=== PATIENT | male | born 1945 | race Caucasian/White ===

== ENCOUNTER → 2023-04-28 07:29 | Outpatient (REF) | payer OTHER, SELFPAY | LOC: RAD 07:29 | PROVIDERS: ATTENDING PHYSICIAN Surgery Vascular Surgery; FAMILY PHYSICIAN Family Medicine | DX: I65.23 Occlusion and stenosis of bilateral carotid arteries (principal) | CPT/HCPCS: 93880 ==

== ENCOUNTER → 2023-10-14 07:09 | Outpatient (REF) | payer OTHER, SELFPAY | LOC: RCS 07:09 | PROVIDERS: ATTENDING PHYSICIAN Internal Medicine Cardiovascular Disease; FAMILY PHYSICIAN Family Medicine | DX: I42.0 Dilated cardiomyopathy (principal) | CPT/HCPCS: 93306; Q9950 ==

== ENCOUNTER 2023-10-22 09:04 | Day surgery (SDC) | payer OTHER, SELFPAY ==
[2023-10-20 07:14] VITALS: BMI 31.3
[2023-10-20 07:42] LABS: % Basophils 0.7 % (0-2); % Immature Granulocytes 0.3 % (0-0.5); % Lymphocytes 24.5 % (20.5-51.1); % Monocytes 8.6 % (1.7-9.3); % Neutrophils 64.9 % (42.2-75.2); Absolute Basophils 0.1 10^3/uL (0-0.2); Absolute Eosinophils 0.1 10^3/uL (0-0.7); Absolute Lymphocytes 1.8 10^3/uL (1.2-3.4); Absolute Monocytes 0.6 10^3/uL (0.1-0.6); Absolute Neutrophils 4.8 10^3/uL (1.4-6.5); Hematocrit 44.5 % (39.0-52.0); Hemoglobin 14.9 g/dL (13.0-18.0); Mean Corp Hgb Conc. 33.5 g/dL (33.0-37.0); Mean Corpuscular Hgb 31.1 pg (27.0-31.0); Mean Corpuscular Volume 92.9 fL (80.0-94.0); Mean Platelet Volume 9.9 fL (7.4-10.4); Nucleated Red Blood Cells % 0 % (-); Platelet Count 198 10^3/uL (130-400); Red Blood Cell Count 4.79 10^6/uL (4.70-6.10); White Blood Cell Count 7.3 10^3/uL (4.8-10.8)
[2023-10-20 07:52] LABS: ALT (SGPT) 21 U/L (0-50); AST (SGOT) 34 U/L (17-59); Albumin 4.1 g/dl (3.5-5.0); Alkaline Phosphatase 94 U/L (38-126); Blood Urea Nitrogen 20 mg/dl (9-20); Calcium 9.4 mg/dl (8.4-10.2); Carbon Dioxide 29 mmol/L (22-30); Estimated Creatinine Clearance 79 ml/min; Glucose 118 mg/dl (70-99); Total Bilirubin 1.2 mg/dl (0.2-1.3); Total Protein 7.9 g/dl (6.3-8.2); eGFR > 60.00
[2023-10-20 07:59] LABS: Chloride 102 mmol/L (98-107); Sodium 141 mmol/L (135-145)
[2023-10-20 08:13] LABS: INR 1.44; PT 17.3 Sec (11.4-14.6)
[2023-10-22] VITALS (14 sets, daily range): BP systolic 120–144; BP diastolic 62–78; BMI 31.1
[2023-10-22] MEDS: NSS 312 ML IV (09:40)
[2023-10-22 09:55] LABS: Glucose - Point of Care 140 mg/dl (70-99)
[2023-10-22] MEDS: LOW STRENGTH ASPIRIN 243 MG PO (10:07)
--- NOTE | 2023-10-22 10:44 | ITS.CL.CATH ---
Customer Account Specialist - Catheterization
Cardiac Catheterization
Procedure Report:
LEFT AND RIGHT HEART CATHETERIZATION
Date of Procedure: October 22, 2023
Referring: Roberto Yoo
PROCEDURES:
1. Left heart catheterization, coronary angiogram.
2. Right heart catheterization.
3. Ultrasound-guided access.
INDICATION: Mr. Cleveland is a 78-year-old gentleman with past medical history of coronary artery disease status post PCI in 2005, CABG x 1 with aortic valve replacement in 2016, right lower extremity femoral bypass with stenting 2020, left carotid
endarterectomy with complete chronic occlusion of right, medically managed, paroxysmal atrial fibrillation on chronic Coumadin, held 5 days ago, PVCs, hypertension, hyperlipidemia, known dilated cardiomyopathy with heart failure with reduced
ejection fraction and underlying left bundle branch block with recent reduction further in LVEF down to 10 to 15% on October 14, 2023 being referred for a left and right heart catheterization.
ACCESS:
1. Left radial artery, 6 Peruvian sheath, under ultrasound guidance.
2. Left common femoral vein, 6 [place]uvian sheath, under ultrasound guidance using a micropuncture kit
HEMODYNAMICS : (mmHg)
RA (m) : 13
RV (s/d,m) : 36/11, 19
PA (s/d, m) : 33/21
PCWP (m) : 24
PA saturation: 66.9% on room air
AO saturation: 99.6% on room air
RA saturation: 66.2 per on room air
Cardiac Output : 4.2 L/min by William
Cardiac Index : 1.8 L/min/m-2 by William
Systemic vascular resistance: 2535 dsc^(-5)
Pulmonary vascular resistance: 2.14 torres unit
Heart rate: 64 bpm.
AO (s/d) : 164/116
CORONARY FINDINGS
DOMINANCE: Right
LEFT MAIN: The left main is a large-caliber vessel which gives rise to the left into descending artery and the circumflex artery. There is mild diffuse atherosclerotic plaque.
LEFT ANTERIOR DESCENDING: The left into descending artery is a large-caliber vessel which gives rise to one major diagonal branch and multiple small caliber diagonal branches as it courses through the anterior interventricular groove towards the
apex. There is minimal luminal irregularities.
CIRCUMFLEX: The left circumflex artery is a medium caliber vessel which gives rise to 3 major obtuse marginal branches. There is ostial left circumflex 40% stenosis and otherwise mild diffuse atherosclerotic plaque.
RIGHT CORONARY ARTERY: The right coronary artery is a large-caliber, dominant vessel which gives rise to the right posterior descending artery and the right posterolateral branch. There is a hazy high-grade 70 to 80% mid RCA in-stent restenosis
with SUKHI II flow down the distal vessel however the RPDA is filled from the patent saphenous vein graft with competitive flow antegradely through the RCA. There is diffuse 50 to 60% atherosclerotic plaque starting in the proximal RCA.
SAPHENOUS VEIN GRAFT (SVG): Widely patent saphenous vein graft to the RPDA.
SEDATION: 54 minutes of procedural sedation was utilized. An independent medical legal investigator was present to assist with and help manage the patient's level of consciousness and physiologic status.
RADIATION SUMMARY: Fluoro Time (min): 5.9, Dose (mGy): 491.53, DAP (Gy.cm2) : 42.2
Closure Device:
1. Vascular band over left radial artery, 10 cc of air.
2. Manual pressure was held over the left common femoral venous access site with successful hemostasis.
CONCLUSIONS
1. Significant mid RCA disease with RPDA filling through a widely patent saphenous vein graft.
2. Nonobstructive coronary artery disease in the left coronary system.
3. Elevated right and left-sided filling pressures with mildly decreased cardiac output in the setting of severely elevated systemic vascular resistance.
RECOMMENDATIONS
1. 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
2. Diuresis to optimize filling pressures.
3. Consideration for possible WASTEWATER PROJECT ENGINEER-D in the setting of chronic left bundle branch block.
4. Given allergy to DANN inhibitor/ARB, consider adding hydralazine nitrate as an outpatient.
5. Referral for outpatient cardiac rehab.
Copy to: Roberto Yoo
Meghana Herrera MD, FACC, [facility]
[2023-10-22] MEDS: NSS 1000 IV (11:55)
[2023-10-22 12:27] LABS: Glucose - Point of Care 117 mg/dl (70-99)
[2023-10-22] MEDS: LASIX 40 MG IV (12:30)
--- NOTE | 2023-10-22 14:07 | PTCARENOTE ---
Dr Herrera at pt beside speaking to pt and pt's .
== END 2023-10-22 15:05 | disposition home or self-care (01) ==
LOC: CATH 09:04
PROVIDERS: ATTENDING PHYSICIAN Internal Medicine Interventional Cardiology; FAMILY PHYSICIAN Family Medicine; OTHER PHYSICIAN Internal Medicine Cardiovascular Disease
DX: I25.10 Atherosclerotic heart disease of native coronary artery without angina pectoris (principal); I42.0 Dilated cardiomyopathy; I44.7 Left bundle-branch block, unspecified; I11.0 Hypertensive heart disease with heart failure; I50.22 Chronic systolic (congestive) heart failure; I48.0 Paroxysmal atrial fibrillation; E78.5 Hyperlipidemia, unspecified; Z95.2 Presence of prosthetic heart valve; Z95.5 Presence of coronary angioplasty implant and graft; E11.69 Type 2 diabetes mellitus with other specified complication; J44.9 Chronic obstructive pulmonary disease, unspecified; Z87.891 Personal history of nicotine dependence; Z79.82 Long term (current) use of aspirin; Z79.84 Long term (current) use of oral hypoglycemic drugs; Z79.4 Long term (current) use of insulin; Z79.01 Long term (current) use of anticoagulants
CPT/HCPCS: 99152; 99153; 36415; 80053; 82962; 85025; 85610; 93005; 93459; C1894; Q9967

== ENCOUNTER → 2023-11-06 07:45 | Outpatient (REF) | payer OTHER, SELFPAY | LOC: RAD 07:45 | PROVIDERS: ATTENDING PHYSICIAN Surgery Vascular Surgery; FAMILY PHYSICIAN Family Medicine | DX: I73.9 Peripheral vascular disease, unspecified (principal); I77.9 Disorder of arteries and arterioles, unspecified | CPT/HCPCS: 93880; 93922; 93925 ==

== ENCOUNTER 2023-11-23 12:51 | Inpatient (IN) | payer OTHER, SELFPAY ==
[2023-11-23] VITALS (36 sets, daily range): BP systolic 88–138; BP diastolic 57–116; BMI 31.4
[2023-11-23 09:42] LABS: % Basophils 0.5 % (0-2); % Eosinophils 1.5 % (0-6); % Immature Granulocytes 0.4 % (0-0.5); % Lymphocytes 18.4 % (20.5-51.1); % Monocytes 6.8 % (1.7-9.3); % Neutrophils 72.4 % (42.2-75.2); Absolute Basophils 0.1 10^3/uL (0-0.2); Absolute Eosinophils 0.2 10^3/uL (0-0.7); Absolute Lymphocytes 1.8 10^3/uL (1.2-3.4); Absolute Monocytes 0.7 10^3/uL (0.1-0.6); Absolute Neutrophils 7.2 10^3/uL (1.4-6.5); Hematocrit 41.8 % (39.0-52.0); Hemoglobin 14.3 g/dL (13.0-18.0); Mean Corp Hgb Conc. 34.2 g/dL (33.0-37.0); Mean Corpuscular Hgb 30.9 pg (27.0-31.0); Mean Corpuscular Volume 90.3 fL (80.0-94.0); Nucleated Red Blood Cells % 0 % (-); Platelet Count 232 10^3/uL (130-400); Red Blood Cell Count 4.63 10^6/uL (4.70-6.10); Red Cell Dist. Width 13.7 % (11.5-14.5); White Blood Cell Count 9.9 10^3/uL (4.8-10.8)
--- NOTE | 2023-11-23 09:43 | ED.GENMED ---
History of Present Illness
General
Chief Complaint: Chest Pain
Source: patient, records, spouse and family
Exam Limitations: none
Time Seen by Provider: 11/23/23 09:37
Nursing documentation reviewed up to this point in time: agreed with
Travel History
Have you had any contact with someone who has COVID-19?: No
Do you have any symptoms of coronavirus? Fever > 100 degrees, chills, cough, shortness of breath, sore throat, loss of taste or smell, muscle aches, or headache?: No
History of Present Illness
History of Present Illness:
78-year-old male cardiomyopathy heart failure patient of Dr. Yoo status post cath recently told his valves and vessels were okay he is scheduled for an AICD in a few weeks presents with a few days of fatigue shortness of breath chest pain fast
heart rates, has been on his blood thinner, has been taking his diuretic
Past History
Past History
ED Past Medical History: Arrthythmia, CAD, CHF, HTN and NIDDM
ED Past Surgical History: Cardiac
Social History
Tobacco: Smoker
Alcohol: Former
Drug: None
Personal:
Living: with family
Employment: Retired
Review of Systems
Review of Systems
All Other Systems: Not applicable
Constitutional: Reports fatigue; Denies fever
EENT: Reports no symptoms
Respiratory: Reports trouble breathing
Cardiac: Reports chest pain and palpitations; Denies diaphoresis or syncope
ABD/GI: Reports no symptoms
: Reports no symptoms
Musculoskeletal: Reports no symptoms
Skin: Reports no symptoms
Neurological: Reports dizzy and weakness
Endocrine: Reports no symptoms
Phy Exam
Physical Exam
Physical Exam:
Physical Exam
General: 78 male chronically ill-appearing
Neck: Dry lips flat neck veins
Heart: Tachycardia
Lungs: No rales
Abdomen: Not
Neuro: alert and oriented. no focal neurological deficits
Skin: no rash
Psychiatric: well kept. interactive and cooperative
Extremities: no edema.
Scores
Heart Failure Risk
Heart Failure Risk Score: Yes
History of Stroke or TIA: No
History of intubation for respiratory distress: No
Heart rate on ED arrival >/= 110: Yes
SaO2 <90% on arrival on room air: No
HR >/=110 during 3min walk test (or too ill to perform test): Yes
ECG has acute ischemic changes: No
Urea >/=12mmol/L (BUN 33.6mg/dL): Yes
Serum CO2>/=35mmol/L: No
Troponin I or T elevated to VA Level (0.4mg/dL): No
NT-proBNP >/=5,000ng/L (5,000pg/ml): Yes
HF Risk Score: 4
Admission Status: HIGH RISK 26.1% Consider SNF treatment or admission to hospital
Heart Score for Chest Pain Patients
STEMI patient?: No
History: Slightly or Non-Suspicious
ECG: Nonspecific Repolarization
Age: >/= 65 years
Risk Factors: >/= 3 Risk Factors or History of CAD
Troponin: </= Normal Limit
Heart Score for Chest Pain Patients: 5
Heart Score Risk: 20.3% MACE over next 6 weeks
Course
Orders/Labs/Results
Orders:
Orders
11/23/23 09:00
Electrocardiogram (*1) Urgent
Reason for Study: Chest Pain
EKG- Treatment ONCE
11/23/23 09:30
Complete Blood Count/With Diff Urgent
Comprehensive Metabolic Panel Urgent
Magnesium Urgent
Comment: ADD ON
NT-proBNP Urgent
Comment: ADD ON
Troponin I Urgent
11/23/23 09:31
PTT Urgent
Prothrombin Time Urgent
11/23/23 09:37
CR Chest Portable - 1 View Urgent
Comment:
Reason For Exam: sob
Reason Study Needs to be Portable: Patient Unstable
11/23/23 09:38
Add On- LAB Urgent
Tests Added?: pbnp
11/23/23 09:50
Diltiazem 125 mg/125 ml Nss [Cardizem] 125 mg in 125 ml IV NOW
Initial dose in mg/hr, then titrate:: 5
Titrate to keep:: Heart rate 80-100 bpm
Titrate by mg/hr:: 5 mg/hr
Frequency of titrations (minutes):: 15
Maximum dose in mg/hr:: 15
11/23/23 10:11
Add On- LAB Urgent
Tests Added?: magnesium
11/23/23 10:14
CARDIOLOGY CONSULT Routine
Consulting Provider: Allie Veloz
Was physician already notified: Yes
Reason for consult: afib/CP/SOB
11/23/23 10:27
Furosemide [Lasix] 60 mg IV NOW STA
11/23/23 12:37
Admit/Transfer Patient As Directed
Co-Sign Provider:
Level of Care: Inpatient admission
Assign to:: IVU
Physician / Group: Subhash
Diagnosis: CHF, afib
Reason for Hospitalization: CHF, afib
Expected length of stay greater than two midnights?: Yes
ELOS- Estimated Length of Stay in days: 4
I certify the patient meets the requirements for IP care: Yes
11/23/23 12:39
Code Status As Directed
Resuscitation Status: Full Code
11/23/23 13:41
Dextrose 50%-Water [Dextrose 50% Syringe] 12.5 grams IV [id number] PRN
Glucagon [GlucaGen] 1 mg IM PRN PRN
11/23/23 13:41
HF DIETARY CONSULT Routine
HF EDUCATOR CONSULT Routine
Comment:
Activity As Directed
Activity Level: With Assistance
Bedside Glucose Monitoring As Directed
Frequency: AC&HS
Additional Instructions:: Change to q6h if pt on TPN, tube feeding or not eating
Intake/ Output As Directed
Frequency: Per unit guidelines
Patient Education As Directed
Type: CHF folder
Comment: give on admission. Document in Interdisciplinary Education record
Sleep Apnea Assessment by RN As Directed
Comment:
Physician Instructions:
Vital Signs As Directed
Frequency: Other
Additional Instructions:: Q12 or per unit guidelines if more frequent.
Weight As Directed
Frequency: Daily
Type of Scale: Standing Scale
Comment: Daily morning weight. If unable to stand, use balanced bed scale.
Weight As Directed
Frequency: Once
Type of Scale: Standing Scale
Comment: Upon Admission. If unable to stand, use balanced bed scale.
Pulse Ox/cont/shift [RESP] Routine
Quantity: 1
Special Instructions: Daily pulse oximetry at rest. If greater than 92% at rest also obtain pulse oximetry
while ambulating as tolerated.
11/23/23 14:30
Troponin I Q6H
Comment: at admission & every 6 hours x 2 (3 total), ECG to be done with each level
11/23/23 Dinner
1800 calorie (15 carb) Diabetic
At Your Request: Full Participation
Fluid Restriction: 1800 mL/day (60 oz)
Diabetic Diet: Sodium, 2 Gram
11/23/23 16:00
Furosemide [Lasix] 80 mg IV BID AT 0800,1600
11/23/23 16:30
Insulin Aspart High Resistance [Novolog Flexpen-High Resistance] See Protocol SC AC
Insulin Aspart Pen [Novolog Flexpen] 5 units SC BID@0730,1630
11/23/23 18:00
Aspirin Low Dose EC [Aspir Low (Enteric Coated)] 81 mg PO QPM
Atorvastatin [Lipitor] 80 mg PO QPM
Potassium Chloride [KCl] 10 meq PO QPM
11/23/23 19:41
Troponin I Q6H
Comment: at admission & every 6 hours x 2 (3 total), ECG to be done with each level
11/23/23 20:00
Apixaban [Eliquis] 5 mg PO BID
11/23/23 22:00
insulin glargine [Lantus U-100 Insulin] 32 unit SC HS
11/24/23 01:41
Troponin I Q6H
Comment: at admission & every 6 hours x 2 (3 total), ECG to be done with each level
11/24/23 06:00
Basic Metabolic Panel IN AM
Glycohemoglobin (HgbA1c) IN AM
11/24/23 08:00
Carvedilol [Coreg] 12.5 mg PO DAILY
Cyanocobalamin [Vitamin B-12] 1,000 mcg PO DAILY
Empagliflozin [Jardiance] 12.5 mg PO DAILY
Magnesium Oxide 500 mg PO DAILY
Multivitamin [Theragran] 1 tablet PO DAILY
Spironolactone [Aldactone] 25 mg PO DAILY
11/25/23 06:00
Basic Metabolic Panel IN AM
11/26/23 06:00
Basic Metabolic Panel IN AM
Abnormal Lab Results
11/23/23 11/23/23
09:30 09:31
RBC 4.63 L 10^6/uL
(4.70-6.10)
Absolute Neuts (auto) 7.2 H 10^3/uL
(1.4-6.5)
Absolute Monos (auto) 0.7 H 10^3/uL
(0.1-0.6)
Lymphocytes % 18.4 L %
(20.5-51.1)
PT 22.2 H Sec
(11.4-14.6)
APTT 45.0 H Sec
(23.4-35.0)
BUN 34 H mg/dl
(9-20)
Creatinine 1.4 H mg/dL
(0.7-1.3)
Glucose 195 H mg/dl
(70-99)
Total Bilirubin 1.5 H mg/dl
(0.2-1.3)
AST 69 H U/L
(17-59)
Troponin I 0.118 H* ng/ml
11/23/23 09:30
11/23/23 09:30
Vital Signs
Initial and Last Documented VS:
Initial Vital Signs
Temp Pulse Resp BP Pulse Ox
98.4 F 73 20 138/75 97
11/23/23 09:06 11/23/23 09:06 11/23/23 09:06 11/23/23 09:06 11/23/23 09:06
Last Documented Vital Signs
Temp Pulse Resp BP Pulse Ox
97.8 F 117 20 115/80 93
11/23/23 13:44 11/23/23 14:15 11/23/23 13:44 11/23/23 14:00 11/23/23 13:44
MDM/Problems Addressed
Differential Diagnosis Includes:
Electrolyte abnormality dehydration rapid A-fib chronic heart failure less likely primary aCS
MDM/Problems Addressed:
Fatigue shortness of breath rapid
Chronic conditions affecting care: DM, HTN, CAD, Cardiomyopathy and Arrhythmia
Acute Exacerbation and/or Progression of Chronic Illness: DM, HTN, Cardiomyopathy and Arrhythmia
*EKG
Interpreted by ED Provider?: Yes
Interpretation: abnormal
Comparison EKG: no comparison EKG present
Heart Rate: 130
Rate: tachycardiac
Rhythm: a-fib
Ischemia: non-specific ST changes
*Ict Account Manager Interpretation
Rate: tachycardiac
Interpretation: abnormal
Heart Rate: 130
Rhythm: a-fib
*Critical Care Note
Total Time (30-74mins, 75-104mins- exclusive of procedures): 32
Data Reviewed
Review of Other/Old Records Reveals: Labs, Records and Operative Reports
Source: patient, records and spouse
Update Note
Update Note:
10:12 AM chest x-ray noted labs noted will try to control his rate, does not have a lot of room for diuresis with his blood pressure message sent to hospitalist and cardiology
ED Attending Note
-
Portions of this chart may have been created with voice recognition software.� Occasional wrong word or��sound alike� substitutions may have occurred due to the inherent limitations of voice recognition software.
Discharge Plan
Departure
Patient Disposition: Admit
Date of Disposition: 11/23/23
Time of Disposition: 10:39
Admit to: IVU
Presentation/result/management discussed w/ accepting MD/DO: Hospitalist
Patient with high blood pressure during this ER visit?: No
Condition: Fair
Covid-19: Not Applicable
Discharge Problem:
Paroxysmal A-fib, Peripheral vascular disease, unspecified, CAD (coronary artery disease), Atrial fibrillation
Interventions
Interventions:
*Risk Screen - Suicide Last Done: 11/23/23 09:31
*General Assessment Last Done: 11/23/23 09:30
*Neglect/Abuse Screening Last Done: 11/23/23 09:31
ED- Fall Risk Assessment Last Done: 11/23/23 10:51
*ED COVID-19 Vaccine History Last Done: 11/23/23 09:11
*Nursing Disposition Last Done: 11/23/23 13:07
ED- Cardiac Assessment Last Done: 11/23/23 09:31
Discharge Date and Time
Discharge Date/Time: 11/23/23 13:30
[2023-11-23] MEDS: CARDIZEM 125 IV (09:53)
[2023-11-23 09:55] LABS: ALT (SGPT) 33 U/L (0-50); AST (SGOT) 69 U/L (17-59); Albumin 3.7 g/dl (3.5-5.0); Alkaline Phosphatase 116 U/L (38-126); Blood Urea Nitrogen 34 mg/dl (9-20); Calcium 9.4 mg/dl (8.4-10.2); Carbon Dioxide 25 mmol/L (22-30); Chloride 102 mmol/L (98-107); Estimated Creatinine Clearance 56 ml/min; Glucose 195 mg/dl (70-99); Potassium 3.9 mmol/L (3.5-5.1); Sodium 137 mmol/L (135-145); Total Bilirubin 1.5 mg/dl (0.2-1.3); Total Protein 7.1 g/dl (6.3-8.2); eGFR 52.09
[2023-11-23 09:56] LABS: INR 1.96; PT 22.2 Sec (11.4-14.6)
[2023-11-23 10:08] LABS: NT-proBNP 9740 pg/ml; Troponin I 0.118 ng/ml
[2023-11-23] MEDS: LASIX 60 MG IV (10:29)
[2023-11-23 10:30] LABS: Magnesium 2.1 mg/dl (1.6-2.3)
--- NOTE | 2023-11-23 12:03 | HPS.HSE ---
Family Physician
-
Family Physician: Dennis Hidalgo
Chief Complaint
-
chest pain, SOB
History of Present Illness
78 y/o M with PMHx:
Chronic HFrEF
Schizophrenia
CAD s/p PCI 2005, CABG x 1 with AVR 2016 (for )
PAD
RLE femoral bypass with stents in 2020
L CEA 2005
Near complete, chronic occlusion of R ICA
LBBB
DM2
COPD
Essential hypertension
Hyperlipidemia
Paroxysmal atrial fibrillation
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
who p/w chief complaints of shortness of breath and chest pain. 4 days ago the patient began having the symptoms. He noticed that he got severely short of breath and had chest pain with climbing 2 flights of stairs. He also felt lightheaded and
had some blurry vision. He denies any palpitations. He denies any weight gain, in fact he says he had weight loss. He does have orthopnea but not paroxysmal nocturnal dyspnea. Denies headache, neck stiffness, nausea, vomiting, diarrhea,
abdominal pain, rash, dysuria.
Medical History
Past Medical History
Past Medical History: Reports Other (as per HPI)
Past Surgical History: Reports Other (as per HPI)
Social History
Tobacco: Former Smoker
Alcohol: Former
Drug: None
Family History
Family History: Not pertinent
Allergies / Home Medications
Allergies reflects when Allergies were last updated in [employer].
Home Medications with original date entered in [employer]
Allergy/Medication List:
Allergies
Allergy/AdvReac Type Severity Reaction Status Date / Time
DANN Inhibitors Allergy Swelling Verified 10/22/23 15:37
enalaprilat [From Vasotec] Allergy angioedema Verified 10/22/23 09:49
lisinopril Allergy angioedema Verified 10/22/23 09:49
losartan Allergy angioedema Verified 10/22/23 09:49
Home Medications
aspirin 81 mg tablet,delayed release 81 mg PO QPM Blood clot prevention/tx 03/20/17
atorvastatin 80 mg tablet 80 mg PO QPM High cholesterol 12/27/20
cyanocobalamin (vitamin B-12) 1,000 mcg tablet 1,000 mcg PO DAILY Supplement 12/27/20
metformin 1,000 mg tablet 1,000 mg PO BID Diabetes 01/15/21
magnesium oxide 500 mg PO DAILY #30 tabs 01/19/21
potassium chloride 10 mEq tablet,extended release 10 meq PO QPM Electrolyte Repletion 08/24/23
furosemide 40 mg tablet 40 mg PO BID Fluid retention/Swelling #0 tabs 10/22/23
insulin glargine 100 unit/mL subcutaneous solution (Lantus U-100 Insulin) 32 unit SC HS Diabetes 10/22/23
spironolactone 25 mg tablet 25 mg PO DAILY #30 tabs 10/22/23
apixaban 5 mg tablet (Eliquis) 5 mg PO BID 11/23/23
carvedilol 25 mg tablet 12.5 mg PO DAILY 11/23/23
empagliflozin 25 mg tablet (Jardiance) 12.5 mg PO DAILY 11/23/23
insulin aspart U-100 100 unit/mL (3 mL) subcutaneous pen (Novolog FlexPen U-100 Insulin aspart) 0 sliding scale dose SC QPM 11/23/23
insulin aspart U-100 100 unit/mL (3 mL) subcutaneous pen (Novolog FlexPen U-100 Insulin aspart) 5 unit SC BID 11/23/23
therapeutic multivitamin 1 tab PO DAILY 11/23/23
Review of Systems
-
History Source: Patient
A 12 point ROS was completed and negative except as noted: Yes
Physical Exam
Vital Signs
Vital Signs
Temp Pulse Resp BP Pulse Ox
98.4 F 135 27 120/91 91
11/23/23 09:06 11/23/23 11:15 11/23/23 11:15 11/23/23 11:15 11/23/23 09:54
Physical Exam
General: Other (.)
Laboratory Results
-
11/23/23 09:30
11/23/23 09:30
Laboratory Results
PT 22.2 Sec (11.4-14.6) H 11/23/23 09:31
INR 1.96 11/23/23 09:31
APTT 45.0 Sec (23.4-35.0) H 11/23/23 09:31
Total Bilirubin 1.5 mg/dl (0.2-1.3) H 11/23/23 09:30
AST 69 U/L (17-59) H 11/23/23 09:30
ALT 33 U/L (0-50) 11/23/23 09:30
Alkaline Phosphatase 116 U/L (38-126) 11/23/23 09:30
Troponin I 0.118 ng/ml H* 11/23/23 09:30
Impression/Plan
-
Gen: NAD, AAOx3.
Eyes: EOMI, PERRLA, no scleral icterus.
Neck: supple.
CV: Tachycardic, irregular irregular, +S1/S2, no m/r/g.
Resp: Rales, greatest in the bases
Abd: +BS, soft, NT, ND
Skin: No rashes.
Neuro: CN 2-12 intact, non-focal.
Psych: Normal mood and affect.
CXR: Suspect mild congestive heart failure.
Acute on chronic HFrEF, paroxysmal atrial fibrillation with rapid ventricular response:
-KATJA, likely cardiorenal syndrome, trend Cr with diuresis
-proBNP 9740
-cont cardizem gtt
-IV Lasix
-daily wts, I/Os, FR
-was for AICD in a few weeks
-cardiology to see
-cont Eliquis/BB/Jardiance/aldactone
-trend trop
DM2:
-cont lantus/premeal novolog/SSI/accuchecks/diabetic diet
Other problems:
Essential hypertension: Cont BB/Aldactone
Hyperlipidemia: cont statin
Schizophrenia
CAD s/p PCI 2005, CABG x 1 with AVR 2017 (for )
PAD: cont ASA/statin
RLE femoral bypass with stents in 2020
L CEA 2005
Near complete, chronic occlusion of R ICA
LBBB
COPD
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
FULL/Eliquis/IVU
--- NOTE | 2023-11-23 12:21 | PHANOTE ---
11/23/2023, med rec tech, spoke to spouse to obtain pt.'s med. history; per spouse, pt. received Jardiance 25 mg from [facility] when he was supposed to receive 10 mg and PCP told pt. it is okay to take 12.5 mg daily; could not confirm with another
source.
--- NOTE | 2023-11-23 13:57 | CON.CAR ---
Consultation
Consultation Request
Date/Time Consultation Requested: 11/23/2023
Date/Time Consultation Performed: 11/23/2023
Requesting Provider: Dr. Cullen
Performing Provider: Dr. Veloz
Reason for Consultation: Rapid atrial fibrillation, heart failure
Medical History
-
Chief Complaint: Shortness of breath and chest pain
History of Present Illness:
I had the pleasure to meet Thuan Cleveland along with his in IVU, 2241 for evaluation of rapid atrial fibrillation and heart failure. Thuan typically follows with my colleague, Dr. Yoo. He is a 78-year-old medically complex gentleman
with significant cardiac and vascular history. He has a history of coronary artery disease status post PCI to the RCA with a Cypher stent 08/06/2005 followed by CABG x 1 [SVG to PDA] along with #27mm bovine pericardial tissue aortic valve replacement
April 14, [address] King for severe aortic stenosis and dilated cardiomyopathy. He also has a history of paroxysmal atrial fibrillation, type 2 diabetes mellitus, left bundle branch block, and hyperlipidemia. In 2004 he required
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 He also has moderate sleep apnea on CPAP. Additionally he follows with Dr. Cesar Gallagher for history of left CEA in 2005. He was recently seen by Dr. Gallagher in routine follow-up in
November 14, 2023 with repeat carotid duplex on 11/06/2023 noting heavy calcified plaque in the right common carotid and internal carotid arteries with very low flow in the internal carotid artery along with decreased velocities. There is minimal plaque
on the left carotid but less than 50%. There were discussions regarding carotid revascularization however he was felt to be too high risk with recommendations for close surveillance imaging and follow-up. Additionally he has a history of
peripheral vascular disease of the lower extremities with noninvasive studies 11/06/2023 with stable disease with known chronic SFA occlusion and patent femoral endarterectomy bypass with stenting on the right from 2020. Recent 2D echocardiogram
noted a reduction of his ejection fraction from 25-30% to 10 to 15% and he underwent repeat left heart catheterization with Dr. Herrera October 22, 2023. He was found to have significant mid RCA stenosis estimated 70-80% with RPDA filled through a
widely patent SVG. There was no obstructive coronary artery disease in the left coronary system. Right heart catheterization found elevated right and left filling pressures with mildly decreased cardiac output and severely elevated SVR [pulm
capillary wedge pressure 24, cardiac index 1.8 L/min/m�, SVR 2535]. He was seen in our office November 12, 2023 by LALI Mckinney. At this office visit his warfarin was transitioned to Eliquis 5 mg twice daily which he started on November 13. No
additional medication changes were made at this visit. He was also set up for placement of a BiV ICD with Dr. Abarca scheduled December 08, 2023. At the time of this visit his weight was recorded as 225 pounds and he was in sinus rhythm. He and his
state that since last Friday he has been more fatigued with worsening shortness of breath and overall ill feeling. He did note some chest pain with climbing 2 flights of stairs along with lightheadedness and blurred vision. This morning he
had difficulty just standing to brush his teeth prompting them to present to the ER for evaluation. He denies chest pain or pressure. He denies fast rates or palpitations. No syncope or near syncope. No bleeding on anticoagulation. He denies
weight gain but feels like he has lost weight
Past medical/surgical history: Dilated cardiomyopathy, single-vessel RCA disease status post bypass surgery in 2016, history of prior RCA stent, severe aortic stenosis status post aortic valve replacement in 2016, hypertension, dyslipidemia, type 2
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
Eliquis anticoagulation, left bundle branch block, cataract surgery status post surgery 2021, COPD with remote history of tobacco use
Past Medical History
Past Medical History: Other (See HPI)
Past Surgical History: Other (See HPI)
Social History
Tobacco: Former Smoker
Alcohol: None
Drug: None
Personal:
Living: With Family
Employment: Retired
Family History
Family History: CAD, Diabetes and Hypertension
Allergies / Home Medications
Allergy/AdvReac Type Severity Reaction Status Date / Time
DANN Inhibitors Allergy Swelling Verified 10/22/23 15:37
enalaprilat [From Vasotec] Allergy angioedema Verified 10/22/23 09:49
lisinopril Allergy angioedema Verified 10/22/23 09:49
losartan Allergy angioedema Verified 10/22/23 09:49
�Medication �Instructions �Recorded �Confirmed �Type
aspirin 81 mg tablet,delayed 81 mg PO QPM Blood clot 03/20/17 11/23/23 History
release prevention/tx
atorvastatin 80 mg tablet 80 mg PO QPM High cholesterol 12/27/20 11/23/23 History
cyanocobalamin (vitamin B-12) 1,000 mcg PO DAILY Supplement 12/27/20 11/23/23 History
1,000 mcg tablet
metformin 1,000 mg tablet 1,000 mg PO BID Diabetes 01/15/21 11/23/23 History
magnesium oxide 500 mg PO DAILY #30 tabs 01/19/21 11/23/23 Rx
potassium chloride 10 mEq 10 meq PO QPM Electrolyte Repletion 08/24/23 11/23/23 History
tablet,extended release
furosemide 40 mg tablet 40 mg PO BID Fluid 10/22/23 11/23/23 Rx
retention/Swelling #0 tabs
insulin glargine 100 unit/mL 32 unit SC HS Diabetes 10/22/23 11/23/23 History
subcutaneous solution (Lantus
U-100 Insulin)
spironolactone 25 mg tablet 25 mg PO DAILY #30 tabs 10/22/23 11/23/23 Rx
apixaban 5 mg tablet (Eliquis) 5 mg PO BID 11/23/23 11/23/23 History
carvedilol 25 mg tablet 12.5 mg PO DAILY 11/23/23 11/23/23 History
empagliflozin 25 mg tablet 12.5 mg PO DAILY 11/23/23 History
(Jardiance)
insulin aspart U-100 100 unit/mL 0 sliding scale dose SC QPM 11/23/23 11/23/23 History
(3 mL) subcutaneous pen (Novolog
FlexPen U-100 Insulin aspart)
insulin aspart U-100 100 unit/mL 5 unit SC BID 11/23/23 11/23/23 History
(3 mL) subcutaneous pen (Novolog
FlexPen U-100 Insulin aspart)
therapeutic multivitamin 1 tab PO DAILY 11/23/23 11/23/23 History
Review of Systems
-
History Source: Patient and Family
Constitutional: Fatigue
EENT: No Symptoms
Respiratory: Trouble Breathing
Cardiac: Chest Pain
Abdomen/GI: No Symptoms
: No Symptoms
Musculoskeletal: No Symptoms
Skin: No Symptoms
Neurological: Weakness
Endocrine: No Symptoms
Hematologic/Lymphatic: No Symptoms
Physical Exam
Vital Signs
Temp Pulse Resp BP Pulse Ox
97.8 F 116 20 103/67 93
11/23/23 13:44 11/23/23 12:45 11/23/23 13:44 11/23/23 12:45 11/23/23 13:44
Lab Results
11/23/23 09:30
11/23/23 09:30
Troponin I 0.118 ng/ml H* 11/23/23 09:30
Ksf-O-Qgqfgmuhtlp Pept 9740 pg/ml 11/23/23 09:30
Physical Exam
General: Well Developed, Well Nourished and Other (Mild respiratory distress)
HEENT: Normocephalic, Anicteric and Moist Mucous Membranes
Respiratory: Other (Bronchovesicular breath sounds with bibasilar crackles)
Cardiac: S1/S2 and Irregular Rhythm (Tachycardic); Negative Murmur or Peripheral Edema
GI: Soft, Non Tender, Non Distended and Normal Bowel Sounds
Skin: Warm; Negative Rash
Neuro: AO x 3 and Nonfocal/Grossly Intact
Psych: Calm
Impression / Plan
-
Collector Of Aquarium Specimens: Dr. Yoo
Nurse Transition: Dr. Abarca
Impression:
Rapid atrial fibrillation
History of paroxysmal atrial fibrillation, last episode postop in 2017
Left bundle branch block
Acute on chronic heart failure with reduced ejection fraction, decompensation likely driven by rapid atrial fibrillation, LV ejection fraction 10 to 15% on echocardiogram
Acute renal insufficiency likely secondary to cardiorenal syndrome
Chest pain with abnormal cardiac troponin
Coronary artery disease status post RCA PCI in 2005 and SVG to PDA in 2016 with recent cardiac catheterization noting significant mid RCA disease with RPDA filling through the widely patent SVG October 22, 2023
Bioprosthetic AVR 2017 for severe aortic stenosis
Hypertension
Hyperlipidemia
Left carotid CEA 2005
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 Gallagher
COPD
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
2D echocardiogram 10/14/2023: Normal LV size with severely reduced LV systolic function, EF estimated 10 to 15%. Apical akinesis. Mild LVH. Grade 3 diastolic dysfunction with increased filling pressures. Mild MR. #27 bovine aortic valve with
peak/mean gradient 9/5 mmHg with trace AI. No significant TR and unable to estimate right heart pressures.
Left heart catheterization 10/22/2023: Right dominant. Left main with mild diffuse atherosclerotic plaque. LAD with minimal luminal irregularities, circumflex with ostial 40% stenosis otherwise mild diffuse plaque. RCA with hazy high-grade 70 to
80% mid RCA in-stent restenosis. Right PDA failed with patent saphenous vein graft and competitive flow through the RCA. Diffuse 50 to 60% plaque in the proximal RCA
Right heart catheterization 10/22/2023:
RA (m) : 13
RV (s/d,m) : 36/11, 19
PA (s/d, m) : 33/21
PCWP (m) : 24
PA saturation: 66.9% on room air
AO saturation: 99.6% on room air
RA saturation: 66.2 per on room air
Cardiac Output : 4.2 L/min by William
Cardiac Index : 1.8 L/min/m-2 by William
Systemic vascular resistance: 2535 dsc^(-5)
Pulmonary vascular resistance: 2.14 torres unit
Heart rate: 64 bpm
Plan:
Patient presents with symptomatic rapid atrial fibrillation and decompensated chronic heart failure with reduced ejection fraction
-He is currently on IV Cardizem drip however given degree of cardiomyopathy we will switch him to amiodarone drip and wean IV Cardizem off. Discussed plan with nursing
-He does have a history of amiodarone use in the remote past which required discontinuation for abnormal LFTs
-He was recently switched from Coumadin to Eliquis on November 12, 2023 and started Eliquis November 14, 2023. Prior to this he did have interruption of his warfarin therapy for cardiac catheterization on October 22, 2023.
-Would prefer to restore sinus rhythm and if respiratory status allows we will proceed with transesophageal echocardiogram/cardioversion on 11/24/2023
-Will discuss with the EP long-term antiarrhythmic therapy
-TSH pending
- LFTs with elevated AST 69 but normal ALT and alkaline phosphatase. AST previously normal at 34 on 10/20/2023 and likely related to hepatic congestion
Acute on chronic HFrEF with borderline cardiac output and elevated SVR at time of cardiac catheterization 10/22/2023
-proBNP 9740
-IV Lasix
-Plan to restore sinus rhythm
-Continue goal-directed medical therapy including carvedilol 12.5 mg which will be increased to twice daily, Jardiance, and spironolactone. Patient has contraindications to use of DANN/ARB or ARNI given angioedema with DANN inhibitor requiring
tracheostomy in remote past
-Patient is currently scheduled for FASTENER SEWING MACHINE OPERATOR�D implant with Dr. Abarca next month, 12/08/2023, and will discuss with EP -would repeat right heart catheterization at the time of device implant
Chest pain with abnormal cardiac troponin and mid RCA stenosis based on recent cardiac catheterization October 22, 2023
-Will review cath films with interventional cardiology
-Initial troponin 0.118, second troponin 0.130. Trend to peak
-Patient is currently chest pain-free
-Continue aspirin and medical therapy including plan to restore sinus rhythm
-Check lipid profile
-Trend cardiac troponin
Acute renal insufficiency in the setting of heart failure and rapid atrial fibrillation, likely low-flow
-Creatinine 1.4, baseline 0.9-1.2
-Monitor renal function with diuresis
Significant peripheral vascular disease including lower extremity PAD and carotid disease followed by Dr. Gallagher
-No active issue
-Continue aspirin and statin
Type 2 diabetes mellitus on insulin
-Last hemoglobin A1c in August 2023 with hemoglobin A1c 8.3% with hemoglobin A1c's dating back to 2017 also in the mid eights
-Discussed importance of improved glycemic control given significant cardiac and vascular disease
-Would benefit from outpatient endocrine appointment as well as a CGM
Bioprosthetic AVR normally functioning based on echocardiogram 10/14/2023
Data Reviewed
-
EKG: Tracing Personally Visualized and interpreted
Radiology: Report Reviewed by me
Medical Tests (Nuc Med, Echo etc): Report Reviewed by me
Labs: Labs Reviewed by me
Old Records: Reviewed
--- NOTE | 2023-11-23 14:21 | PTCARENOTE ---
Rec'd pt from ED AAOx3 w/c/o of 'mild 2/10 chest discomfort' & mild SOB w/exertion. Pt w/IV Cardizem drip infusing at 15mg/mL/hr as ordered by . Pt's VS stable w/BP 108/73. Pt's HR in the 130's-140's w/activity & in the 120's at rest. Pt did have
a 13 beat run of VT just after arrival & Trades Helper consulted notified. Dr Veloz to come see pt. Pt w/call gonzalez within reach, spouse at bedside. Plan of care ongoing.
[2023-11-23 14:36] LABS: Glucose - Point of Care 107 mg/dl (70-99)
[2023-11-23] MEDS: NOVOLOG FLEXPEN 5 UNITS SC (16:11)
[2023-11-23] MEDS: LASIX 80 MG IV (16:11)
[2023-11-23] MEDS: NOVOLOG FLEXPEN-HIGH RESISTANCE 1 UNITS SC (16:39)
[2023-11-23] MEDS: ASPIR LOW (ENTERIC COATED) 81 MG PO (17:01)
[2023-11-23] MEDS: KCL 10 MEQ PO (17:01)
[2023-11-23] MEDS: CORDARONE 518 MG IV (17:01)
[2023-11-23] MEDS: LIPITOR 80 MG PO (17:01)
[2023-11-23 18:33] LABS: TSH Reflex To Free T4 3.19 uIU/ml (0.47-4.68)
[2023-11-23] MEDS: ELIQUIS 5 MG PO (19:52)
[2023-11-23] MEDS: COREG 12.5 MG PO (19:52)
[2023-11-23 20:37] LABS: Troponin I 0.122 ng/ml
[2023-11-23 22:39] LABS: Glucose - Point of Care 171 mg/dl (70-99)
[2023-11-23] MEDS: LANTUS 0.320000000000000007 UNITS SC (22:48)
--- NOTE | 2023-11-23 23:08 | PTCARENOTE ---
Received patient at change of shift. IV Cardizem gtt removed at approx 19:00 d/t completed bag and goal was to wean gtt off. Dr. Veloz aware. Amiodarone currently infusing at 0.5 mg/min per protocol. IV site intact. Patient aware of NPO status
at midnight. HS blood sugar obtained w/ a result of 171. Patient due for 32 units of Lantus at 22:00, which is patients usual HS dose at home. This RN spoke to Shakeel VARELA regarding patients NPO status at midnight, and if the dosage should be
cut in half. Shakeel instructed RN to ask patient 'what would you take at home if you were NPO for a procedure'. Patient responded and stated that he would not cut his dose, and would take the full 32 units of Lantus. Per pts response CLOTH LAMINATING SUPERVISOR made
aware and instructed RN to give full dose. This RN offered HS snack w/ his Lantus, and patient refused. Patient aware to report to nursing if he feels symptomatic of a low blood sugar. Call gonzalez in reach.
[2023-11-24] VITALS (10 sets, daily range): BP systolic 86–132; BP diastolic 59–87; BMI 30.5
[2023-11-24] MEDS: ATIVAN 0.5 MG IV (02:39)
[2023-11-24] MEDS: NSS (PRESERVATIVE FREE) 0.25 ML IV (02:40)
[2023-11-24 03:30] LABS: ALT (SGPT) 41 U/L (0-50); AST (SGOT) 71 U/L (17-59); Albumin 3.5 g/dl (3.5-5.0); Alkaline Phosphatase 122 U/L (38-126); Blood Urea Nitrogen 34 mg/dl (9-20); Calcium 8.8 mg/dl (8.4-10.2); Carbon Dioxide 22 mmol/L (22-30); Chloride 104 mmol/L (98-107); Direct Bilirubin 0.3 mg/dl (0.0-0.4); Estimated Creatinine Clearance 61 ml/min; Glucose 204 mg/dl (70-99); Potassium 4.2 mmol/L (3.5-5.1); Sodium 134 mmol/L (135-145); Total Bilirubin 1.3 mg/dl (0.2-1.3); eGFR 56.93
--- NOTE | 2023-11-24 03:35 | PTCARENOTE ---
Patient rang call gonzalez at approx 02:25 stating 'Im having a panic attack. I need something to calm me down. It feels like my heart is about to jump out of my chest'. Tele monitor shows Afib w/ BBBC and occasional PVCs. HR remains in the 100's-120s
at rest, BP 132/81. Emotional support provided and attempted to use diversional activities such as playing music. Patient adamant on receiving lorazepam. Rudi VARELA notified and orders obtained for 0.5mg of IV Ativan. Patient currently
resting in bed. Call gonzalez in reach.
[2023-11-24 03:45] LABS: Troponin I 0.118 ng/ml
[2023-11-24 06:59] LABS: Glucose - Point of Care 219 mg/dl (70-99)
[2023-11-24] MEDS: NOVOLOG FLEXPEN-HIGH RESISTANCE SC (07:36)
--- NOTE | 2023-11-24 08:21 | W.PN.CARDCBS ---
Addendum entered and electronically signed by Dwain Mitchell DO 11/24/23 10:47:
I saw and examined the patient.
The Picker Box Operator's note was reviewed and I agree with the note.
Comment:
Plan:
Despite IV Amio pt remained in symptomatic, rapid aFib prompting TARA/cv.
Transition to PO amiodarone.
Cont Eliquis
Cont IV diuresis
Need to postpone STRIPING MACHINE OPERATOR-D pacer implant to 4-5 weeks post cardioverson.
Cont GDMT
Med tx of nonMI troponin
Original Note:
Today's Communication / Plan
-
Despite amiodarone drip heart rates remain rapid in atrial fibrillation and patient is symptomatic. Will proceed with TARA/cardioversion
Continue IV diuresis
Will need to postpone STRIPING MACHINE OPERATOR�D implant for 4-5 weeks post CV
Impression / Plan
-
Drop Hammer Setter Up: Dr. Yoo
Adhesive Bonding Machine Operator: Dr. Abarca
Impression:
Presented 11/23/23 palpitations, SOB
Rapid atrial fibrillation
History of paroxysmal atrial fibrillation, last episode postop in 2016
Left bundle branch block
Acute on chronic heart failure with reduced ejection fraction, decompensation likely driven by rapid atrial fibrillation, LV ejection fraction 10 to 15% on echocardiogram
Acute renal insufficiency likely secondary to cardiorenal syndrome
Chest pain with abnormal cardiac troponin
Coronary artery disease status post RCA PCI in 2005 and SVG to PDA in 2016 with recent cardiac catheterization noting significant mid RCA disease with RPDA filling through the widely patent SVG October 22, 2023
Bioprosthetic AVR 2017 for severe aortic stenosis
Hypertension
Hyperlipidemia
Left carotid CEA 2005
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 Gallagher
COPD
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
2D echocardiogram 10/14/2023: Normal LV size with severely reduced LV systolic function, EF estimated 10 to 15%. Apical akinesis. Mild LVH. Grade 3 diastolic dysfunction with increased filling pressures. Mild MR. #27 bovine aortic valve with
peak/mean gradient 9/5 mmHg with trace AI. No significant TR and unable to estimate right heart pressures.
Left heart catheterization 10/22/2023: Right dominant. Left main with mild diffuse atherosclerotic plaque. LAD with minimal luminal irregularities, circumflex with ostial 40% stenosis otherwise mild diffuse plaque. RCA with hazy high-grade 70 to
80% mid RCA in-stent restenosis. Right PDA failed with patent saphenous vein graft and competitive flow through the RCA. Diffuse 50 to 60% plaque in the proximal RCA
Right heart catheterization 10/22/2023:
RA (m) : 13
RV (s/d,m) : 36/11, 19
PA (s/d, m) : 33/21
PCWP (m) : 24
PA saturation: 66.9% on room air
AO saturation: 99.6% on room air
RA saturation: 66.2 per on room air
Cardiac Output : 4.2 L/min by William
Cardiac Index : 1.8 L/min/m-2 by William
Systemic vascular resistance: 2535 dsc^(-5)
Pulmonary vascular resistance: 2.14 torres unit
Heart rate: 64 bpm
Plan:
Patient presents with symptomatic rapid atrial fibrillation and decompensated chronic heart failure with reduced ejection fraction, EF 10-15%
-Initially on IV Cardizem drip however given degree of cardiomyopathy switched to amiodarone drip and wean IV Cardizem off 11/23/23.
-Despite amiodarone drip heart rates remain rapid in atrial fibrillation and patient is symptomatic. Will proceed with TARA/cardioversion
-He does have a history of amiodarone use in the remote past which required discontinuation for abnormal LFTs. We will need to follow closely
-He was recently switched from Coumadin to Eliquis on November 12, 2023 and started Eliquis November 14, 2023. Prior to this he did have interruption of his warfarin therapy for cardiac catheterization on October 22, 2023.
-Will discuss with the EP long-term antiarrhythmic therapy
-TSH 3.19
- LFTs with elevated AST 69-71 but normal ALT and alkaline phosphatase. AST previously normal at 34 on 10/20/2023 and likely related to hepatic congestion. Continue to trend
Acute on chronic HFrEF with borderline cardiac output and elevated SVR at time of cardiac catheterization 10/22/2023
-proBNP 9740
-Continue diuresis w/ IV Lasix
-Heart failure likely being exacerbated by Afib w/ RVR. Plan to restore sinus rhythm
-Continue goal-directed medical therapy including carvedilol 12.5 twice daily, Jardiance, and spironolactone. Patient has contraindications to use of DANN/ARB or ARNI given angioedema with DANN inhibitor requiring tracheostomy in remote past
-Patient is currently scheduled for STRIPING MACHINE OPERATOR�D implant with Dr. Abarca next month, 12/08/2023. Given heart rates remain poorly controlled in atrial fibrillation likely contributing to exacerbation of heart failure will proceed with TARA cardioversion
and reschedule STRIPING MACHINE OPERATOR�D implant for 4-5 weeks to prevent due to interruption of OAC.
Chest pain with abnormal cardiac troponin and mid RCA stenosis based on recent cardiac catheterization October 22, 2023
-Will review cath films with interventional cardiology
-Initial troponin 0.118, peaked 0.130. Patient is currently chest pain-free. Suspect troponin elevation secondary to nonischemic myocardial injury from heart failure and A-fib with rapid ventricular response
-Continue aspirin and medical therapy including plan to restore sinus rhythm
-Check lipid profile; Continue high dose Atorvastatin
Acute renal insufficiency in the setting of heart failure and rapid atrial fibrillation, likely low-flow
-Creatinine 1.4, improved to 1.3. baseline 0.9-1.2
-Monitor renal function with diuresis
Significant peripheral vascular disease including lower extremity PAD and carotid disease followed by Dr. Gallagher
-No active issue
-Continue aspirin and statin
Type 2 diabetes mellitus on insulin
-Last hemoglobin A1c in August 2023 with hemoglobin A1c 8.3% with hemoglobin A1c's dating back to 2017 also in the mid eights
-Discussed importance of improved glycemic control given significant cardiac and vascular disease
-Would benefit from outpatient endocrine appointment as well as a CGM
Bioprosthetic AVR normally functioning based on echocardiogram 10/14/2023
Progress Note - Drop Hammer Setter Up
Subjective
Date of Service: November 24, 2023
Patient seen and examined. Patient resting comfortably in bed. He reports he had a bad night with ongoing palpitation 'I felt like my heart was going to beat out of my chest.'. He denies chest pain and and feels shortness of breath has improved
Objective
Labs:
11/23/23 09:30
11/24/23 02:57
Labs
Hgb 14.3 g/dL (13.0-18.0) 11/23/23 09:30
Hct 41.8 % (39.0-52.0) 11/23/23 09:30
Plt Count 232 10^3/uL (130-400) 11/23/23 09:30
PT 22.2 Sec (11.4-14.6) H 11/23/23 09:31
INR 1.96 11/23/23 09:31
APTT 45.0 Sec (23.4-35.0) H 11/23/23 09:31
Sodium 134 mmol/L (135-145) L 11/24/23 02:57
Potassium 4.2 mmol/L (3.5-5.1) 11/24/23 02:57
BUN 34 mg/dl (9-20) H 11/24/23 02:57
Creatinine 1.3 mg/dL (0.7-1.3) 11/24/23 02:57
Glucose 204 mg/dl (70-99) H 11/24/23 02:57
Troponins
11/23/23 11/23/23 11/23/23
09:30 14:30 20:04
Troponin I 0.118 H* 0.130 H* 0.122 H*
11/24/23
02:57
Troponin I 0.118 H*
Vital Signs and I&O:
Vital Signs
Temp Pulse Resp BP Pulse Ox
95.3 F L 116 20 109/82 94
11/24/23 06:50 11/24/23 05:00 11/24/23 06:50 11/24/23 04:00 11/24/23 06:50
Vital Signs
Temp Pulse Resp BP Pulse Ox
95.3 F L 116 20 109/82 94
11/24/23 06:50 11/24/23 05:00 11/24/23 06:50 11/24/23 04:00 11/24/23 06:50
Intake & Output
11/22/23 11/23/23 11/24/23 11/25/23
06:59 06:59 06:59 06:59
Intake Total 1490 / 1490
Output Total 1450 / 1450
Balance 40 / 40
Physical Exam
Physical Exam
GEN: No distress, awake, Ox3 lying in bed
HEENT: supple, anicteric, mmm
LUNGS: CTA bilaterally, no wheezes/rales; on room air
CV: Irregularly irregular and rapid, S1/S2, 1/6 faint syst murmur
ABD: soft, BS+, NT/ND
EXT: No edema, clubbing or cyanosis
NEURO: Gross non-focal
SKIN: No rash, warm, dry, pink
[2023-11-24] MEDS: LASIX 80 MG IV ×2 (08:49→17:06)
[2023-11-24 08:50] LABS: Glycohemoglobin (HgbA1c) 6.9 % (4.0-5.6)
[2023-11-24] MEDS: COREG 12.5 MG PO ×2 (08:50→19:27)
[2023-11-24] MEDS: ELIQUIS 5 MG PO ×2 (08:50→19:27)
[2023-11-24] MEDS: VITAMIN B-12 1000 MCG PO (08:50)
[2023-11-24] MEDS: ALDACTONE 25 MG PO (08:50)
[2023-11-24] MEDS: THERAGRAN 1 TABLET PO (08:50)
[2023-11-24] MEDS: MAGNESIUM OXIDE 500 MG PO (08:52)
[2023-11-24] MEDS: JARDIANCE 12.5 MG PO (08:53)
[2023-11-24 09:41] LABS: HDL Cholesterol 19 mg/dl; LDL Cholesterol, Calculated 51 mg/dl; Total Cholesterol 92 mg/dl (50-199); Triglyceride 114 mg/dl (10-149); Very Low Density Lipoprotein 22 mg/dl (0-30)
[2023-11-24] MEDS: NOVOLOG FLEXPEN SC (10:35)
--- NOTE | 2023-11-24 10:40 | ITS.CL.CARDI ---
Shellac Polisher - Cardioversion
Cardioversion
Procedure Report:
Date of Procedure: November 24, 2023
Procedure: Cardioversion
Indication: Symptomatic atrial fibrillation
Performing Physician: Dwain Mitchell DO, FACC
Technique: The patient was brought to the holding area. Signed informed consent was obtained. A time out was called and performed. The patient was anesthetized by the anesthesia service. Anticoagulation status was reviewed and appropriate. R2 pads
were placed anteriorly and posteriorly. A 250 J synchronized biphasic shock restored normal sinus rhythm without significant bradycardia. There were no complications.
Conclusion: Uncomplicated cardioversion from atrial fibrillation to sinus rhythm.
Recommendation: Routine post cardioversion care. Continue prison anticoagulation.
[2023-11-24 12:02] LABS: Glucose - Point of Care 191 mg/dl (70-99)
--- NOTE | 2023-11-24 12:13 | CM ---
Chart reviewed. Patient was his cardioversion. I spoke with the , patient is independent of ADLS, lives with his in a split level home, 0 ALEXUS, 0 DME. Patient currently with no discharge needs. Plan is for the patient to return home.
CM to follow.
--- NOTE | 2023-11-24 12:15 | PTCARENOTE ---
Rec'd Pt post TARA/CV, A,A+Ox3, now in SR, VSS.
--- NOTE | 2023-11-24 12:19 | W.PN.HOSP.TC ---
Today's Communication/Plan
-
IV lasix
trend cr
cards recs
in NSR
Assessment / Plan
Assessment / Plan
paroxysmal atrial fibrillation with rapid ventricular response:
-s/p cardizem gtt and now on amiodarone.
-s/p TARA/CV on 11/23 and now in NSR
-was for AICD in a few weeks
-cardiology to see
-Cont eliquis
Acute on chronic HFrEF,
-proBNP 9740
-IV Lasix 40 BID
-daily wts, I/Os, FR
-was for AICD in a few weeks
-cardiology to see
-cont Eliquis/BB/Jardiance/aldactone
Elevated trop likely Non ishemic myocardial injury
-downtrended
-ischemic evla per cards
DM2:
-cont lantus/premeal novolog/SSI/accuchecks/diabetic diet
-a1c 6.9
-POC 219 am
Elevated Cr with CKD
likely cardiorenal syndrome, trend Cr with diuresis
trend cr for now
Other problems:
Essential hypertension: Cont BB/Aldactone
Hyperlipidemia: cont statin
Schizophrenia
CAD s/p PCI 2005, CABG x 1 with AVR 2016 (for )
PAD: cont ASA/statin
RLE femoral bypass with stents in 2020
L CEA 2005
Near complete, chronic occlusion of R ICA
LBBB
COPD
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
FULL/Eliquis
d/w with spouse at bedside in details.
Anticipated Discharge: > 48 hours
Subjective/Interval History
-
Date of Service: November 24, 2023
States feeling tired
Seen post cardioversion
Currently in normal sinus rhythm
Objective Data
-
Labs:
Laboratory Results
11/24/23
02:57
Sodium 134 L
Potassium 4.2
Chloride 104
Carbon Dioxide 22
BUN 34 H
Creatinine 1.3
Glucose 204 H
Calcium 8.8
Total Bilirubin 1.3
AST 71 H
ALT 41
Alkaline Phosphatase 122
Vital Signs:
Vital Signs
Temp Pulse Resp BP Pulse Ox
95.3 F L 133 20 123/87 94
11/24/23 06:50 11/24/23 09:00 11/24/23 06:50 11/24/23 06:52 11/24/23 08:03
I&O
11/23/23 11/24/23 11/25/23
06:59 06:59 06:59
Intake Total 1490 / 1490
Output Total 1450 / 1450
Balance 40 / 40
Physical Exam
-
General: No Apparent Distress
HEENT: Moist Mucous Membranes
Respiratory: Clear to Auscultation
Cardiac: Regular Rhythm and S1/S2
GI: Soft, Nontender and Nondistended
Neuro: Awake, AO x 3 and Nonfocal/Grossly Intact
Psych: Calm
Data Reviewed
-
Total Time Spent with Patient (in minutes): 56
[2023-11-24] MEDS: NOVOLOG FLEXPEN-HIGH RESISTANCE 2 UNITS SC (12:20)
[2023-11-24 17:03] LABS: Glucose - Point of Care 146 mg/dl (70-99)
[2023-11-24] MEDS: NOVOLOG FLEXPEN 5 UNITS SC (17:04)
[2023-11-24] MEDS: NOVOLOG FLEXPEN-HIGH RESISTANCE 1 UNITS SC (17:05)
[2023-11-24] MEDS: LIPITOR 80 MG PO (18:21)
[2023-11-24] MEDS: ASPIR LOW (ENTERIC COATED) 81 MG PO (18:21)
[2023-11-24] MEDS: KCL 10 MEQ PO (18:22)
--- NOTE | 2023-11-24 20:12 | PTCARENOTE ---
Assumed care at 1900. Patient reports feeling much better, NSR, denies shortness of breath. Fine crackles bilaterally at bases. Walking to the bathroom, gait is steady, call gonzalez in reach
[2023-11-24] MEDS: LANTUS 0.320000000000000007 UNITS SC (21:57)
[2023-11-24 21:59] LABS: Glucose - Point of Care 158 mg/dl (70-99)
[2023-11-25] VITALS (8 sets, daily range): BP systolic 97–127; BP diastolic 56–80; PULSE 65; O2SAT 95; BMI 29.8
[2023-11-25 06:02] LABS: Blood Urea Nitrogen 37 mg/dl (9-20); Calcium 8.8 mg/dl (8.4-10.2); Carbon Dioxide 29 mmol/L (22-30); Chloride 101 mmol/L (98-107); Estimated Creatinine Clearance 57 ml/min; Glucose 113 mg/dl (70-99); Potassium 3.7 mmol/L (3.5-5.1); Sodium 139 mmol/L (135-145); eGFR > 60.00
[2023-11-25 07:36] LABS: Glucose - Point of Care 111 mg/dl (70-99)
[2023-11-25] MEDS: THERAGRAN 1 TABLET PO (07:46)
[2023-11-25] MEDS: MAGNESIUM OXIDE 500 MG PO (07:46)
[2023-11-25] MEDS: ELIQUIS 5 MG PO ×2 (07:46→19:45)
[2023-11-25] MEDS: NOVOLOG FLEXPEN 5 UNITS SC ×2 (07:47→17:55)
[2023-11-25] MEDS: NOVOLOG FLEXPEN-HIGH RESISTANCE 1 UNITS SC (07:48)
[2023-11-25] MEDS: JARDIANCE 12.5 MG PO (07:51)
[2023-11-25] MEDS: COREG 12.5 MG PO ×2 (07:51→19:45)
[2023-11-25] MEDS: ALDACTONE 25 MG PO (07:52)
[2023-11-25] MEDS: VITAMIN B-12 1000 MCG PO (07:53)
[2023-11-25] MEDS: LASIX 80 MG IV ×2 (07:53→16:38)
--- NOTE | 2023-11-25 10:17 | W.PN.HOSP.TC ---
Today's Communication/Plan
-
?po diuretics
GDMT
Cont eliquis
Assessment / Plan
Assessment / Plan
paroxysmal atrial fibrillation with rapid ventricular response:
-s/p cardizem gtt and amiodarone. now on coreg 12.5mg BID.
-s/p TARA/CV on 11/23 and now in NSR
-was for FILLING CARRIER-D -which will be post poned for now.
-Cont eliquis
Acute on chronic HFrEF,
-proBNP 9740
-IV Lasix 80 BID -?po diuretics
-daily wts, I/Os, FR
-was for AICD in a few weeks
-cardiology to see
-losing weight.
-cont Eliquis/BB/Jardiance/aldactone
Elevated trop likely Non ischemic myocardial injury
-downtrended
-ischemic evla per cards
DM2:
-cont lantus/premeal novolog/SSI/accuchecks/diabetic diet
-a1c 6.9
-POC 111 am
Elevated Cr with CKD
likely cardiorenal syndrome, trend Cr with diuresis
trend cr for now
Other problems:
Essential hypertension: Cont BB/Aldactone
Hyperlipidemia: cont statin
Schizophrenia
CAD s/p PCI 2005, CABG x 1 with AVR 2016 (for )
PAD: cont ASA/statin
RLE femoral bypass with stents in 2020
L CEA 2005
Near complete, chronic occlusion of R ICA
LBBB
COPD
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
FULL/Eliquis
Anticipated Discharge: Within 24 hours
Subjective/Interval History
-
Date of Service: November 25, 2023
denies cp or sob.
Objective Data
-
Labs:
Laboratory Results
11/25/23
04:53
Sodium 139
Potassium 3.7
Chloride 101
Carbon Dioxide 29
BUN 37 H
Creatinine 1.2
Glucose 113 H
Calcium 8.8
Vital Signs:
Vital Signs
Temp Pulse Resp BP Pulse Ox
96 F L 59 16 105/69 97
11/25/23 07:47 11/25/23 09:00 11/25/23 07:47 11/25/23 07:54 11/25/23 07:47
I&O
11/24/23 11/25/23 11/26/23
06:59 06:59 06:59
Intake Total 1490 / 1490 240 / 240 360 / 360
Output Total 1450 / 1450 1775 / 1775
Balance 40 / 40 -1535 / -1535 360 / 360
Physical Exam
-
General: No Apparent Distress
HEENT: Moist Mucous Membranes
Respiratory: Clear to Auscultation
Cardiac: Regular Rhythm and S1/S2
GI: Soft, Nontender and Nondistended
Musculoskeletal: No Edema
Neuro: Awake, AO x 3 and Nonfocal/Grossly Intact
Psych: Calm
--- NOTE | 2023-11-25 10:41 | W.PN.CARDCBS ---
Addendum entered and electronically signed by Meghana Herrera MD 11/25/23 20:32:
I saw and examined the patient.
The Simulation Tech's note was reviewed and I agree with the note.
Comment: Overall doing well. SOb has improved. s/p DCCV yesterday in SR now.
Vitals reviewed. Labwork reviewed. ECG with QTc persistently prolonged in setting of LBBB. Amio on hold.
Exam with well appearing male in NAD, awake, alert, oriented x 3, + JVD, Lungs with bibasilar rales, RR, normal S1 and S2. no m/r/g, abd soft, NT, ND, + BS, no LE edema
Reccs:
1. Cont GDMT for underlying cardiomyopathy. Reschedule MANAGER LPN-D.
2. Amio on hold of now. Cont to monitor ECGs.
3. Cont IV diuresis with close monitoring of lytes, ins and outs and daily weights along with renal fxn.
Meghana Herrera MD
Original Note:
Today's Communication / Plan
-
continue IV lasix
hold amio, follow QTc
continue coreg, jardiance, spironolactone
will reschedule MANAGER LPN-D placement from 12/08/23 to 5-6 weeks from now as s/p TARA/CV 11/23
Impression / Plan
-
Certified Hearing Instrument Dispenser: Dr. Yoo
Lease Examiner: Dr. Abarca
Impression:
Presented 11/23/23 palpitations, SOB
Rapid atrial fibrillation s/p TARA/CV 11/24/23
Bradycardia/prolonged QTc post CV
History of paroxysmal atrial fibrillation, last episode postop in 2017
Left bundle branch block, chronic
Acute on chronic heart failure with reduced ejection fraction, decompensation likely driven by rapid atrial fibrillation, LV ejection fraction 10 to 15% on echocardiogram
Acute renal insufficiency likely secondary to cardiorenal syndrome
Chest pain with abnormal cardiac troponin
Coronary artery disease status post RCA PCI in 2006 and SVG to PDA in 2016 with recent cardiac catheterization noting significant mid RCA disease with RPDA filling through the widely patent SVG October 22, 2023
Bioprosthetic AVR 2016 for severe aortic stenosis
Hypertension
Hyperlipidemia
Left carotid CEA 2005
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 Gallagher
COPD
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
2D echocardiogram 10/14/2023: Normal LV size with severely reduced LV systolic function, EF estimated 10 to 15%. Apical akinesis. Mild LVH. Grade 3 diastolic dysfunction with increased filling pressures. Mild MR. #27 bovine aortic valve with
peak/mean gradient 9/5 mmHg with trace AI. No significant TR and unable to estimate right heart pressures.
Left heart catheterization 10/22/2023: Right dominant. Left main with mild diffuse atherosclerotic plaque. LAD with minimal luminal irregularities, circumflex with ostial 40% stenosis otherwise mild diffuse plaque. RCA with hazy high-grade 70 to
80% mid RCA in-stent restenosis. Right PDA failed with patent saphenous vein graft and competitive flow through the RCA. Diffuse 50 to 60% plaque in the proximal RCA
Right heart catheterization 10/22/2023:
RA (m) : 13
RV (s/d,m) : 36/11, 19
PA (s/d, m) : 33/21
PCWP (m) : 24
PA saturation: 66.9% on room air
AO saturation: 99.6% on room air
RA saturation: 66.2 per on room air
Cardiac Output : 4.2 L/min by William
Cardiac Index : 1.8 L/min/m-2 by William
Systemic vascular resistance: 2535 dsc^(-5)
Pulmonary vascular resistance: 2.14 torres unit
Heart rate: 64 bpm
Plan:
-Patient presented with symptomatic rapid atrial fibrillation. He was initially placed on IV Cardizem gtt., however transition to IV amiodarone. He underwent successful TARA/cardioversion 11/24/2023
-Remains in sinus rhythm on review of telemetry overnight, however noted to have prolonged QTc by 11/23 EKG as well as 11/24 EKG. Continue to hold amiodarone at this time. He also has a history of elevated LFTs on Amio in the past. Difficult case
as he has limited antiarrhythmic drug options. He states he has had ablation x2 in past however upon review of records, perhaps he was referring to CV as no history of ablation noted.
-Repeat EKG in a.m. If QTc improving, would consider for low-dose amiodarone 100 mg daily with close outpatient follow-up
-LFTs were mildly elevated on admission however suspected secondary to hepatic congestion as improved with diuresis
-Continue Eliquis 5 mg twice daily, recently transitioned from Coumadin 11/14/2023.
-will need to discuss candidacy for ablation as does not appear to be good AAD candidate.
-also presented in acute decompensated CHF. continue diuresis with IV lasix 80mg BID. was on po lasix 40mg BID prior to admission. weight trending down if accurate however remains with some wheezing on exam. consider transition to po in next 24-48
hours. Cr stable at 1.2
-he had called our office last week due to weakness and coreg was lowered from 12.5mg BID to 12.5mg daily. now back up to 12.5mg BID. will follow with bradycardia, may need to reduce dose to 6.25mg BID
-continue spironolactone
-had been on jardiance 25mg daily and dose was reduced to 12.5mg daily. he reports significant improvement in his sugars on jardiance. will leave dose as is at 12.5mg daily
-Patient has contraindications to use of DANN/ARB or ARNI given angioedema with DANN inhibitor requiring tracheostomy in remote past. could consider addition of hydralazine/nitrates
-EF newly 10-15% from 25% by echo 10/2023. he had been scheduled for MANAGER LPN-D implant 12/08/[address] Adame. given CV this admission, will need to reschedule for 5-6 weeks from now. will arrange with procedure scheduling.
-trop peaked at 0.13, suspected nonischemic myocardial injury in setting of CHF/afib. no present CP. recent cath with mid RCA stenosis with RPDA filling through patent vein graft. continue medical therapy with asa, statin, BB.
-Would benefit from outpatient endocrine appointment as well as a CGM
-d/w patient and at bedside
-d/w nursing. d/w hospitalist via TT
Progress Note - Certified Hearing Instrument Dispenser
Subjective
Date of Service: November 25, 2023
reports improvement in breathing. no CP, palpitations.
Objective
Labs:
11/23/23 09:30
11/25/23 04:53
Labs
Hgb 14.3 g/dL (13.0-18.0) 11/23/23 09:30
Hct 41.8 % (39.0-52.0) 11/23/23 09:30
Plt Count 232 10^3/uL (130-400) 11/23/23 09:30
PT 22.2 Sec (11.4-14.6) H 11/23/23 09:31
INR 1.96 11/23/23 09:31
APTT 45.0 Sec (23.4-35.0) H 11/23/23 09:31
Sodium 139 mmol/L (135-145) 11/25/23 04:53
Potassium 3.7 mmol/L (3.5-5.1) 11/25/23 04:53
BUN 37 mg/dl (9-20) H 11/25/23 04:53
Creatinine 1.2 mg/dL (0.7-1.3) 11/25/23 04:53
Glucose 113 mg/dl (70-99) H 11/25/23 04:53
Troponins
11/23/23 11/23/23 11/23/23
09:30 14:30 20:04
Troponin I 0.118 H* 0.130 H* 0.122 H*
11/24/23
02:57
Troponin I 0.118 H*
Vital Signs and I&O:
Vital Signs
Temp Pulse Resp BP Pulse Ox
96 F L 59 16 105/69 97
11/25/23 07:47 11/25/23 09:00 11/25/23 07:47 11/25/23 07:54 11/25/23 08:27
Vital Signs
Temp Pulse Resp BP Pulse Ox
96 F L 59 16 105/69 97
11/25/23 07:47 11/25/23 09:00 11/25/23 07:47 11/25/23 07:54 11/25/23 08:27
Intake & Output
11/23/23 11/24/23 11/25/23 11/26/23
07:59 07:59 07:59 07:59
Intake Total 1490 / 1490 240 / 240 360 / 360
Output Total 1450 / 1450 1775 / 1775
Balance 40 / 40 -1535 / -1535 360 / 360
Physical Exam
Physical Exam
GEN: No distress, awake, alert, oriented x3. sitting in chair
HEENT: supple, anicteric, mmm, eomi
LUNGS: mild exp wheezes B/L
CV: Reg and eugene, S1/S2, 1/6 syst LSB
ABD: soft, BS+, NT/ND
EXT: No cyanosis, clubbing. Trace edema of B/L LE
NEURO: Gross non-focal
SKIN: Warm, pink, dry. No rash
[2023-11-25 11:32] LABS: Glucose - Point of Care 185 mg/dl (70-99)
[2023-11-25] MEDS: NOVOLOG FLEXPEN-HIGH RESISTANCE 2 UNITS SC ×2 (11:42→17:55)
--- NOTE | 2023-11-25 13:45 | CM ---
Chart reviewed. Patient is independent of ADLS, lives with his in a split level, 0 ALEXUS, 0 DME. Patient currently with no discharge needs. CM to follow
[2023-11-25 16:49] LABS: Magnesium 2.2 mg/dl (1.6-2.3)
[2023-11-25 17:19] LABS: Glucose - Point of Care 154 mg/dl (70-99)
[2023-11-25] MEDS: ASPIR LOW (ENTERIC COATED) 81 MG PO (17:54)
[2023-11-25] MEDS: LIPITOR 80 MG PO (17:54)
[2023-11-25] MEDS: KCL 10 MEQ PO (17:54)
--- NOTE | 2023-11-25 20:50 | PTCARENOTE ---
Assumed care. Patient comfortable, remains NSR with PVC's, prolonged QT. Walking in room independently, call gonzalez in reach
[2023-11-25 21:33] LABS: Glucose - Point of Care 117 mg/dl (70-99)
[2023-11-25] MEDS: LANTUS 0.320000000000000007 UNITS SC (21:35)
--- NOTE | 2023-11-26 01:20 | PTCARENOTE ---
Patient sleeping 14 beats of wide complex tachycardia. Strip placed in chart
[2023-11-26 03:00] VITALS: BMI 29.7
[2023-11-26 03:27] VITALS: BP 105/67
[2023-11-26 04:54] LABS: Blood Urea Nitrogen 39 mg/dl (9-20); Calcium 8.8 mg/dl (8.4-10.2); Carbon Dioxide 29 mmol/L (22-30); Chloride 103 mmol/L (98-107); Estimated Creatinine Clearance 63 ml/min; Glucose 119 mg/dl (70-99); Magnesium 2.3 mg/dl (1.6-2.3); Potassium 3.4 mmol/L (3.5-5.1); Sodium 140 mmol/L (135-145); eGFR > 60.00
[2023-11-26 06:37] LABS: Glucose - Point of Care 113 mg/dl (70-99)
[2023-11-26 06:38] VITALS: BP 129/75
[2023-11-26] MEDS: THERAGRAN 1 TABLET PO (07:35)
[2023-11-26] MEDS: COREG 12.5 MG PO (07:35)
[2023-11-26] MEDS: ELIQUIS 5 MG PO ×2 (07:35→19:28)
[2023-11-26] MEDS: VITAMIN B-12 1000 MCG PO (07:35)
[2023-11-26] MEDS: MAGNESIUM OXIDE 500 MG PO (07:35)
[2023-11-26] MEDS: ALDACTONE 25 MG PO (07:35)
[2023-11-26] MEDS: JARDIANCE 12.5 MG PO (07:36)
[2023-11-26] MEDS: NOVOLOG FLEXPEN 5 UNITS SC ×2 (07:41→17:31)
[2023-11-26] MEDS: NOVOLOG FLEXPEN-HIGH RESISTANCE 1 UNITS SC (07:41)
[2023-11-26] MEDS: KCL 40 MEQ PO (08:24)
[2023-11-26] MEDS: LASIX 80 MG IV ×2 (08:28→17:21)
--- NOTE | 2023-11-26 10:13 | W.PN.HOSP.TC ---
Today's Communication/Plan
-
monitor Qtc
cards recs
diuretics
trend cr
repelte kcl
Assessment / Plan
Assessment / Plan
paroxysmal atrial fibrillation with rapid ventricular response:
-s/p cardizem gtt and amiodarone. now on coreg 12.5mg BID.
-s/p TARA/CV on 11/23 and now in NSR
-was for BARKING MACHINE FEEDER-D -which will be post poned for now.
-Cont eliquis
Prolonged QTc s/p amiodarone and propofol
-EKG with prolonged QTc of 639
-off amiodarone
-replete lytes
-on coreg
cards recs
Hypokalemia-replete
Acute on chronic HFrEF,
-proBNP 9740
-IV Lasix 80 BID
-daily wts, I/Os, FR
-was for AICD in a few weeks
-cardiology to see
-losing weight.
-cont Eliquis/BB/Jardiance/aldactone
Elevated trop likely Non ischemic myocardial injury
-downtrended
-ischemic evla per cards
DM2:
-cont lantus/premeal novolog/SSI/accuchecks/diabetic diet
-a1c 6.9
-POC 113 am
Elevated Cr with CKD
likely cardiorenal syndrome, trend Cr with diuresis
trend cr for now
Other problems:
Essential hypertension: Cont BB/Aldactone
Hyperlipidemia: cont statin
Schizophrenia
CAD s/p PCI 2005, CABG x 1 with AVR 2016 (for )
PAD: cont ASA/statin
RLE femoral bypass with stents in 2020
L CEA 2005
Near complete, chronic occlusion of R ICA
LBBB
COPD
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
FULL/Eliquis
Anticipated Discharge: Within 24 hours
Subjective/Interval History
-
Date of Service: November 26, 2023
states feeling better
Objective Data
-
Labs:
Laboratory Results
11/26/23
03:40
Sodium 140
Potassium 3.4 L
Chloride 103
Carbon Dioxide 29
BUN 39 H
Creatinine 1.1
Glucose 119 H
Calcium 8.8
Vital Signs:
Vital Signs
Temp Pulse Resp BP Pulse Ox
97.2 F 63 16 129/75 95
11/26/23 06:40 11/26/23 08:00 11/26/23 06:40 11/26/23 06:38 11/26/23 07:49
I&O
11/25/23 11/26/23 11/27/23
06:59 06:59 06:59
Intake Total 240 / 240 840 / 840 360 / 360
Output Total 1775 / 1775
Balance -1535 / -1535 840 / 840 360 / 360
Physical Exam
-
General: No Apparent Distress
HEENT: Normocephalic, Atraumatic and Moist Mucous Membranes
Respiratory: Clear to Auscultation
Cardiac: Regular Rhythm and S1/S2
GI: Soft, Nontender, Nondistended and Normal Bowel Sounds
Musculoskeletal: No Edema
Neuro: Awake, Alert, AO x 3 and Nonfocal/Grossly Intact
Psych: Calm
--- NOTE | 2023-11-26 11:09 | PTCARENOTE ---
Pt noted to have 2:1 heart block at 0857.
--- NOTE | 2023-11-26 11:22 | W.PN.CARDCBS ---
Addendum entered and electronically signed by Meghana Herrera MD 11/26/23 14:39:
I saw and examined the patient.
The Gas Generator Operator's note was reviewed and I agree with the note.
Comment: Overall doing well. Still with some SOB. s/p DCCV 11/24/23, in SR now.
Vitals reviewed. Lab work reviewed. ECG with persistent QTc prolongation in setting of LBBB. Amio has been on hold.
Exam with well appearing male in NAD, awake, alert, oriented x 3, + JVD, Lungs with bibasilar rales, RR, normal S1 and S2. no m/r/g, abd soft, NT, ND, + BS, no LE edema.
Telemetry with blocked APD's in a bigeminal pattern.
Reccs:
1. Cont GDMT for underlying cardiomyopathy. Reschedule COUNTRY MANAGER-D, ideally for at least 3 weeks post DCCV to avoid AC interruption.
2. Continue to hold amiodarone and monitoring a QTc on EKG.
3. Cont IV diuresis with close monitoring of lytes, ins and outs and daily weights along with renal fxn. Goal potassium more than 4, magnesium more than 2.
4. Given patient is status post recent cardioversion, continue uninterrupted anticoagulation with Eliquis.
5. Encourage incentive spirometry, out of bed into chair and ambulation.
Meghana Herrera MD, [facility]
Original Note:
Today's Communication / Plan
-
follow on tele
follow QTc
holding amio
reduce coreg to 6.25mg BID
continue eliquis
device in 3-4 weeks
Impression / Plan
-
Installation Supervisor: Dr. Yoo
Syrup Filterer: Dr. Abarca
Impression:
Presented 11/23/23 palpitations, SOB
Rapid atrial fibrillation s/p TARA/CV 11/24/23
Bradycardia/prolonged QTc post CV
History of paroxysmal atrial fibrillation, last episode postop in 2017
Left bundle branch block, chronic
Acute on chronic heart failure with reduced ejection fraction, decompensation likely driven by rapid atrial fibrillation, LV ejection fraction 10 to 15% on echocardiogram
Acute renal insufficiency likely secondary to cardiorenal syndrome
Chest pain with abnormal cardiac troponin
Coronary artery disease status post RCA PCI in 2005 and SVG to PDA in 2017 with recent cardiac catheterization noting significant mid RCA disease with RPDA filling through the widely patent SVG October 22, 2023
Bioprosthetic AVR 2017 for severe aortic stenosis
Hypertension
Hyperlipidemia
Left carotid CEA 2005
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 Gallagher
COPD
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
2D echocardiogram 10/14/2023: Normal LV size with severely reduced LV systolic function, EF estimated 10 to 15%. Apical akinesis. Mild LVH. Grade 3 diastolic dysfunction with increased filling pressures. Mild MR. #27 bovine aortic valve with
peak/mean gradient 9/5 mmHg with trace AI. No significant TR and unable to estimate right heart pressures.
Left heart catheterization 10/22/2023: Right dominant. Left main with mild diffuse atherosclerotic plaque. LAD with minimal luminal irregularities, circumflex with ostial 40% stenosis otherwise mild diffuse plaque. RCA with hazy high-grade 70 to
80% mid RCA in-stent restenosis. Right PDA failed with patent saphenous vein graft and competitive flow through the RCA. Diffuse 50 to 60% plaque in the proximal RCA
Right heart catheterization 10/22/2023:
RA (m) : 13
RV (s/d,m) : 36/11, 19
PA (s/d, m) : 33/21
PCWP (m) : 24
PA saturation: 66.9% on room air
AO saturation: 99.6% on room air
RA saturation: 66.2 per on room air
Cardiac Output : 4.2 L/min by William
Cardiac Index : 1.8 L/min/m-2 by William
Systemic vascular resistance: 2535 dsc^(-5)
Pulmonary vascular resistance: 2.14 torres unit
Heart rate: 64 bpm
Plan:
-Patient presented with symptomatic rapid atrial fibrillation. He was initially placed on IV Cardizem gtt., however transitioned to IV amiodarone. He underwent successful TARA/cardioversion 11/24/2023
-Remains in sinus rhythm on review of telemetry overnight, however noted to have prolonged QTc by 11/23 EKG as well as 11/24 EKG. Continue to hold amiodarone at this time. He also has a history of elevated LFTs on Amio in the past. Difficult case
as he has limited antiarrhythmic drug options. He states he has had ablation x2 in past however upon review of records, perhaps he was referring to CV as no history of ablation noted.
-QTc remains prolonged. he has chronic LBBB. repeat EKG in AM. amio remains on hold at this time
-initially concern for episode of 2:1 av block on tele this morning however upon review with EP felt more consistent with nonconducted atrial bigeminy. will lower coreg dose to 6.25mg BID and follow
-with PVCs and up to 4 beat runs of NSVT. replete K. mag stable
-Continue Eliquis 5 mg twice daily, recently transitioned from Coumadin 11/14/2023.
-will need to discuss candidacy for ablation as does not appear to be good AAD candidate.
-also presented in acute decompensated CHF. continue diuresis with IV lasix 80mg BID. was on po lasix 40mg BID prior to admission. weight trending down if accurate. consider transition to po in next 24-48 hours. Cr stable at 1.1
-continue spironolactone
-had been on jardiance 25mg daily and dose was reduced to 12.5mg daily. he reports significant improvement in his sugars on jardiance. will leave dose as is at 12.5mg daily
-Patient has contraindications to use of DANN/ARB or ARNI given angioedema with DANN inhibitor requiring tracheostomy in remote past. could consider addition of hydralazine/nitrates, currently relative hypotension limiting
-EF newly 10-15% from 25% by echo 10/2023. he had been scheduled for COUNTRY MANAGER-D implant 12/08/[address] Adame. given CV this admission, will need to reschedule for at least 3 weeks from now. will arrange with procedure scheduling.
-trop peaked at 0.13, suspected nonischemic myocardial injury in setting of CHF/afib. no present CP. recent cath with mid RCA stenosis with RPDA filling through patent vein graft. continue medical therapy with asa, statin, BB.
-Would benefit from outpatient endocrine appointment as well as a CGM
-d/w nursing.
Progress Note - Installation Supervisor
Subjective
Date of Service: November 26, 2023
denies CP, SOB, lightheadedness
Objective
Labs:
11/23/23 09:30
11/26/23 03:40
Labs
Hgb 14.3 g/dL (13.0-18.0) 11/23/23 09:30
Hct 41.8 % (39.0-52.0) 11/23/23 09:30
Plt Count 232 10^3/uL (130-400) 11/23/23 09:30
PT 22.2 Sec (11.4-14.6) H 11/23/23 09:31
INR 1.96 11/23/23 09:31
APTT 45.0 Sec (23.4-35.0) H 11/23/23 09:31
Sodium 140 mmol/L (135-145) 11/26/23 03:40
Potassium 3.4 mmol/L (3.5-5.1) L 11/26/23 03:40
BUN 39 mg/dl (9-20) H 11/26/23 03:40
Creatinine 1.1 mg/dL (0.7-1.3) 11/26/23 03:40
Glucose 119 mg/dl (70-99) H 11/26/23 03:40
Troponins
11/23/23 11/23/23 11/24/23
14:30 20:04 02:57
Troponin I 0.130 H* 0.122 H* 0.118 H*
Vital Signs and I&O:
Vital Signs
Temp Pulse Resp BP Pulse Ox
97.2 F 60 16 129/75 95
11/26/23 06:40 11/26/23 10:00 11/26/23 06:40 11/26/23 06:38 11/26/23 07:49
Vital Signs
Temp Pulse Resp BP Pulse Ox
97.2 F 60 16 129/75 95
11/26/23 06:40 11/26/23 10:00 11/26/23 06:40 11/26/23 06:38 11/26/23 07:49
Intake & Output
11/24/23 11/25/23 11/26/23 11/27/23
07:59 07:59 07:59 07:59
Intake Total 1490 / 1490 240 / 240 840 / 840 360 / 360
Output Total 1450 / 1450 1775 / 1775
Balance 40 / 40 -1535 / -1535 840 / 840 360 / 360
Physical Exam
Physical Exam
GEN: No distress, awake, alert, oriented x3. sitting in chair
HEENT: supple, anicteric, mmm, eomi
LUNGS: few crackles B/L bases, no wheezing
CV: Reg and eugene, S1/S2, 1/6 syst LSB
ABD: soft, BS+, NT/ND
EXT: No cyanosis, clubbing. Trace edema of B/L LE
NEURO: Gross non-focal
SKIN: Warm, pink, dry. No rash
[2023-11-26 11:26] VITALS: BP 110/77
[2023-11-26 11:29] LABS: Glucose - Point of Care 183 mg/dl (70-99)
[2023-11-26] MEDS: NOVOLOG FLEXPEN-HIGH RESISTANCE 2 UNITS SC ×2 (11:30→17:31)
--- NOTE | 2023-11-26 11:45 | CM ---
Chart reviewed. Patient and at bedside. Patient is independent of ADLS, lives with his in a split level, 0 ALEXUS, 0 DME. Plan is for the patient to return home. CM to follow
[2023-11-26 15:12] VITALS: BP 108/75
[2023-11-26 16:49] LABS: Glucose - Point of Care 167 mg/dl (70-99)
[2023-11-26] MEDS: ASPIR LOW (ENTERIC COATED) 81 MG PO (17:22)
[2023-11-26] MEDS: LIPITOR 80 MG PO (17:22)
[2023-11-26] MEDS: KCL 10 MEQ PO (17:22)
[2023-11-26] MEDS: FLUSH (NSS) 2 FLUSH IV (17:22)
[2023-11-26 18:50] VITALS: BP 114/70
[2023-11-26] MEDS: COREG 6.25 MG PO (19:28)
[2023-11-26 21:54] LABS: Glucose - Point of Care 149 mg/dl (70-99)
[2023-11-26] MEDS: LANTUS 0.320000000000000007 UNITS SC (21:56)
[2023-11-26 22:01] VITALS: BP 121/79
[2023-11-26] MEDS: SENOKOT-S 1 TABLET PO (22:22)
--- NOTE | 2023-11-26 22:48 | PTCARENOTE ---
VSS; NSR with prolonged QT/BBC/PVC's on the monitor. No complaints pain, pt. independent and ambulatory. States he hasn't had a BM since pre-admission, covering hospitalist NICHOLE notified, Senna S ordered and given. Pt. currently sleeping.
[2023-11-27 03:27] VITALS: BP 140/82
[2023-11-27 03:52] VITALS: BMI 29.1
[2023-11-27 04:49] LABS: Blood Urea Nitrogen 35 mg/dl (9-20); Calcium 9.6 mg/dl (8.4-10.2); Carbon Dioxide 32 mmol/L (22-30); Chloride 101 mmol/L (98-107); Estimated Creatinine Clearance 53 ml/min; Glucose 146 mg/dl (70-99); Potassium 4.5 mmol/L (3.5-5.1); Sodium 141 mmol/L (135-145); eGFR 56.93
[2023-11-27 06:57] VITALS: BP 116/78
[2023-11-27 07:03] LABS: Glucose - Point of Care 141 mg/dl (70-99)
--- NOTE | 2023-11-27 07:38 | W.PN.CARDCBS ---
Addendum entered and electronically signed by Allie Veloz DO 11/27/23 12:50:
I saw and examined the patient.
The General Manager In Training's note was reviewed and I agree with the note.
Comment: Seen and examined. Patient ambulating around room and feels better than admission. No chest pain or pressure. Shortness of breath has improved. No palpitations.
GEN: NAD
HEENT: mmm
LUNGS: CTA B/L, no wheezing
CV: Reg, S1/S2, 08/09 syst LSB
ABD: soft, BS+, NT/ND
EXT: No edema
NEURO: Gross non-focal
Plan:
Patient presents with symptomatic rapid atrial fibrillation and decompensated chronic heart failure with reduced ejection fraction
-Status post TARA cardioversion 11/24/2023 now in sinus rhythm
-amiodarone was stopped post CV due to bradycardia and prolonged QTc. he has chronic LBBB. by EKG 11/26, QTc is improving but remains prolonged. amiodarone remains on hold. ideally would start on low dose. would consider for repeat EKG on Thursday 11/30
and if with continued QTc improvement, would plan to initiate 100mg daily
- Difficult case as he has limited antiarrhythmic drug options. will follow as OP
-coreg dose was lowered to 6.25mg BID with improvement. no further episodes of nonconducted atrial bigeminy on review of tele overnight, does have PVCs and up to 4 beats of NSVT.
-Continue Eliquis 5 mg twice daily, recently transitioned from Coumadin 11/14/2023.
-will need to discuss candidacy for ablation as does not appear to be good AAD candidate.
Acute on chronic HFrEF with borderline cardiac output and elevated SVR at time of cardiac catheterization 10/22/2023
-proBNP 9740
-Volume status improved with IV Lasix and episcopal of sinus rhythm.
-Increase oral Lasix to 60 mg twice daily and reassess next week
-Continue goal-directed medical therapy including carvedilol 12.5 mg which will be increased to twice daily, Jardiance, and spironolactone. Patient has contraindications to use of DANN/ARB or ARNI given angioedema with DANN inhibitor requiring
tracheostomy in remote past
-Patient is currently scheduled for EQUIPMENT SPECIALIST�D implant with Dr. Abarca in 3 weeks post cardioversion; would repeat right heart catheterization at the time of device implant
Chest pain with abnormal cardiac troponin and mid RCA stenosis based on recent cardiac catheterization October 22, 2023
-Will review cath films with interventional cardiology
-Initial troponin 0.118, second troponin 0.130. Trend to peak
-Patient is currently chest pain-free
-Continue aspirin and medical therapy including plan to restore sinus rhythm
-Check lipid profile
-Trend cardiac troponin
Acute renal insufficiency in the setting of heart failure and rapid atrial fibrillation, likely low-flow
-Creatinine 1.4, baseline 0.9-1.2
-Monitor renal function with diuresis
Significant peripheral vascular disease including lower extremity PAD and carotid disease followed by Dr. Gallagher
-No active issue
-Continue aspirin and statin
Type 2 diabetes mellitus on insulin
-Last hemoglobin A1c in August 2023 with hemoglobin A1c 8.3% with hemoglobin A1c's dating back to 2017 also in the mid eights
-Discussed importance of improved glycemic control given significant cardiac and vascular disease
-Would benefit from outpatient endocrine appointment as well as a CGM
Bioprosthetic AVR normally functioning based on echocardiogram 10/14/2023
Outpatient cardiac follow-up to be arranged
Stable from a cardiovascular standpoint for discharge
Original Note:
Today's Communication / Plan
-
po lasix 60mg BID
continue to hold amiodarone. QTc improving
would plan for EKG in office Thursday 11/30 and if QTc improved, would initiate amiodarone 100mg daily
continue eliquis
continue spironolactone, jardiance
CMP in 1 week
ICD in 3 weeks post CV
OP cardiac follow up arranged
Impression / Plan
-
Health Underwriter: Dr. Yoo
Chemical Applicator: Dr. Abarca
Impression:
Presented 11/23/23 palpitations, SOB
Rapid atrial fibrillation s/p TARA/CV 11/24/23
Bradycardia/prolonged QTc post CV
History of paroxysmal atrial fibrillation, last episode postop in 2017
Left bundle branch block, chronic
Acute on chronic heart failure with reduced ejection fraction, decompensation likely driven by rapid atrial fibrillation, LV ejection fraction 10 to 15% on echocardiogram
Acute renal insufficiency likely secondary to cardiorenal syndrome
Chest pain with abnormal cardiac troponin
Coronary artery disease status post RCA PCI in 2005 and SVG to PDA in 2016 with recent cardiac catheterization noting significant mid RCA disease with RPDA filling through the widely patent SVG October 22, 2023
Bioprosthetic AVR 2017 for severe aortic stenosis
Hypertension
Hyperlipidemia
Left carotid CEA 2005
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 Gallagher
COPD
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
2D echocardiogram 10/14/2023: Normal LV size with severely reduced LV systolic function, EF estimated 10 to 15%. Apical akinesis. Mild LVH. Grade 3 diastolic dysfunction with increased filling pressures. Mild MR. #27 bovine aortic valve with
peak/mean gradient 9/5 mmHg with trace AI. No significant TR and unable to estimate right heart pressures.
Left heart catheterization 10/22/2023: Right dominant. Left main with mild diffuse atherosclerotic plaque. LAD with minimal luminal irregularities, circumflex with ostial 40% stenosis otherwise mild diffuse plaque. RCA with hazy high-grade 70 to
80% mid RCA in-stent restenosis. Right PDA failed with patent saphenous vein graft and competitive flow through the RCA. Diffuse 50 to 60% plaque in the proximal RCA
Right heart catheterization 10/22/2023:
RA (m) : 13
RV (s/d,m) : 36/11, 19
PA (s/d, m) : 33/21
PCWP (m) : 24
PA saturation: 66.9% on room air
AO saturation: 99.6% on room air
RA saturation: 66.2 per on room air
Cardiac Output : 4.2 L/min by William
Cardiac Index : 1.8 L/min/m-2 by William
Systemic vascular resistance: 2535 dsc^(-5)
Pulmonary vascular resistance: 2.14 torres unit
Heart rate: 64 bpm
Plan:
-Patient presented with symptomatic rapid atrial fibrillation. He was initially placed on IV Cardizem gtt, then transitioned to IV amiodarone. He underwent successful TARA/cardioversion 11/24/2023
-amiodarone was stopped post CV due to bradycardia and prolonged QTc. he has chronic LBBB. by EKG 11/26, QTc is improving but remains prolonged. amiodarone remains on hold. ideally would start on low dose. would consider for repeat EKG on Thursday 11/30
and if with continued QTc improvement, would plan to initiate 100mg daily
-He also has a history of elevated LFTs on Amio in the past. Difficult case as he has limited antiarrhythmic drug options. will follow as OP
-coreg dose was lowered to 6.25mg BID with improvement. no further episodes of nonconducted atrial bigeminy on review of tele overnight, does have PVCs and up to 4 beats of NSVT.
-Continue Eliquis 5 mg twice daily, recently transitioned from Coumadin 11/14/2023.
-will need to discuss candidacy for ablation as does not appear to be good AAD candidate.
-Cr up trending. will transition to po lasix 60mg BID. prior to admission was on 40mg BID, and here was receiving 80mg IV BID.
-continue spironolactone
-had been on jardiance 25mg daily and dose was reduced to 12.5mg daily. he reports significant improvement in his sugars on jardiance. will leave dose as is at 12.5mg daily
-Patient has contraindications to use of DANN/ARB or ARNI given angioedema with DANN inhibitor requiring tracheostomy in remote past. could consider addition of hydralazine/nitrates, currently relative hypotension limiting
-EF newly 10-15% from 25% by echo 10/2023. he had been scheduled for EQUIPMENT SPECIALIST-D implant 12/08/[address] Adame. given CV this admission, will need to reschedule for at least 3 weeks from now. will arrange with procedure scheduling.
-trop peaked at 0.13, suspected nonischemic myocardial injury in setting of CHF/afib. no present CP. recent cath with mid RCA stenosis with RPDA filling through patent vein graft. continue medical therapy with asa, statin, BB.
-Would benefit from outpatient endocrine appointment as well as a CGM
-will arrange OP cardiac follow up
-d/w nursing.
Progress Note - Health Underwriter
Subjective
Date of Service: November 27, 2023
feeling well. no CP, SOB, palpitations
Objective
Labs:
11/23/23 09:30
11/27/23 03:48
Labs
Hgb 14.3 g/dL (13.0-18.0) 11/23/23 09:30
Hct 41.8 % (39.0-52.0) 11/23/23 09:30
Plt Count 232 10^3/uL (130-400) 11/23/23 09:30
PT 22.2 Sec (11.4-14.6) H 11/23/23 09:31
INR 1.96 11/23/23 09:31
APTT 45.0 Sec (23.4-35.0) H 11/23/23 09:31
Sodium 141 mmol/L (135-145) 11/27/23 03:48
Potassium 4.5 mmol/L (3.5-5.1) D 11/27/23 03:48
BUN 35 mg/dl (9-20) H 11/27/23 03:48
Creatinine 1.3 mg/dL (0.7-1.3) 11/27/23 03:48
Glucose 146 mg/dl (70-99) H 11/27/23 03:48
Vital Signs and I&O:
Vital Signs
Temp Pulse Resp BP Pulse Ox
94.3 F L 62 20 140/82 95
11/27/23 06:53 11/27/23 04:00 11/27/23 06:53 11/27/23 03:27 11/27/23 06:53
Vital Signs
Temp Pulse Resp BP Pulse Ox
94.3 F L 62 20 140/82 95
11/27/23 06:53 11/27/23 04:00 11/27/23 06:53 11/27/23 03:27 11/27/23 06:53
Intake & Output
11/24/23 11/25/23 11/26/23 11/27/23
07:59 07:59 07:59 07:59
Intake Total 1490 / 1490 240 / 240 840 / 840 600 / 600
Output Total 1450 / 1450 1775 / 1775
Balance 40 / 40 -1535 / -1535 840 / 840 600 / 600
Physical Exam
Physical Exam
GEN: No distress, awake, alert, oriented x3. sitting in chair
HEENT: supple, anicteric, mmm, eomi
LUNGS: CTA B/L, no wheezing
CV: Reg, S1/S2, 1/6 syst LSB
ABD: soft, BS+, NT/ND
EXT: No cyanosis, clubbing, edema
NEURO: Gross non-focal
SKIN: Warm, pink, dry. No rash
[2023-11-27] MEDS: ALDACTONE 25 MG PO (08:19)
[2023-11-27] MEDS: MAGNESIUM OXIDE 500 MG PO (08:19)
[2023-11-27] MEDS: VITAMIN B-12 1000 MCG PO (08:19)
[2023-11-27] MEDS: ELIQUIS 5 MG PO (08:19)
[2023-11-27] MEDS: COREG 6.25 MG PO (08:20)
[2023-11-27] MEDS: JARDIANCE 12.5 MG PO (08:20)
[2023-11-27] MEDS: THERAGRAN 1 TABLET PO (08:20)
[2023-11-27] MEDS: NOVOLOG FLEXPEN 5 UNITS SC (08:23)
[2023-11-27] MEDS: NOVOLOG FLEXPEN-HIGH RESISTANCE 1 UNITS SC (08:24)
[2023-11-27] MEDS: LASIX 60 MG PO (09:28)
--- NOTE | 2023-11-27 10:54 | W.PN.HOSP.TC ---
Today's Communication/Plan
-
dc home
lasix 60mg bid
coreg dose decrease
op cards f/u
Assessment / Plan
Assessment / Plan
paroxysmal atrial fibrillation with rapid ventricular response:
-s/p cardizem gtt and amiodarone. Coreg dose decreased to 6.25mg BID
-s/p TARA/CV on 11/23 and now in NSR
-was for CORRECTIONAL THERAPY DIRECTOR-D -which will be post poned for now.
-Cont eliquis
Prolonged QTc s/p amiodarone and propofol
-EKG with prolonged QTc of 584-improved.
-off amiodarone
-replete lytes
-on coreg
-Plan to f/u next week with cards.
cards recs
Hypokalemia-replete
Acute on chronic HFrEF,
-proBNP 9740
-IV Lasix 80 BID and now new regimen 60mg BID (COMPANY ACCOUNTANT was 40mg BID)
-daily wts, I/Os, FR
-was for AICD in a few weeks
-cardiology to see
-losing weight.
-cont Eliquis/BB/Jardiance/aldactone
Elevated trop likely Non ischemic myocardial injury
-downtrended
-ischemic eval per cards
DM2:
-cont lantus/premeal novolog/SSI/accuchecks/diabetic diet
-a1c 6.9
-POC 141 am
Elevated Cr with CKD
likely cardiorenal syndrome, trend Cr with diuresis
trend cr for now
Other problems:
Essential hypertension: Cont BB/Aldactone
Hyperlipidemia: cont statin
Schizophrenia
CAD s/p PCI 2005, CABG x 1 with AVR 2016 (for )
PAD: cont ASA/statin
RLE femoral bypass with stents in 2020
L CEA 2005
Near complete, chronic occlusion of R ICA
LBBB
COPD
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
FULL/Eliquis
More than 30 minutes spent in discharge including
Final examination of the patient
Summarizing hospital stay
Instructions for continuing care to all relevant caregivers
Preparation of discharge records, prescriptions, and referral forms
Total time spent (in minutes): 45
Anticipated Discharge: Today
Subjective/Interval History
-
Date of Service: November 27, 2023
feeling better.
lost weight
Objective Data
-
Labs:
Laboratory Results
11/27/23
03:48
Sodium 141
Potassium 4.5 D
Chloride 101
Carbon Dioxide 32 H
BUN 35 H
Creatinine 1.3
Glucose 146 H
Calcium 9.6
Vital Signs:
Vital Signs
Temp Pulse Resp BP Pulse Ox
94.3 F L 65 20 116/78 95
11/27/23 06:53 11/27/23 09:00 11/27/23 06:53 11/27/23 06:57 11/27/23 08:37
I&O
11/26/23 11/27/23 11/28/23
06:59 06:59 06:59
Intake Total 840 / 840 600 / 600
Balance 840 / 840 600 / 600
Physical Exam
-
General: No Apparent Distress
HEENT: Normocephalic, Atraumatic and Moist Mucous Membranes
Respiratory: Clear to Auscultation
Cardiac: Regular Rhythm and S1/S2
GI: Soft, Nontender, Nondistended and Normal Bowel Sounds
Musculoskeletal: No Edema
Neuro: Awake, Alert, AO x 3 and Nonfocal/Grossly Intact
Psych: Calm
--- NOTE | 2023-11-27 11:12 | CM ---
Chart reviewed. Patient is independent of ADLS, lives in a split level home, 0 ALEXUS, 0 DME. Patient currently with no discharge needs. Plan is for the patient to return home. CM to follow
[2023-11-27 11:34] VITALS: BP 109/76
[2023-11-27 11:34] LABS: Glucose - Point of Care 181 mg/dl (70-99)
[2023-11-27] MEDS: NOVOLOG FLEXPEN-HIGH RESISTANCE 2 UNITS SC (12:12)
--- NOTE | 2023-11-27 13:03 | W.DCSUMMARY ---
Discharge Summary
Discharge Data
Date of Admission: 11/23/23
Date of Discharge: 11/27/23
-
Pending Results: No
Hospital Course
78 yo M past medical history of chronic HFrEF, atrial fibrillation, diabetes mellitus, CKD, hypertension, hyperlipidemia, schizophrenia, CAD, PAD status post extremity bypass, left CEA, COPD who was presented with shortness of breath. Patient was
found atrial fibrillation with rapid ventricular response. Patient on Cardizem drip and heart rate was persistently elevated. Patient with TARA cardioversion. Postprocedure patient was sinus rhythm. Patient was in heart failure and received IV
Lasix 80 mg p.o. twice daily. Patient carvedilol dose was decreased to 6.25 mg twice daily. Patient with good diuretic response. Creatinine remained stable. Patient on discharge will be going home on Lasix 60 mg twice daily compared to prior to
arrival dosing of 40 mg twice daily. Patient also with prolonged QTc which was deemed secondary to amiodarone. Amiodarone was discontinued. Patient QTc continue to trend down. Patient has an appointment on Friday with cardiology for repeat EKG.
Patient be discharged home.
Discharge Plan
-
Patient Disposition: Home with Home Care
Discharge Diagnosis/Procedures: paroxysmal atrial fibrillation with rapid ventricular response
status post Transesophageal echocardiogram and cardioversion
Elevated troponin due to nonischemic myocardial injury
Acute on chronic systolic heart failure exacerbation
Condition: Fair
Diet: 2 Gram Sodium, Diabetic, Carb Controlled and Restrict fluids to 48 oz
Activity: With assistance and As tolerated
Driving Restrictions: As prior to admission
Blood Work: CMP in 1 week via primary doctor.
Other Services: VN
Specialty Instructions: Weigh Daily- Call MD for wt gain/loss 3 lbs overnight/5 lbs in 1 week
Instructions: *DCA Heart Failure Instructions
Referrals:
Leonarda Rosen PA-C [Specified Professional Personl] - 12/01/23 1:20 pm (You have cardiology follow up with Leonarda Rosen PA-C. If you are unable to make this visit please call [phone] to reschedule)
Dennis Hidalgo MD [Family Provider] - in less than 1 week
Additional Discharge Medication Instructions: Carvedilol dose was decreased to 6.25 mg twice daily. Lasix was increased to 60 mg twice a day
Prescriptions:
New
carvedilol 6.25 mg Tablet
6.25 mg PO BID 30 Days Qty: 60 0RF
furosemide 20 mg Tablet
60 mg PO BID AT 0800,1600 30 Days Qty: 180 0RF
Continued
aspirin 81 MG tablet,delayed release (DR/EC)
81 mg PO QPM
atorvastatin 80 MG tablet
80 mg PO QPM
cyanocobalamin (vitamin B-12) 1,000 MCG tablet
1,000 mcg PO DAILY
metformin 1,000 MG tablet
1,000 mg PO BID
potassium chloride 10 mEq Tablet Extended Release
10 meq PO QPM
insulin glargine [Lantus U-100 Insulin] 100 unit/mL solution
32 unit SC HS
therapeutic multivitamin Tablet
1 tab PO DAILY
Eliquis 5 mg Tablet
5 mg PO BID
Jardiance 25 mg Tablet
12.5 mg PO DAILY
Patient Comments:
11/23/2023, pt. gets this med. from [facility]; per spouse; pt. accidentally got Jardiance 25 mg from [place] when he was supposed to get 10 mg and PCP said pt. can take half tablet (12.5 mg) daily.
insulin aspart U-100 [Novolog FlexPen U-100 Insulin] 100 unit/mL (3 mL) insulin pen
5 unit SC BID
insulin aspart U-100 [Novolog FlexPen U-100 Insulin] 100 unit/mL (3 mL) insulin pen
0 sliding scale dose SC QPM
spironolactone 25 mg Tablet
25 mg PO DAILY Qty: 30 0RF
magnesium oxide 500 MG tablet
500 mg PO DAILY Qty: 30 0RF
Discontinued
furosemide 40 MG tablet
40 mg PO BID Qty: 0 0RF
carvedilol 25 mg Tablet
12.5 mg PO DAILY
Discharge Orders:
Discharge Patient (As Directed); Ordered 11/27/23
Ordered By: Alejandro Sue
Care Plan Goals
Care Plan Goals:
Problem: Readiness for enhanced knowledge related to diagnosis and treatment plan
Goal: Understand your diagnosis and treatment plan needs, including medications if applicable.
Instructions: Know your diagnosis, underlying causes and treatment plan options, including medications if applicable. Consult with your health care team to learn about your diagnosis and treatment plan, including medications if applicable.
Discharge Date and Time
Discharge Date/Time: 11/27/23 14:00
Print Language: BAHRAINI
== END 2023-11-27 14:00 | disposition home or self-care (01) | DRG 308 ==
LOC: IVU 12:51
PROVIDERS: Nuclear Medicine Nuclear Cardiology; Student in an Organized Health Care Education/Training Program; ADMITTING PHYSICIAN Internal Medicine; ATTENDING PHYSICIAN Hospitalist; CONSULT PHYSICIAN Internal Medicine Cardiovascular Disease; EMERGENCY PHYSICIAN Emergency Medicine; FAMILY PHYSICIAN Family Medicine
PROC: B24BZZ4 Ultrasonography of Heart with Aorta, Transesophageal (ICD-10-PCS; 2023-11-24)
PROC: 5A2204Z Restoration of Cardiac Rhythm, Single (ICD-10-PCS; 2023-11-24)
DX: I48.0 Paroxysmal atrial fibrillation (principal); I50.23 Acute on chronic systolic (congestive) heart failure; I13.0 Hypertensive heart and chronic kidney disease with heart failure and stage 1 through stage 4 chronic kidney disease, or unspecified chronic kidney disease; I5A Non-ischemic myocardial injury (non-traumatic); I42.0 Dilated cardiomyopathy; F17.200 Nicotine dependence, unspecified, uncomplicated; E11.22 Type 2 diabetes mellitus with diabetic chronic kidney disease; I25.10 Atherosclerotic heart disease of native coronary artery without angina pectoris; I65.21 Occlusion and stenosis of right carotid artery; E78.00 Pure hypercholesterolemia, unspecified; N18.9 Chronic kidney disease, unspecified; I70.209 Unspecified atherosclerosis of native arteries of extremities, unspecified extremity; I44.7 Left bundle-branch block, unspecified; E87.6 Hypokalemia; J44.9 Chronic obstructive pulmonary disease, unspecified; F20.9 Schizophrenia, unspecified; Z95.1 Presence of aortocoronary bypass graft; Z95.3 Presence of xenogenic heart valve; Z95.5 Presence of coronary angioplasty implant and graft; Z88.8 Allergy status to other drugs, medicaments and biological substances; Z79.82 Long term (current) use of aspirin; Z79.84 Long term (current) use of oral hypoglycemic drugs; Z79.4 Long term (current) use of insulin; Z79.01 Long term (current) use of anticoagulants
CPT/HCPCS: 71045; 80048; 80053; 80061; 82248; 82962; 83036; 83735; 83880; 84443; 84484; 85025; 85610; 85730; 92960; 93005; 93312; 93320; 93325; 96374; 96375; 97162; 99291

== ENCOUNTER 2023-12-24 10:49 | Day surgery (SDC) | payer OTHER, SELFPAY ==
[2023-12-24] VITALS (11 sets, daily range): BP systolic 109–140; BP diastolic 65–113; BMI 29.5
--- NOTE | 2023-12-24 10:12 | W.ICD.CONTRA ---
Post ICD/ENGINE MONITOR-D
-
History of CA?: Yes
LV Function
Left ventricular function study result?: Ejection Fraction </= 35%
ACEI/ARB/ARNI
Patient already on ACEI/ARB/ARNI: No
ACEI/ARB/ARNI Contraindication: Angiodema
Beta-Corey
Patient already on Beta Corey: Yes
[2023-12-24 11:47] LABS: Hematocrit 48.4 % (39.0-52.0); Hemoglobin 16.3 g/dL (13.0-18.0); Mean Corp Hgb Conc. 33.7 g/dL (33.0-37.0); Mean Corpuscular Hgb 31.2 pg (27.0-31.0); Mean Corpuscular Volume 92.7 fL (80.0-94.0); Mean Platelet Volume 10.1 fL (7.4-10.4); Platelet Count 172 10^3/uL (130-400); Red Blood Cell Count 5.22 10^6/uL (4.70-6.10); Red Cell Dist. Width 13.2 % (11.5-14.5); White Blood Cell Count 9.6 10^3/uL (4.8-10.8)
[2023-12-24 12:09] LABS: Glucose - Point of Care 125 mg/dl (70-99)
--- NOTE | 2023-12-24 14:51 | ITS.CL.ICD ---
Industrial Relations Analyst - ICD
Implantable Cardioverter Defibrillator
Procedure Report:
ICD IMPLANTATION REPORT
Date of Procedure: December 24, 2023
Primary Care Provider: Dr Dennis Hidalgo
Primary gastrointestinal technician: Dr Roberto Yoo
punch machine operator: Elliot Abarca M.D.
PROCEDURES:
1. Right Heart Cath, 2. BiV ICD Implant
INDICATION FOR PROCEDURE:
CHF Class 3, duration of HF > 3 mo despite guideline directed medical therapy at maximally tolerated doses, LBBB with QRS = 173 ms
HISTORY: Please refer to office history and physical exam
After informed consent was obtained, a 'time out' was called and confirmed. The patient was prepped and draped in a sterile fashion.
Lidocaine with epi was used for local anesthesia. Central venous access was obtained via axillary venipuncture. An incision was made along the left chest and a pre-pectoral pocket was formed. Using a Seldinger technique and peel-away sheaths, the
pacing leads were placed under fluoroscopic guidance.
Left bundle branch conduction system pacing was targeted for cardiac resynchronization. The Medtronic C315 sheath was used to deliver the Medtronic 3830 Selectsecure pacing lead with the helix exposed just exposed from the sheath tip during
continuous monitoring when pacemapping the septum during gentle clockwise rotation to obtain a paced QRS morphology of a W pattern in lead V1. Once the suspected optimal site was identified, lead deployment was performed with several rapid rotations
as paced QRS morphology was intermittently monitored until a paced QRS complex in lead V1 demonstrated development of an R wave (qR).
Unipolar pacing impedance dropped by approximately 100 ohms suggesting it had reached the left ventricular subendocardial.
Stable VEgm injury current is present throughout lead position and at end of case. suggesting there was no perforation through the septum into the LV cavity.
Final unipolar pacing impedance is 1050 Ohms
Unipolar pacing threshold is stable at 0.75 V @ 0.4 ms.
The patient had pre-existing left bundle branch block at baseline with QRS duration of 173.
Final conduction system paced QRS complex duration is 136 ms
LVAT is 96 ms and peak V5 -> peak V1 timing is 43 ms
Once testing (see below) showed adequate and stable function, the leads were secured using the suture sleeves. The pocket was liberally irrigated with antibiotic solution. The leads were connected to the generator header and the leads and
generator were placed within the pocket. Fluoroscopy confirmed stable lead position. The pocket was closed in the typical fashion.
FLUOROSCOPY:
Fluoroscopy was used to guide lead placement.
IMPLANTS:
ICD Medtronic [id number], SN RTG [id number] S , Left Pectoral
RA Medtronic 5076, SN PJNASA 675V
RV Medtronic 6935M, SN TDL [id number] V
LBB: Medtronic 3830 , SN:LFF [id number] V, Interventricular septum at LBB
DEVICE TESTING:
Sensing: RA 1.8, RV 20 mV
Capture: RA 0.5 V @ 0.4 ms, RV 0.75 V @ 0.4ms, LV 0.5 V@ 0.4ms
Ohms: RA 456, RV 570, LV 988
FINAL PROGRAMMING:
Jonh Pacing: [ ]
Tachy parameters:
VF: 188 bpm, ATP X 1, Shock
COMPLICATIONS:
None
CONCLUSIONS:
Implantation of cardiac resynchronization multichamber ICD
RECOMMENDATIONS:
Telemetry monitoring, CXR
Office wound check in 5-7 days.
Copy: Dr Roberto Yoo
[2023-12-24 15:42] LABS: Glucose - Point of Care 110 mg/dl (70-99)
[2023-12-24] MEDS: LASIX 30 MG PO (17:11)
[2023-12-24] MEDS: MAGNESIUM OXIDE 500 MG PO (17:12)
[2023-12-24] MEDS: KCL 10 MEQ PO (17:12)
[2023-12-24] MEDS: LIPITOR 80 MG PO (17:12)
[2023-12-24] MEDS: ASPIR LOW (ENTERIC COATED) 81 MG PO (17:13)
[2023-12-24] MEDS: ANCEF 5 IV (19:06)
--- NOTE | 2023-12-24 19:33 | PTCARENOTE ---
Pt received from recovery area post BIVICD placement, dressing dry and intact, no sign of bleeding or hematoma, pt denies any discomfort. Pt OOB independently, he is abiding by activity restrictions. Pt voiding without difficulty. telemetry shows V
paced rhythm with rare couplets.
--- NOTE | 2023-12-24 20:00 | PTCARENOTE ---
Assumed care. Patient resting comfortable. Left immobilizer intact and left chest wall pressure dressing intact. Denies pain. V-paced on telemetry. Walking in the room to the bathroom, gait is steady. Call gonzalez in reach
[2023-12-24] MEDS: COREG 6.25 MG PO (20:30)
[2023-12-24 21:41] LABS: Glucose - Point of Care 171 mg/dl (70-99)
[2023-12-24] MEDS: LANTUS 0.320000000000000007 UNITS SC (21:54)
[2023-12-24] MEDS: NOVOLOG FLEXPEN 5 UNITS SC (21:54)
[2023-12-25 03:18] VITALS: BP 108/78
[2023-12-25] MEDS: ANCEF 5 IV (03:23)
[2023-12-25 04:10] LABS: Hemoglobin 14.7 g/dL (13.0-18.0); Mean Corpuscular Hgb 30.9 pg (27.0-31.0); Mean Corpuscular Volume 88.4 fL (80.0-94.0); Platelet Count 152 10^3/uL (130-400); Red Blood Cell Count 4.75 10^6/uL (4.70-6.10); Red Cell Dist. Width 13.2 % (11.5-14.5); White Blood Cell Count 8.9 10^3/uL (4.8-10.8)
[2023-12-25 04:34] LABS: Blood Urea Nitrogen 21 mg/dl (9-20); Calcium 9.1 mg/dl (8.4-10.2); Carbon Dioxide 27 mmol/L (22-30); Chloride 100 mmol/L (98-107); Estimated Creatinine Clearance 77 ml/min; Glucose 138 mg/dl (70-99); Magnesium 2.4 mg/dl (1.6-2.3); Potassium 4.1 mmol/L (3.5-5.1); Sodium 139 mmol/L (135-145); eGFR > 60.00
[2023-12-25 06:00] VITALS: BMI 29.7
[2023-12-25 07:18] LABS: Glucose - Point of Care 124 mg/dl (70-99)
[2023-12-25 07:21] VITALS: BP 121/69
--- NOTE | 2023-12-25 07:34 | W.PN.CARDCBS ---
Addendum entered and electronically signed by Chino Contreras MD 12/25/23 09:34:
Patient seen and examined
Agree with REAL ESTATE APPRAISER SUPERVISOR note and assessment
Agree with REAL ESTATE APPRAISER SUPERVISOR plan
Examination:
Device site in the left deltopectoral groove is clean dry and intact
Telemetry demonstrates appropriate atrial sensing and biventricular pacing with a conduction area pacing lead
ECG reviewed demonstrating appropriate conduction system capture
Chest x-ray reviewed demonstrating appropriate lead positions
Cor regular
No extremity edema
Alert and x 3
Nonfocal neurologically
Remainder of examination per REAL ESTATE APPRAISER SUPERVISOR note
Primary Care Provider: Dr Dennis Hidalgo
Primary bead filler: Dr Roberto Yoo
Impression:
Chronic HFrEF 10-15%
CAD post RCA PCI in 2005 and SVG to PDA in 2016 with recent cardiac catheterization noting significant mid RCA disease with RPDA filling through the widely patent SVG October 22, 2023
Bioprosthetic AVR 2016 for severe aortic stenosis
PAF CV last admission 11/23
chronic LBBB
DM2
Hypertension
Hyperlipidemia
JESSICA post L CEA 2005
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 Gallagher
COPD
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
Plan:
Post BiV ICD implant Medtronic 12/24/23
site stable
CXR no PTX leads in position
tele AsVpaced, occ PVC's NSVT 3-4b
HF continue spironolactone, Jardiance, carvedilol, lasix
CAD continue ASA, statin, carvedilol
Hold Metformin 48 hours post procedure
Hold Eliquis resume on Friday am
Activity restrictions reviewed
inc check dca 1 week
home today
Original Note:
Today's Communication / Plan
-
post BiV ICD
home today
Impression / Plan
-
Primary Care Provider: Dr Dennis Hidalgo
Primary bead filler: Dr Roberto Yoo
Impression:
Chronic HFrEF 10-15%
CAD post RCA PCI in 2005 and SVG to PDA in 2017 with recent cardiac catheterization noting significant mid RCA disease with RPDA filling through the widely patent SVG October 22, 2023
Bioprosthetic AVR 2017 for severe aortic stenosis
PAF CV last admission 11/23
chronic LBBB
DM2
Hypertension
Hyperlipidemia
JESSICA post L CEA 2005
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 Gallagher
COPD
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
Plan:
Post BiV ICD implant Medtronic 12/24/23
site stable
CXR no PTX leads in position
tele AsVpaced, occ PVC's NSVT 3-4b
HF continue spironolactone, Jardiance, carvedilol, lasix
CAD continue ASA, statin, carvedilol
Hold Metformin 48 hours post procedure
Hold Eliquis resume on Friday am
Activity restrictions reviewed
inc check dca 1 week
home today
Progress Note - Database Development Project Manager
Subjective
Date of Service: December 25, 2023
no cp, sob, mild inc pain
Objective
Labs:
12/25/23 03:29
12/25/23 03:30
Labs
Hgb 14.7 g/dL (13.0-18.0) 12/25/23 03:29
Hct 42.0 % (39.0-52.0) 12/25/23 03:29
Plt Count 152 10^3/uL (130-400) 12/25/23 03:29
Sodium 139 mmol/L (135-145) 12/25/23 03:30
Potassium 4.1 mmol/L (3.5-5.1) 12/25/23 03:30
BUN 21 mg/dl (9-20) H 12/25/23 03:30
Creatinine 0.9 mg/dL (0.7-1.3) 12/25/23 03:30
Glucose 138 mg/dl (70-99) H 12/25/23 03:30
Vital Signs and I&O:
Vital Signs
Temp Pulse Resp BP Pulse Ox
97.6 F 60 20 108/78 97
12/25/23 07:19 12/25/23 05:00 12/25/23 07:19 12/25/23 03:18 12/25/23 07:19
Vital Signs
Temp Pulse Resp BP Pulse Ox
97.6 F 60 20 108/78 97
12/25/23 07:19 12/25/23 05:00 12/25/23 07:19 12/25/23 03:18 12/25/23 07:19
Intake & Output
12/23/23 12/24/23 12/25/23 12/26/23
06:59 06:59 06:59 06:59
Intake Total 720 / 720
Balance 720 / 720
Physical Exam
Physical Exam
NAD, AOX3
S1, s2, RRR
CTAB, non labored
SNTND bsx4
L CW Aquacel dressing c/d/i no HT, pressure dressing removed
[2023-12-25] MEDS: TYLENOL 650 MG PO (07:58)
[2023-12-25] MEDS: COREG 6.25 MG PO (07:59)
[2023-12-25] MEDS: ALDACTONE 25 MG PO (07:59)
[2023-12-25] MEDS: LASIX 30 MG PO (07:59)
[2023-12-25] MEDS: JARDIANCE 12.5 MG PO (08:00)
[2023-12-25] MEDS: NOVOLOG FLEXPEN 5 UNITS SC (08:02)
[2023-12-25 09:34] LABS: Glycohemoglobin (HgbA1c) 7.1 % (4.0-5.6)
--- NOTE | 2023-12-25 10:48 | PTCARENOTE ---
Pt seen by . Telemetry and IV device removed. Discharge instructions reviewed with pt and his regarding activity and driving restrictions, wound care, pain management, medications and their possible side effects, reporting cares and
concerns and follow up appt's. Very good understanding verbalized. Pt escorted out via wheelchair and discharged to home.
--- NOTE | 2023-12-25 11:00 | W.DS.TRANS ---
DC Summary - Roading Engineer
-
Discharge Instructions:
Sleep Apnea Risk High
Discharge Diagnosis/Procedures Bi-V ICD implant
Diet Low Cholesterol,Diabetic, Carb Controlled,2 Gram
Sodium,Restrict fluids to 48 oz
Driving Restrictions No driving for 1 week
Bathing Restrictions OK to Shower
Specialty Instructions Weigh Daily
Instructions:
Stand-Alone Forms: DC Inst - Implanted Device
Changes to Home Medications: No
Discharge Medications:
DC Medications w/original date entered in [facility]
aspirin 81 mg tablet,delayed release 81 mg PO QPM Blood clot prevention/tx 03/20/17
atorvastatin 80 mg tablet 80 mg PO QPM High cholesterol 12/27/20
cyanocobalamin (vitamin B-12) 1,000 mcg tablet 1,000 mcg PO DAILY Supplement 12/27/20
metformin 1,000 mg tablet 1,000 mg PO BID Diabetes 01/15/21
potassium chloride 10 mEq tablet,extended release 10 meq PO QPM Electrolyte Repletion 08/24/23
insulin glargine 100 unit/mL subcutaneous solution (Lantus U-100 Insulin) 32 unit SC HS Diabetes 10/22/23
apixaban 5 mg tablet (Eliquis) 5 mg PO BID Blood Clot Prevention/Tx 11/23/23
empagliflozin 25 mg tablet (Jardiance) 12.5 mg PO DAILY Diabetes 11/23/23
insulin aspart U-100 100 unit/mL (3 mL) subcutaneous pen (Novolog FlexPen U-100 Insulin aspart) 0 sliding scale dose SC QPM Diabetes 11/23/23
insulin aspart U-100 100 unit/mL (3 mL) subcutaneous pen (Novolog FlexPen U-100 Insulin aspart) 5 unit SC BID Diabetes 11/23/23
therapeutic multivitamin 1 tab PO DAILY Supplement 11/23/23
carvedilol 6.25 mg tablet 6.25 mg PO BID Heart disease/condition 30 days #60 tabs 11/27/23
spironolactone 25 mg tablet 25 mg PO DAILY Blood pressure #30 tabs 11/27/23
furosemide 20 mg tablet 30 mg PO BID Fluid Retention/Swelling 12/24/23
magnesium oxide 500 mg PO QPM Electrolyte Repletion 12/24/23
Home Medication Changes
Pending Results: No
--- NOTE | 2023-12-25 11:25 | CM ---
spoke to pt in room, he is prev indep, lives with his in a split level home with no steps to enter. he denies any dc planning needs or dme's. plan is for dc to home today.
--- NOTE | 2023-12-25 12:14 | W.HF.CON ---
Heart Failure
- LV Function
Left ventricular function study result: LV Ejection fraction </= 35%
Ejection Fraction Percentage: 10-15
- ARNI
Patient already on ARNI: No
Heart Failure ARNI Contraindication: Angioedema
- ACEI/ARB
Patient already on ACEI/ARB: No
Heart Failure ACEI/ARB Contraindication: Angioedema
- Beta Corey
Patient already on Evidence Based Beta Corey: Yes
- Mineralocorticord Receptor Antagonist
Patient already on MRA: Yes
- SGLT-2 Inhibitor
Patient already on SGLT-2 Inhibitor: Yes
- Afib Anticoagulation
Patient already on Anticoagulation for Afib: Yes
- NYHA CHF Classification
NYHA CHF Classification Level: Class II - Slight limitation by SOB and/or fatigue during mod exertion
- ACC/AHA Stage
ACC/AHA Stage: Stage C: Symptomatic Heart Failure
== END 2023-12-25 10:45 | disposition home or self-care (01) ==
LOC: CATH 10:49
PROVIDERS: Nurse Practitioner; ATTENDING PHYSICIAN Internal Medicine Cardiovascular Disease; FAMILY PHYSICIAN Family Medicine; OTHER PHYSICIAN Internal Medicine Cardiovascular Disease
DX: I11.0 Hypertensive heart disease with heart failure (principal); I50.9 Heart failure, unspecified; I44.7 Left bundle-branch block, unspecified; I48.0 Paroxysmal atrial fibrillation; I25.10 Atherosclerotic heart disease of native coronary artery without angina pectoris; E78.00 Pure hypercholesterolemia, unspecified; E11.9 Type 2 diabetes mellitus without complications; J44.9 Chronic obstructive pulmonary disease, unspecified; I25.2 Old myocardial infarction; I65.22 Occlusion and stenosis of left carotid artery; Z95.3 Presence of xenogenic heart valve; Z95.5 Presence of coronary angioplasty implant and graft; Z87.891 Personal history of nicotine dependence; Z79.82 Long term (current) use of aspirin; Z79.84 Long term (current) use of oral hypoglycemic drugs; Z79.4 Long term (current) use of insulin
CPT/HCPCS: 33249; 33225; C1769; C1892; C1887; 71045; 80048; 82962; 83036; 83735; 85027; 93005; 93451; C1777; C1882; C1898; Q9967

== ENCOUNTER 2024-01-14 10:14 | Day surgery (SDC) | payer OTHER, SELFPAY ==
[2024-01-14] VITALS (13 sets, daily range): BP systolic 96–135; BP diastolic 53–86
[2024-01-14 10:45] LABS: Glucose - Point of Care 129 mg/dl (70-99)
--- NOTE | 2024-01-14 14:18 | ITS.CL.PN ---
Flamer Sealer - Procedure Note
Procedure
Procedure Note:
Cardiac implanted device wound revision/repair.
Date: 01/14/24
Procedure: Repair of TRANSMISSION REPAIRER-D wound with poor apposition of the cutaneous tissue layer
History: TRANSMISSION REPAIRER-D implantation 12/24/23 with failure of proper healing of the superficial/cutaneous tissue layer towards the superior edge of the wound
Patient was prepped and draped in sterile fashion. The wound was inspected and there is failure of appropriate tissue apposition at the most superficial/cutaneous layer of the wound towards its superior edge. Lidocaine with epinephrine was used to
anesthetize the area locally. Minimal local debridement was performed. The area was irrigated with antibiotic solution. 3-0 Prolene stitch was used to apply to mattress suture ties to more appropriately oppose the wound edges. Steri-Strips were
applied. Aquacel dressing was applied.
Complications: None
Recommendations: Return to office in 7 to 10 days for stitch removal.
--- NOTE | 2024-01-14 14:24 | PTCARENOTE ---
Vital signs prior to 1423 obtained by previous RN.
[2024-01-14 14:45] LABS: Glucose - Point of Care 94 mg/dl (70-99)
--- NOTE | 2024-01-14 15:55 | PTCARENOTE ---
While giving discharge instructions to pt and pt's , Pt's states Dr Abarca stated 01/18/2024 for incision follow up is 'too early and needs to be rescheduled.' Jennifer VARELA made aware and states she will make a new appt. After
attempting to make new appt, Jennifer GALVAN at pt bedside stating Dr Abarca's office states that is the only appt they have available and he needs to keep that appt.' Pt verbalized understanding.
== END 2024-01-14 15:51 | disposition home or self-care (01) ==
LOC: CATH 10:14
PROVIDERS: ATTENDING PHYSICIAN Internal Medicine Cardiovascular Disease; FAMILY PHYSICIAN Family Medicine; OTHER PHYSICIAN Internal Medicine Cardiovascular Disease
DX: T81.31XA Disruption of external operation (surgical) wound, not elsewhere classified, initial encounter (principal); Y83.1 Surgical operation with implant of artificial internal device as the cause of abnormal reaction of the patient, or of later complication, without mention of misadventure at the time of the procedure; Z88.8 Allergy status to other drugs, medicaments and biological substances; I25.5 Ischemic cardiomyopathy; I50.22 Chronic systolic (congestive) heart failure; Z95.810 Presence of automatic (implantable) cardiac defibrillator
CPT/HCPCS: 12020; 82962

== ENCOUNTER → 2024-03-19 09:01 | Outpatient (REF) | payer OTHER, SELFPAY | LOC: RCS 09:01 | PROVIDERS: ATTENDING PHYSICIAN Internal Medicine Cardiovascular Disease; FAMILY PHYSICIAN Family Medicine | DX: I42.0 Dilated cardiomyopathy (principal) | CPT/HCPCS: 93306; Q9957 ==

== ENCOUNTER → 2024-05-20 07:28 | Outpatient (REF) | payer OTHER, SELFPAY | LOC: RAD 07:28 | PROVIDERS: ATTENDING PHYSICIAN Surgery Vascular Surgery; FAMILY PHYSICIAN Family Medicine | DX: I77.9 Disorder of arteries and arterioles, unspecified (principal); I73.9 Peripheral vascular disease, unspecified | CPT/HCPCS: 93880; 93922; 93925 ==

== ENCOUNTER → 2024-06-03 09:00 | Outpatient (REF) | payer OTHER, SELFPAY | LOC: RAD 09:00 | PROVIDERS: ATTENDING PHYSICIAN Surgery Vascular Surgery; FAMILY PHYSICIAN Family Medicine; OTHER PHYSICIAN Internal Medicine Cardiovascular Disease | DX: I65.29 Occlusion and stenosis of unspecified carotid artery (principal) | CPT/HCPCS: 70496; 70498; Q9967 ==

== ENCOUNTER 2024-06-09 06:14 | Inpatient (IN) | payer OTHER, SELFPAY ==
[2024-06-03 09:30] VITALS: BMI 31.3
[2024-06-03 10:02] LABS: % Basophils 0.5 % (0-2); % Eosinophils 1.4 % (0-6); % Immature Granulocytes 0.3 % (0-0.5); % Lymphocytes 22.6 % (20.5-51.1); % Neutrophils 66.2 % (42.2-75.2); Absolute Basophils 0.1 10^3/uL (0-0.2); Absolute Eosinophils 0.1 10^3/uL (0-0.7); Absolute Lymphocytes 2.1 10^3/uL (1.2-3.4); Absolute Monocytes 0.8 10^3/uL (0.1-0.6); Absolute Neutrophils 6.1 10^3/uL (1.4-6.5); Hematocrit 45.4 % (39.0-52.0); Hemoglobin 15.5 g/dL (13.0-18.0); Mean Corp Hgb Conc. 34.1 g/dL (33.0-37.0); Mean Corpuscular Hgb 30.8 pg (27.0-31.0); Mean Corpuscular Volume 90.1 fL (80.0-94.0); Mean Platelet Volume 10.3 fL (7.4-10.4); Nucleated Red Blood Cells % 0 % (-); Platelet Count 163 10^3/uL (130-400); Red Blood Cell Count 5.04 10^6/uL (4.70-6.10); White Blood Cell Count 9.2 10^3/uL (4.8-10.8)
[2024-06-03 10:17] LABS: Blood Urea Nitrogen 26 mg/dl (9-20); Calcium 9.3 mg/dl (8.4-10.2); Carbon Dioxide 32 mmol/L (22-30); Chloride 99 mmol/L (98-107); Estimated Creatinine Clearance 67 ml/min; Glucose 79 mg/dl (70-99); Potassium 4.4 mmol/L (3.5-5.1); Sodium 142 mmol/L (135-145); eGFR > 60.00
[2024-06-03 10:18] LABS: APTT 33.1 Sec (23.4-35.0); INR 1.37
--- NOTE | 2024-06-03 10:52 | PTCARENOTE ---
Yvonne in Dr Gallagher's office made aware of INR 1.37.
[2024-06-09] VITALS (26 sets, daily range): BP systolic 109–142; BP diastolic 73–108; BMI 29.7
[2024-06-09 07:05] LABS: Glucose - Point of Care 170 mg/dl (70-99)
[2024-06-09] MEDS: PERIDEX 0.12% ORAL RINSE 15 ML PO (07:05)
[2024-06-09] MEDS: BACTROBAN NASAL 1 GRAM NASAL (07:06)
[2024-06-09] MEDS: NSS 500 IV (07:08)
--- NOTE | 2024-06-09 07:18 | W.SUR.PREOP ---
Pre-Operative Surgical Note
-
I have examined this patient prior to the performance of the scheduled procedure.
The patient's condition is unchanged from the time of the current History and
Physical and the patient is able to undergo the scheduled procedure.
Discussed CT scan findings. Severe calcific plaque. Extensive bulky plaque at the bifurcation. Even common carotid artery plaque that results in probably moderate to high-grade stenosis there. Distal ICA is underfilled and very small. It
appears patent however. I cannot tell if it is chronically occluded and recanalized or this is underfilled. Based on ultrasound and CT scan I think underfilled due to severity of stenosis. Discussed that he is symptomatic and would favor
revascularization if possible. However it may not be completely achievable. Discussed will attempt. Discussed exploration with possible right carotid endarterectomy, possible need for bypass (due to long segment occlusive plaque), and possible
carotid stenting as well. Risks including but not limited to bleeding, infections, cardiac complications/AR, cranial nerve injury, stroke all discussed. He understands all these and wishes to proceed.
--- NOTE | 2024-06-09 10:27 | W.SUR.POST ---
Surgical Immediate Post Op
Note
Pre Op Diagnosis: Right carotid artery stenosis
Post Op Diagnosis: Right carotid artery stenosis
Procedure Performed: Right carotid artery bypass with interposition graft
Primary Surgeon: Christopher Gallagher MD
assistant refinery operator: NICHOLE Dhillon
Anesthesia: GETA
Estimated Blood Loss: 40 mL
Fluids: see anesthesia flowsheet
Drains/Shunts: N/A
Specimens/Cultures: Right carotid artery and plaque
Doppler/Duplex/Angio (Y/N): Y
Complications: None
Operative Findings: Upon awakening from anesthesia was able to move bilateral upper extremities and lower extremities without difficulty spontaneously and to command
[2024-06-09 10:54] LABS: Glucose - Point of Care 196 mg/dl (70-99)
[2024-06-09 11:14] LABS: Hematocrit 44.6 % (39.0-52.0); Hemoglobin 15.6 g/dL (13.0-18.0); Mean Corpuscular Volume 88.5 fL (80.0-94.0); Platelet Count 191 10^3/uL (130-400); Red Blood Cell Count 5.04 10^6/uL (4.70-6.10); Red Cell Dist. Width 13.2 % (11.5-14.5); White Blood Cell Count 13.1 10^3/uL (4.8-10.8)
--- NOTE | 2024-06-09 11:18 | OR.RPT ---
Operative Report
Operative Report
PROCEDURE DATE: 06/09/2024
Preoperative diagnosis:
1. Symptomatic right carotid severe stenosis/near occlusion with severe, extensive bulky atherosclerotic plaque.
2. Distal cervical carotid bifurcation and very distal cervical endpoint internal carotid artery.
Postoperative diagnosis: Same
Procedure: Right common carotid to internal carotid artery bypass with 6 mm ringed [place] Propaten graft.
Surgeon: Elliott
Cyber Security Specialist: MANDY Rodriguez, required for all aspects of procedure including assistance with traction/countertraction, following of suture line, assistance with closure.
Complications: None
Anesthesia: General, nasotracheal intubation.
Indications for procedure:
Patient with severe significant medical comorbidities, chronic right carotid extensive bulky atherosclerotic plaque. Prior had felt that he was too high risk both anatomically, due to the extent of the plaque, and due to his medical risk factors
for revascularization of asymptomatic carotid stenosis. However, unfortunately now had developed worsening stenosis with trickle like flow, possible occlusion of ICA (though on imaging appeared to be patent) and now symptoms of left hand repeated
weakness. Given repeated TIA symptoms and degree of stenosis, etc, we extensively reviewed imaging and discussed extensively with patient and his . Limited options and very high risk. Stenting was not feasible due to the severe bulky plaque
which extended over 2 to 3 cm in the proximal ICA, and circumferential nature with no real great pinhole to even wire through. I did not feel the stent would even expand here. Therefore stenting was an option. Endarterectomy was brought with
challenges due to high bifurcation and high distal endpoint. However, I felt this was the only option. I did discuss with the patient the possibility of needing carotid interposition bypass graft, possible adjuvant stenting, and even the
possibility of distal ligation. He understood all wished to proceed. We elected to proceed with nasotracheal intubation in order to allow better distal exposure (I discussed with anesthesia team). Notes the patient had extensive bulky common
carotid artery plaque more proximally as well. Did not cause as high degree of stenosis though. In addition there was a point in the very distal common carotid just proximal to the bifurcation where the artery appeared to be clamp able and
achievable to get an endpoint. I felt that it might be better to try to achieve an endpoint there rather than chasing the plaque all the way down the proximal common carotid artery. (Especially given that symptoms most likely due to the bulky left
ICA plaque).
Description of procedure:
Patient was identified brought to the operating room placed on the table in supine position. After the adequate administration of anesthesia and perioperative antibiotics he was prepped and draped in the standard surgical fashion. A standard
preoperative timeout was undertaken and everybody was in agreement the plan. A fairly liberal standard longitudinal incision was made in the right neck that was carried through the skin subcutaneous tissue. Using the electrocautery dissection was
carried through the platysma muscle layer and then alongside the anterior medial border of the sternocleidomastoid muscle. Then using a combination of sharp dissection with the Metzenbaum scissors and electrocautery I dissected along the anterior
medial border of the internal jugular vein. The common facial vein branch was ligated between silk ties and then divided. Any additional vein branches were ligated or clipped and then divided. I then deepened my retraction. The common carotid
artery was identified and carefully dissected away from the surrounding structures take great care to avoid any injury to the structures. A vessel loop was passed around it which was double looped, but not yet tightened. Note the vagus nerve was
clearly visualized in its usual course posterior lateral to the common carotid artery, and was protected from harm's way. I then continued my dissection up the common carotid artery to the bulb staying only on the anterior surface of the carotid
artery. Then I carried the dissection up to the internal carotid artery and then to the distal internal carotid artery. All the way up, the internal carotid artery was severely calcified and hardened. I could not still find an endpoint. I knew
that the endpoint was going to be very distal however and was prepared for this. The tissues were a little tough to dissect off the internal carotid artery due to the likely inflammatory scarring created by the heavy atherosclerotic plaque. At
this point, I identified the hypoglossal nerve. I identified the posterior belly of the digastric muscle. I divided the posterior belly of the digastric muscle. Once I did this I was able to dissect in the plane just cephalad to the hypoglossal
nerve (prior to doing this the occipital branch of the external carotid artery that crossed in the vicinity of the hypoglossal nerve was ligated between silk ties and divided). Gentle dissection of the perineural tissues of the hypoglossal nerve
were undertaken and a vessel loop was passed around it to allow very gentle retraction. As such I retracted the nerve gently inferiorly and just superior/cephalad I was able to dissect through the tissues to identify the distal internal carotid
artery where it was soft. I then carefully circumferentially dissected and passed a vessel loop around it. The patient was given an appropriate dose of heparin 10,000 units. Next I dissected the anterior surface of the external carotid artery and
superior thyroid branches. I had difficulty circumferentially dissecting these due to the bulky plaque and therefore I felt that I would wait until I clamped the internal carotid artery so I could dissect a little bit more vigorously. After 3
minutes of heparin circulation time and confirmation of optimization of the blood pressure with my anesthesiology colleagues, I clamped the distal internal carotid artery where it was soft. There was no immediate EEG or SSEP changes. After 1
minute of test clamp time there was no changes noted. I now quickly circumferentially dissected the external carotid and superior thyroid branches and Vesseloops were passed around these which are doubled and tightened. I also now clamped the
common carotid artery where it was soft just proximal to the bifurcation. Given the very distal extent of the internal carotid artery plaque disease and the endpoint being well above the hypoglossal and therefore endarterectomy underneath the
hypoglossal would have been very challenging, and more importantly given the fact that the plaque was so bulky based on imaging and based on palpation that I felt that endarterectomy was going to severely thin the wall rendering and nonviable wall,
I elected to primarily perform an interposition bypass here.
I therefore then transected the internal carotid artery at the endpoint of the plaque. When I did this I allowed the cut edge of the distal internal carotid artery to flip upward so that it was anterior to the hypoglossal nerve. I felt this would
facilitate sewing. I now transected the common carotid artery just distal to my plaque. There was no significant stenosis in the common carotid artery at this juncture, there was some mild plaque posteriorly however. Now I fully dissected out the
carotid bulb and proximal internal carotid artery (had been transected in the common carotid artery and the internal carotid artery, and now I transected the external carotid artery origin as well). And now I removed this segment of artery as well
as to allow room for the graft to lay. I now brought onto the field a 6 mm [place] ringed Propaten graft. I elected to perform the distal anastomosis first. I slightly spatulated the internal carotid artery distally to better size match. I did
backbleed the artery to make sure backbled reasonably. I now sewed an end-to-end anastomosis to the graft using [place] CV 6 running suture. I completed and tied down my suture line. Now I backbled the internal carotid artery through the graft. I
then removed redundancy in the graft and trimmed it. I removed the rings in the proximal extent. I then beveled the graft slightly and sewed an end-to-end anastomosis to the common carotid artery using a running [place] CV 6 suture. Prior to
completing and tying down my suture line I backbled both the internal carotid artery and then the common carotid artery (sequentially) and flushed heparinized saline. I then completed and tied down my suture line. Now I released flow in the
internal and common carotid arteries. There is excellent pulsatile flow in the internal carotid artery distal to the anastomosis. Doppler confirmed an excellent signal. There was a couple suture line bleeders on the common carotid artery
anastomosis, and therefore I placed [id number] couple sutures to repair these. Hemostasis was then fully achieved there. I then gave protamine to reverse the heparin. I ligated the origin of the external carotid artery and superior thyroid
branches and removed my Vesseloops. I now noted 1 small bleeding point on the posterior aspect of the suture line at the distal anastomosis. This was repaired with 2 [id number] [place] CV 6 sutures. Hemostasis was fully noted. I then
irrigated. Confirmed full hemostasis again. I then closed in layers using a running 2-0 Vicryl layer followed by 3-0 Vicryl platysma muscle layer running, followed by 4-0 Monocryl subcuticular running stitch. Dermabond is applied. The patient
tolerated the procedure well. He awoke moving all 4 extremities to command with his tongue in the midline.
[2024-06-09 11:25] LABS: Blood Urea Nitrogen 28 mg/dl (9-20); Calcium 8.9 mg/dl (8.4-10.2); Carbon Dioxide 23 mmol/L (22-30); Chloride 104 mmol/L (98-107); Estimated Creatinine Clearance 67 ml/min; Glucose 180 mg/dl (70-99); Potassium 4.3 mmol/L (3.5-5.1); Sodium 143 mmol/L (135-145); eGFR > 60.00
--- NOTE | 2024-06-09 12:02 | SUR.PHASEI ---
Patient transferred to ICU, phone and bedside report to Shira Pugh RN. Patient awakeand alert, neuro signs intact, slight rt mouth asymmetry noticed. VSS. Meggan Headley RN BSN.
--- NOTE | 2024-06-09 12:30 | PTCARENOTE ---
Patient received at 1205 from PACU, neuro check performed at bedside with JET WIPER Aneesh. Patient appears to have slight left facial droop and very slight left hand grasp weakness when compared to the right. Vascular surgery notified. Patient noted
to be with rapid Afib underlying rhythm with Vpaced rhythm, HR 110s-140s. [place] left brachial site, WNL. Leveled and zeroed as needed. Ivy and cuff BP within 10-15mmHg. Patient c/o mild sore throat and right neck pain, 3/10, states pain is
tolerable and refuses offer of pain medication. Right neck anterolateral incision with dermabond CDI, no drainage or swelling, mild ecchymosis noted, ice pack to neck per order. Labwork, CXR and EKG done per ICU protocol. See admission assessment
charted. Dr Lorenzo notified of Elevated HR. New orders received. Plan of care reviewed and call gonzalez within reach.
[2024-06-09] MEDS: NSS 1000 IV (12:31)
[2024-06-09 12:39] LABS: Glucose - Point of Care 196 mg/dl (70-99)
[2024-06-09] MEDS: COREG 6.25 MG PO ×2 (13:06→21:11)
[2024-06-09] MEDS: LOPRESSOR 5 MG IV (13:06)
[2024-06-09] MEDS: NOVOLOG FLEXPEN-HIGH RESISTANCE 2 UNITS SC (13:12)
--- NOTE | 2024-06-09 13:15 | PTCARENOTE ---
Vascular Surgery- Madai Moore VICE PRESIDENT OF MARKETING in to see pt- feels that facial droop noted on the L is more likely is normal resting postion and that the R side of the face/mouth may be elevated from surgery. L neck incision is unchanged. At first thought speech
may be a little 'thick'-slurred but per and pt speech is at baseline. Bilateral handgrasps are equal. VS as documented. Lunch ordered.
[2024-06-09 13:23] LABS: INR 1.11; PT 14.8 Sec (11.4-14.6)
[2024-06-09 13:24] LABS: APTT 24.6 Sec (23.4-35.0)
--- NOTE | 2024-06-09 13:42 | CON.INTV ---
Consultation
Consultation Request
Date/Time Consultation Requested: 06/09
Date/Time Consultation Performed: 1315
Medical History
-
Chief Complaint: Carotid artery bypass procedure
History of Present Illness:
Patient is a 79-year-old male with past medical history as below, who is admitted to the ICU for closer monitoring following right common carotid to internal carotid artery bypass procedure earlier today. This procedure was performed due to
symptomatic right carotid severe stenosis/near occlusion with severe, extensive bulky atherosclerotic plaque,and distal cervical carotid bifurcation and very distal cervical endpoint internal carotid artery. Hemostasis was achieved and maintained
after procedure.
On arrival in the ICU, he was tachycardic and was given Lopressor. Heart rate has improved since and around 115. Rest of vital signs are stable. Patient denies feeling lightheaded. Denies SOB and chest pain. Denies feeling nauseous. Does not
report headache.
PMH: Chronic HFrEF s/p ICD IMPLANTATION (December 2023), CAD s/p PCI 2005, CABG x 1 with AVR 2016 (for ), PAD, RLE femoral bypass with stents 2020, Left carotid endarterectomy 2005, Chronic LBBB, DM2, COPD, Essential hypertension, Hyperlipidemia,
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
Past Medical History
Past Medical History: Other (See HPI)
Social History
Tobacco: Non-smoker
Alcohol: Occasional
Drug: None
Personal:
Living: With Family
Allergies / Home Medications
Allergies
Allergy/AdvReac Type Severity Reaction Status Date / Time
DANN Inhibitors Allergy Swelling/an Verified 06/01/24 14:03
gioedema
enalaprilat [From Vasotec] Allergy angioedema Verified 06/01/24 14:03
lisinopril Allergy angioedema Verified 06/01/24 14:03
losartan Allergy angioedema Verified 06/01/24 14:03
Home Medications
�Medication �Instructions �Recorded �Confirmed �Last Taken �Type
aspirin 81 mg tablet,delayed 81 mg PO QPM Blood clot 03/20/17 06/09/24 06/08/24 History
release prevention/tx 1800
atorvastatin 80 mg tablet 80 mg PO QPM High cholesterol 12/27/20 06/09/24 06/08/24 18:00 History
cyanocobalamin (vitamin B-12) 1,000 mcg PO DAILY Supplement 12/27/20 06/09/24 06/08/24 08:00 History
1,000 mcg tablet
metformin 1,000 mg tablet 1,000 mg PO BID Diabetes 01/15/21 06/09/24 06/08/24 08:00 History
potassium chloride 10 mEq 10 meq PO QPM Electrolyte Repletion 08/24/23 06/09/24 06/08/24 18:00 History
tablet,extended release
insulin glargine 100 unit/mL 32 unit SC HS Diabetes 10/22/23 06/01/24 01/13/24 20:30 History
subcutaneous solution (Lantus
U-100 Insulin)
apixaban 5 mg tablet (Eliquis) 5 mg PO BID Blood Clot 11/23/23 06/09/24 06/06/24 08:00 History
Prevention/Tx
empagliflozin 25 mg tablet 12.5 mg PO DAILY Diabetes 11/23/23 06/09/24 06/05/24 08:00 History
(Jardiance)
insulin aspart U-100 100 unit/mL 0 sliding scale dose SC AC Diabetes 11/23/23 06/01/24 01/13/24 17:30 History
(3 mL) subcutaneous pen (Novolog
FlexPen U-100 Insulin aspart)
therapeutic multivitamin 1 tab PO DAILY Supplement 11/23/23 06/01/24 01/14/24 08:00 History
carvedilol 6.25 mg tablet 6.25 mg PO BID Heart 11/27/23 06/09/24 06/08/24 18:00 Rx
disease/condition 30 days #60 tabs
spironolactone 25 mg tablet 25 mg PO DAILY Blood pressure #30 11/27/23 06/09/24 06/08/24 08:00 Rx
tabs
furosemide 20 mg tablet 30 mg PO BID Fluid 12/24/23 06/09/24 06/08/24 08:00 History
Retention/Swelling
magnesium oxide 500 mg PO DAILY Electrolyte 12/24/23 06/09/24 06/08/24 18:00 History
Repletion
Review of Systems
-
History Source: Patient
All other systems: Negative unless noted
EENT: Sore Throat (Likely irritation post intubation)
Cardiac: Palpitations
Abdomen/GI: Other (Last bowel movement was this morning before procedure)
Neuro: Headache (Negative), Weakness (Negative) and Numbness (Negative)
Vitals / Labs / Diagnostic Testing
Vital Signs
Temp Pulse Resp BP Pulse Ox
97.9 F 117 21 142/83 96
06/09/24 12:30 06/09/24 13:06 06/09/24 11:30 06/09/24 13:06 06/09/24 11:30
Lab Data
06/09/24 10:59
06/09/24 10:59
Laboratory Results
06/09/24
13:01
PT 14.8 H
INR 1.11
APTT 24.6
Diagnostic Testing:
Physical Exam
-
HEENT: Anicteric, Moist Mucous Membranes (Slightly dry mucous membranes) and Other ( No discharge from surgery site on right side of neck, mild facial droop on the left side (Vascular surgery FISHING TOOL OPERATOR believes this is patient's baseline), both pupils
reactive to light, able to puff out both cheek)
Cardiovascular: S1/S2, Regular Rhythm (Tachycardic) and Murmur (Negative)
Respiratory: Clear, Non-Labored Respirations and Other (Saturating 95% on 2l O2)
GI: Soft, Distended, Non Tender and Normal Bowel Sounds
Neurology: Awake, Alert, Oriented, AO x 3 and No Motor Deficits
Skin: Warm and Dry
Assessment
-
79-year-old male with chronic HFrEF status post ICD implant, paroxysmal A-fib, essential hypertension, IDDM, COPD, CAD s/p PCI and CABG admitted to ICU for closer monitoring post carotid artery bypass procedure earlier today.
#Tachycardia
-Received Lopressor on arrival in ICU
-improving
# Leukocytosis- Most likely post-op related
-Currently afebrile
-Will continue to monitor for any signs of possible infection
-CXR
-Continue home meds for IDDM
-Continue aspirin, lipitor
-Continue Coreg, Aldactone, Farxiga, Lasix
-Electrolytes WNL. Replete if needed
-Keep O2 sat 90-94, may wean O2 as tolerated
-Monitor I/Os
-Hgb is stable. Keep Hgb>8
-Encourage IS
-Check routine labs, coagulation studies
-Closely monitor facial neurologic exam
-DVT prophylaxis: Heparin every 12hrs
-Will cont to follow
--- NOTE | 2024-06-09 15:13 | PTCARENOTE ---
Trialed patient on RA. Sats dropped to 86-88%. Oxygen replaced at 2L/nc. Encouraged to DB & C. IS brought to bedside.
--- NOTE | 2024-06-09 16:00 | PTCARENOTE ---
No marked change in patient assessment. BBS remain clear except some crackles audible right base. Right neck wound with some mild swelling and ecchymosis, soft. Remains on 2L/nc. Voiding per urinal. Tolerating po intake.
[2024-06-09] MEDS: KCL 10 MEQ PO (17:15)
[2024-06-09] MEDS: TYLENOL 650 MG PO (17:15)
[2024-06-09] MEDS: LIPITOR 80 MG PO (17:15)
--- NOTE | 2024-06-09 17:15 | PTCARENOTE ---
Dr Gallagher at bedside to assess, updated with patient status. Order obtained for SCDs.
[2024-06-09] MEDS: ASPIR LOW (ENTERIC COATED) 81 MG PO (17:16)
[2024-06-09] MEDS: NOVOLOG FLEXPEN-HIGH RESISTANCE 10 UNITS SC (17:17)
[2024-06-09 17:26] LABS: Glucose - Point of Care 307 mg/dl (70-99)
--- NOTE | 2024-06-09 17:35 | PTCARENOTE ---
HR continues to be elevated 110s-130s. Patient's states that Thuan was restarted on his oral Amiodarone 2 days [address] cardiology. Dr. Lorenzo notified, new orders received. Pharmacy aware. For 1800 dose of oral Amiodarone.
[2024-06-09] MEDS: PACERONE 200 MG PO (17:45)
--- NOTE | 2024-06-09 19:32 | PTCARENOTE ---
Report endorsed to oncoming shift, questions answered.
--- NOTE | 2024-06-09 21:00 | PTCARENOTE ---
Neurochecks performed at bedside w/ marianna LLANOS. Neurochecks unchanged with the exception of left DP pulse now being present with doppler. Pt denies pain. Surgical site has surgical glue present but is otherwise C/D/I.
[2024-06-09] MEDS: HEPARIN 5000 UNITS SC (21:12)
[2024-06-09] MEDS: GLUCOPHAGE 1000 MG PO (21:12)
[2024-06-09] MEDS: LANTUS 0.32 UNITS SC (21:18)
[2024-06-09 21:28] LABS: Glucose - Point of Care 268 mg/dl (70-99)
[2024-06-10] VITALS (17 sets, daily range): BP systolic 87–129; BP diastolic 61–94; BMI 30.5
[2024-06-10] MEDS: NSS 1000 IV (00:07)
--- NOTE | 2024-06-10 00:10 | PTCARENOTE ---
Upon reassessment neurological checks are unchanged. Pt resting comfortably.
[2024-06-10 04:15] LABS: Hematocrit 41.4 % (39.0-52.0); Hemoglobin 14.4 g/dL (13.0-18.0); Mean Corp Hgb Conc. 34.8 g/dL (33.0-37.0); Mean Corpuscular Hgb 31.9 pg (27.0-31.0); Mean Corpuscular Volume 91.8 fL (80.0-94.0); Mean Platelet Volume 10.2 fL (7.4-10.4); Platelet Count 162 10^3/uL (130-400); Red Blood Cell Count 4.51 10^6/uL (4.70-6.10); Red Cell Dist. Width 12.9 % (11.5-14.5); White Blood Cell Count 15.6 10^3/uL (4.8-10.8)
[2024-06-10 04:28] LABS: INR 1.25; PT 16.2 Sec (11.4-14.6)
[2024-06-10 04:29] LABS: APTT 30.1 Sec (23.4-35.0)
[2024-06-10 04:37] LABS: Blood Urea Nitrogen 26 mg/dl (9-20); Calcium 8.7 mg/dl (8.4-10.2); Carbon Dioxide 22 mmol/L (22-30); Chloride 104 mmol/L (98-107); Estimated Creatinine Clearance 75 ml/min; Glucose 189 mg/dl (70-99); Potassium 4.4 mmol/L (3.5-5.1); Sodium 137 mmol/L (135-145); eGFR > 60.00
--- NOTE | 2024-06-10 07:30 | PTCARENOTE ---
Received patient, neuro checks performed at bedside, validated with night RN. BLE pulses per doppler only. Dr Gallagher at the bedside to assess, updated with patient status. New orders received. IVF discontinued. Patient assisted OOB to the chair.
Tolerated well. Oxygen removed and placed on RA, maintaining sats. Arterial line leveled and zeroed, VSS. Afib with Vpaced beats on CM, some AIVR noted. No c/o pain. Voids without difficulty. Tolerating po intake well.
[2024-06-10 07:44] LABS: Glucose - Point of Care 186 mg/dl (70-99)
[2024-06-10] MEDS: NOVOLOG FLEXPEN-HIGH RESISTANCE 2 UNITS SC ×2 (07:45→11:25)
[2024-06-10] MEDS: THERAGRAN 1 TABLET PO (07:46)
[2024-06-10] MEDS: MAGNESIUM OXIDE 500 MG PO (07:46)
[2024-06-10] MEDS: VITAMIN B-12 1000 MCG PO (07:46)
[2024-06-10] MEDS: GLUCOPHAGE 1000 MG PO (07:46)
--- NOTE | 2024-06-10 07:46 | W.PN.VS ---
Addendum entered and electronically signed by Christopher Gallagher MD 06/10/24 09:10:
Seen and examined with AIR TRAFFIC CONTROL EQUIPMENT REPAIRER's. Agree with findings as noted below. Patient without significant complaints. Right neck incision is clean dry and intact. No hematoma. Neurologically no focal deficits. Tongue is midline. Plan/as discussed and
noted below.
Original Note:
Today's Communication / Plan
-
Seen and assessed with Dr. Gallagher
Assessment/Plan
-
POD 1 right carotid bypass with interposition graft
Plan:
-DC A-line
-DC IV fluids
-Regular diet
-P.o. medications
-Out of bed/ambulate
-Likely DC later today
Subjective Data
-
Date of Service: June 10, 2024
Patient seen at bedside today with Dr. Gallagher. Patient offers no complaints at this time. No events overnight. No drips this morning.
Objective Data
-
Vital Signs
Temp Pulse Resp BP Pulse Ox
97.6 F 103 19 118/65 100
06/10/24 03:36 06/10/24 06:15 06/10/24 06:15 06/10/24 06:00 06/10/24 06:15
Intake and Output
06/09/24 06/10/24 06/11/24
06:59 06:59 06:59
Intake Total 1878 / 1878
Output Total 1670 / 1670
Balance 208 / 208
Intake:
Oral fluids 498 / 498
IV fluids (Total) 1380 / 1380
Ns 1380 / 1380
Output:
Urine, Voided 1670 / 1670
Lab Results
06/10/24 04:00
06/10/24 04:00
Calcium 8.7 mg/dl (8.4-10.2) 06/10/24 04:00
Physical Exam
-
AAOx3
No tachypnea on 2 L nasal cannula
Mild tachycardia upper 90s
Neck site clean, dry, intact, flat, no drainage noted
Abdomen soft
Moves all extremities to command
Tongue midline
[2024-06-10] MEDS: COREG 6.25 MG PO (07:47)
[2024-06-10] MEDS: PACERONE 200 MG PO (07:47)
[2024-06-10] MEDS: ALDACTONE 25 MG PO (07:48)
[2024-06-10] MEDS: LASIX 30 MG PO (07:48)
[2024-06-10] MEDS: FARXIGA 10 MG PO (07:48)
[2024-06-10] MEDS: HEPARIN 5000 UNITS SC (07:56)
--- NOTE | 2024-06-10 08:30 | PTCARENOTE ---
Left brachial Apex discontinued, manual pressure held for 5 minutes. No bleeding noted after removal. Tolerated well.
--- NOTE | 2024-06-10 10:48 | CM ---
CM following re: discharge planning.
Reviewed pt's chart, met with pt.
Pt is a 79 year old male, admitted with primary dx of POD 1 right carotid bypass with interposition graft. Per Vascular Surgery, pt likely will be discharged home today. Pt is aware, expressed his agreement and he stated his spouse will transport
home. IMM reviewed, placed on chart, pt has a copy.
Pt reports he lives with spouse split level house, has 2 supportive children. 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 No DME, VN or SNF history.
PCP: Dennis Hidalgo
Pharmacy: [facility].
D/C plan: home no needs. Spouse to transport.
--- NOTE | 2024-06-10 11:16 | W.PN.INTV ---
Today's Communication / Plan
Recommendations
Continue postoperative care
Continue outpatient medication
Discontinue arterial
Discharge plan
Sign off
Assessment
-
79-year-old male with chronic HFrEF status post ICD implant, paroxysmal A-fib, essential hypertension, IDDM, COPD, CAD s/p PCI and CABG admitted to ICU for closer monitoring post carotid artery bypass procedure earlier today.
Status post right carotic endarterectomy 06/09/2024
Tachycardia: Resolved
Assessment and plan:
Postoperative day 1
Patient doing well
Incision is intact without hematoma
No stridor on exam
Increase activity as able
Arterial line has been discontinued
Hodge has been discontinued.
Patient tolerating diet.
-
Increase activity as tolerated
-
Follow blood sugars
Continue outpatient medication
Discharge planning per primary team.
Sign off
Subjective Dataa
Subjective Data
Date of Service:
Date of Service: June 10, 2024
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
Subjective:
Patient offers no complaints
Tolerated breakfast
Ambulate around the room without significant symptoms
Review of Systems
Cardiopulmonary: Dyspnea (n), Dyspnea on Exertion (n) and Cough
GI: Abdominal Pain (n)
Neuro: Headache (n) and Dizziness (n)
Objective Data
Data Reviewed
Vital Signs / I&O / Oxygen:
Vital Signs
Temp Pulse Resp BP Pulse Ox
97.7 F 108 25 126/83 95
06/10/24 07:53 06/10/24 09:00 06/10/24 09:00 06/10/24 08:00 06/10/24 08:45
Intake and Output
06/09/24 06/10/24 06/11/24
06:59 06:59 06:59
Intake Total 1877 560 / 560
Output Total 1669 275 / 275
Balance 208 / 13 285 / 285
SaO2 95
Nasal Cannula flow liters per 2
minute
Physical Exam
General: Comfortable
HEENT: Normocephalic and Other (No stridor on exam)
Cardiovascular: S1-S2
Respiratory: Clear and Non-Labored Respirations
GI: Soft and Non Distended
Neurology: Awake, Oriented, AO x 3 and No Motor Deficits
Skin: Good Color and Other (Cervical incision intact. No hematoma. )
Labs/Micro/Reports
Lab Data
06/10/24 04:00
06/10/24 04:00
Laboratory Results
06/09/24 06/10/24
13:01 04:00
PT 14.8 H 16.2 H
INR 1.11 1.25
APTT 24.6 30.1
[2024-06-10] MEDS: TYLENOL 650 MG PO (11:24)
[2024-06-10 11:57] LABS: Glucose - Point of Care 155 mg/dl (70-99)
--- NOTE | 2024-06-10 12:00 | PTCARENOTE ---
No change in patient assessment. He has been up in the chair for the day. Tolerating po intake, anxious to be discharged home. Neuro checks remain normal. No CP or SOB. Tylenol helped relieve neck discomfort.
--- NOTE | 2024-06-10 12:46 | PTCARENOTE ---
Madai Moore USER EXPERIENCE LEAD at bedside to assess. Patient is cleared for discharge home. Awaiting orders.
--- NOTE | 2024-06-10 14:09 | W.PN.UPDATE ---
Update Note
Progress Note Update
Patient with known past medical history of atrial fibrillation and outpatient documentation noting heart rate in 150s in outpatient setting roughly a week ago. Currently inpatient heart rate 100-110, patient is asymptomatic with stable blood
pressure, respiratory rate, and pulse ox. Reviewed outpatient documentation that stated patient was instructed to start amiodarone and increase his dose of Coreg a week ago when increased heart rate was noted in the outpatient setting, patient is
unsure he did adjust his medication prior to the surgery and did not relay to us with a medication review. Medications were adjusted appropriately, and case was reviewed with his outpatient wire winding machine operator Dr. Walker over Hawkins text, who felt no
additional medication adjustments were required other than reinitiating the amiodarone 200 mg p.o. twice daily and increased dose of Coreg 12.5 mg p.o. twice daily. Reviewed with attending Dr. Christopher Gallagher who agrees patient is stable for discharge to
home
--- NOTE | 2024-06-10 14:17 | W.DS.TRANS ---
DC Summary - Acute Care Physician
-
Discharge Instructions:
Sleep Apnea Risk Intermediate
Discharge Diagnosis/Procedures Right common carotid to internal carotid artery
bypass with 6 mm ringed [place] Propaten graft
Diet As tolerated,Diabetic, Carb Controlled
Activity No strenuous activity
Driving Restrictions Not until seen by your Dr
Bathing Restrictions OK to Shower
Instructions:
Stand-Alone Forms: DC Instr - Vascular OR
Changes to Home Medications: No
Discharge Medications:
DC Medications w/original date entered in [facility]
aspirin 81 mg tablet,delayed release 81 mg PO QPM Blood clot prevention/tx 03/20/17
atorvastatin 80 mg tablet 80 mg PO QPM High cholesterol 12/27/20
cyanocobalamin (vitamin B-12) 1,000 mcg tablet 1,000 mcg PO DAILY Supplement 12/27/20
metformin 1,000 mg tablet 1,000 mg PO BID Diabetes 01/15/21
potassium chloride 10 mEq tablet,extended release 10 meq PO QPM Electrolyte Repletion 08/24/23
insulin glargine 100 unit/mL subcutaneous solution (Lantus U-100 Insulin) 32 unit SC HS Diabetes 10/22/23
apixaban 5 mg tablet (Eliquis) 5 mg PO BID Blood Clot Prevention/Tx 11/23/23
empagliflozin 25 mg tablet (Jardiance) 12.5 mg PO DAILY Diabetes 11/23/23
insulin aspart U-100 100 unit/mL (3 mL) subcutaneous pen (Novolog FlexPen U-100 Insulin aspart) 0 sliding scale dose SC AC Diabetes 11/23/23
therapeutic multivitamin 1 tab PO DAILY Supplement 11/23/23
spironolactone 25 mg tablet 25 mg PO DAILY Blood pressure #30 tabs 11/27/23
furosemide 20 mg tablet 30 mg PO BID Fluid Retention/Swelling 12/24/23
magnesium oxide 500 mg PO DAILY Electrolyte Repletion 12/24/23
amiodarone 200 mg tablet 200 mg PO BID Arrhythmia 06/09/24
carvedilol 12.5 mg tablet (Coreg) 12.5 mg PO BID 06/10/24
Home Medication Changes
Pending Results: No
--- NOTE | 2024-06-10 15:22 | PTCARENOTE ---
Discharge instructions reviewed. Patient and patient verbalized understanding to instructions. Questions answered. Discharge BP 118/85. Patient states that he feels well. Neurologically intact. Denies pain, CP or SOB. Patient to front entrance
via wheelchair accompanied by RN.
--- NOTE | 2024-06-10 15:38 | W.DCSUMMARY ---
Discharge Summary
Discharge Data
Date of Admission: 06/09/24
Date of Discharge: 06/10/24
-
Pending Results: No
Hospital Course
Attending: Christopher Gallagher MD
Consultants: Pulmonary medicine
Allergies: DANN inhibitors, lisinopril, losartan, enalaprilat
Procedure with date: Right common carotid to internal carotid artery bypass with 6 mm ringed [place] Propaten graft on 06/09/[address] Christopher Gallagher
History of present illness: The patient is an 79-year-old male with multiple medical conditions including: carotid stenosis, cardiomyopathy, diabetes, hypertension, UT, pulmonary hypertension, hypercholesterolemia, interstitial pulmonary edema,
atrial fibrillation, abdominal aortic aneurysm, and aortic valve replacement. Patient presented on 06/09/2024 for scheduled procedure with Dr. Gallagher. Patient presented at baseline health with no reports of recent illness or trauma.
Hospital Course: Briefly, the patient underwent scheduled right common carotid to internal carotid artery bypass without complications, and recovered in PACU. Following recovery phase one and two patient was transferred to intensive care unit per
protocol for continued hemodynamic monitoring. Eclectic Doctor consulted to aid in medical management from a critical care perspective. POD #1 (06/10/2024) Patient neurologically intact and tolerating PO diet. Surgical neck site clean, dry, and intact
with suture line well approximated and soft. No evidence of hematoma. Arterial line and IV fluids discontinued. Patient able to ambulate without difficulty or incident. Patient stable for discharge to home.
Prescriptions and follow up appointment are included in the DC summary edgerman note. All instructions were given to the patient in both written and verbal form and the patient expressed understanding.
Discharge Plan
-
Patient Disposition: Home (Routine Discharge)
Discharge Diagnosis/Procedures: Right common carotid to internal carotid artery bypass with 6 mm ringed [place] Propaten graft
Condition: Good
Diet: As tolerated and Diabetic, Carb Controlled
Activity: No strenuous activity
Driving Restrictions: Not until seen by your Dr
Bathing Restrictions: OK to Shower
Activity Restrictions/Additional Instructions:
If you experience severe constant headache, weakness to an arm or leg, change in vision, trouble speaking or any stroke-like symptom, call 911 immediately
If you experience swelling, increased bruising, drainage from neck site, or fever, please call the office
Stand Alone Forms: DC Instr - Vascular OR
Referrals:
Alicia Harris CRNP [Specified Professional Personl] - 07/05/24 8:00 am
Rabia Mar PA-C [Specified Professional Personl] - 06/23/24 1:30 pm
Dennis Hidalgo MD [Family Provider] -
Prescriptions:
Continued
aspirin 81 MG tablet,delayed release (DR/EC)
81 mg PO QPM
atorvastatin 80 MG tablet
80 mg PO QPM
cyanocobalamin (vitamin B-12) 1,000 MCG tablet
1,000 mcg PO DAILY
metformin 1,000 MG tablet
1,000 mg PO BID
potassium chloride 10 mEq Tablet Extended Release
10 meq PO QPM
insulin glargine [Lantus U-100 Insulin] 100 unit/mL solution
32 unit SC HS
therapeutic multivitamin Tablet
1 tab PO DAILY
Eliquis 5 mg Tablet
5 mg PO BID
Jardiance 25 mg Tablet
12.5 mg PO DAILY
insulin aspart U-100 [Novolog FlexPen U-100 Insulin] 100 unit/mL (3 mL) insulin pen
0 sliding scale dose SC AC
spironolactone 25 mg Tablet
25 mg PO DAILY Qty: 30 0RF
magnesium oxide 500 MG tablet
500 mg PO DAILY
furosemide 20 mg Tablet
30 mg PO BID
amiodarone 200 mg Tablet
200 mg PO BID
carvedilol [Coreg] 12.5 mg Tablet
12.5 mg PO BID
Discharge Orders:
Discharge Patient (As Directed); Ordered 06/10/24
Ordered By: Madai Moore
Discharge Date and Time
Print Language: [id number]
== END 2024-06-10 15:49 | disposition home or self-care (01) | DRG 38 ==
LOC: ICU 06:14
PROVIDERS: Nurse Practitioner; ADMITTING PHYSICIAN Surgery Vascular Surgery; CONSULT PHYSICIAN Internal Medicine Critical Care Medicine; FAMILY PHYSICIAN Family Medicine
PROC: 031 Upper Arteries, Bypass (ICD-10-PCS; 2024-06-09)
PROC: 03CH0ZZ Extirpation of Matter from Right Common Carotid Artery, Open Approach (ICD-10-PCS; 2024-06-09)
PROC: 03CK0ZZ Extirpation of Matter from Right Internal Carotid Artery, Open Approach (ICD-10-PCS; 2024-06-09)
DX: I65.21 Occlusion and stenosis of right carotid artery (principal); I42.9 Cardiomyopathy, unspecified; I50.22 Chronic systolic (congestive) heart failure; F20.9 Schizophrenia, unspecified; I11.0 Hypertensive heart disease with heart failure; I25.10 Atherosclerotic heart disease of native coronary artery without angina pectoris; I44.7 Left bundle-branch block, unspecified; E11.9 Type 2 diabetes mellitus without complications; E78.00 Pure hypercholesterolemia, unspecified; I48.0 Paroxysmal atrial fibrillation; J44.9 Chronic obstructive pulmonary disease, unspecified; R00.0 Tachycardia, unspecified; D72.829 Elevated white blood cell count, unspecified; I71.40 Abdominal aortic aneurysm, without rupture, unspecified; I27.20 Pulmonary hypertension, unspecified; I25.2 Old myocardial infarction; Z88.8 Allergy status to other drugs, medicaments and biological substances; Z95.1 Presence of aortocoronary bypass graft; Z95.2 Presence of prosthetic heart valve; Z95.810 Presence of automatic (implantable) cardiac defibrillator; Z98.61 Coronary angioplasty status; Z79.4 Long term (current) use of insulin; Z79.01 Long term (current) use of anticoagulants; Z79.84 Long term (current) use of oral hypoglycemic drugs
CPT/HCPCS: 88305; 35601; 36415; 71045; 71046; 80048; 82962; 85025; 85027; 85610; 85730; 86850; 86900; 86901; 93005; 95938; 95941; 95955; C1768

== ENCOUNTER 2024-06-29 10:30 | Inpatient (IN) | payer OTHER, SELFPAY ==
[2024-06-29] VITALS (13 sets, daily range): BP systolic 98–117; BP diastolic 69–86; BMI 30.5
--- NOTE | 2024-06-29 08:54 | ED.GENMED ---
History of Present Illness
<Yanet Tate MD, Resident - Last Filed: 06/29/24 14:52>
General
Chief Complaint: Breathing Problem
Source: patient and family
Time Seen by Provider: 06/29/24 08:53
History of Present Illness
History of Present Illness:
This is a 79 year old male patient with an extensive cardiovascular PMH of chronic HFrEF status post ICD implant, paroxysmal A-fib, essential hypertension, IDDM, COPD, CAD s/p PCI and CABG who presented to the ED with concerns of SOB and chest pain.
He recently underwent a right carotid bypass on 06/09 with . He states that his shortness of breath has started after his surgery and is exertional (finds difficulty in walking short distances). He also had dull chest pain that was continuous,
rating it as a 2/10 which is not associated with any palpitations, dizziness or headaches. He denies any fever, chills or swellinging in lower extremities. He has not noticed any bleeding or had any pain with his vascular surgical site.
Past History
<Yanet Tate MD, Resident - Last Filed: 06/29/24 14:52>
Past History
ED Past Medical History: Arrthythmia, CAD, CHF, HTN and NIDDM
ED Past Surgical History: Cardiac
Social History
Tobacco: Smoker
Alcohol: Former
Drug: None
Personal:
Living: with family
Employment: Retired
Review of Systems
<Yanet Tate MD, Resident - Last Filed: 06/29/24 14:52>
Review of Systems
Constitutional: Denies fever or chills
Respiratory: Reports trouble breathing
Cardiac: Reports chest pain; Denies palpitations
ABD/GI: Denies abdominal pain, nausea or vomiting
: Denies dysuria
Musculoskeletal: Denies edema
Neurological: Denies dizzy or headache
Phy Exam
<Yanet Tate MD, Resident - Last Filed: 06/29/24 14:52>
General Physical Exam
General Presentation: well appearing and no apparent distress
Cardiovascular Exam
Cardiovascular Exam: regular rate/rhythm and no murmur
Heart Sounds: normal
Pulmonary Exam
Pulmonary Exam: generalized wheezing
Breath Sounds: Crackles: generalized
Gastrointestinal Exam
Gastrointestinal Exam: non tender, soft and non distended
Neurological Exam
Neurological Exam: oriented x3
Musculoskeletal Exam
Musculoskeletal Exam: no edema
Skin Exam
Skin Exam: warm/dry
Psychiatric Exam
Psychiatric Exam: normal mood/affect
Scores
<Yanet Tate MD, Resident - Last Filed: 06/29/24 14:52>
Heart Failure Risk
Heart Failure Risk Score: Yes
History of Stroke or TIA: No
History of intubation for respiratory distress: No
Heart rate on ED arrival >/= 110: No
SaO2 <90% on arrival on room air: No
HR >/=110 during 3min walk test (or too ill to perform test): No
ECG has acute ischemic changes: No
Urea >/=12mmol/L (BUN 33.6mg/dL): No
Serum CO2>/=35mmol/L: No
Troponin I or T elevated to VA Level (0.4mg/dL): Yes
NT-proBNP >/=5,000ng/L (5,000pg/ml): Yes
HF Risk Score: 3
Admission Status: HIGH RISK 15.9% Consider SNF treatment or admission to hospital
Course
<Yanet Tate MD, Resident - Last Filed: 06/29/24 14:52>
Orders/Labs/Results
Orders:
Orders
06/29/24 08:34
EKG [Electrocardiogram (*1)] Urgent
Reason for Study: Chest Pain
EKG- Treatment ONCE
06/29/24 09:04
Cardiac Monitoring- Treatment ONCE
IV Insert/Care/Rem.- Treatment PRN
06/29/24 09:15
Interrogate Pacemaker- Treatment ONCE
CR Chest - 2 Views Urgent
Comment:
Reason For Exam: sob
06/29/24 09:18
Complete Blood Count/With Diff Urgent
Comprehensive Metabolic Panel Urgent
Pro-BNP [NT-proBNP] Urgent
Troponin I Urgent
06/29/24 09:21
0.9% Sodium Chloride 250 ml [Nss] 250 ml IV BOLUS
06/29/24 10:04
EKG- Treatment ONCE
06/29/24 10:15
Admit/Transfer Patient As Directed
Co-Sign Provider:
Level of Care: Inpatient admission
Assign to:: IVU
Physician / Group: Hospitalist
Diagnosis: Heart disease
Reason for Hospitalization: .
Expected length of stay greater than two midnights?: Yes
ELOS- Estimated Length of Stay in days: 3
I certify the patient meets the requirements for IP care: Yes
PRN Pain Medication Management As Directed
May give lesser potent ordered pain med per pt: Yes
preference::
Protocol:: Medication orders for pain may be administered in a
manner that supports deferring to patient preference
when the pt is:
- Requesting an ordered lesser potent pain medication.
Least to most potent pain medications are defined
as: acetaminophen < NSAID < tramadol < opioids
(morphine, oxycodone, hydromorphone).
- Requesting a lesser dose of the same medication IF
ORDERED.
- Requesting a less intrusive route of administration
if both routes are prescribed by the provider (PO <
IV).
11/26/24 12:00
Electrocardiogram (*1) Urgent
Reason for Study: Heart Failure, Left
06/29/24 12:04
Troponin I Urgent
07/01/24 11:00
DC Protocol for Telemetry ONCE
Abnormal Lab Results
06/29/24
09:18
RBC 4.51 L 10^6/uL
(4.70-6.10)
MCV 97.3 H fL
(80.0-94.0)
MCH 31.9 H pg
(27.0-31.0)
MCHC 32.8 L g/dL
(33.0-37.0)
RDW 16.8 H %
(11.5-14.5)
Absolute Neuts (auto) 6.8 H 10^3/uL
(1.4-6.5)
Absolute Monos (auto) 0.9 H 10^3/uL
(0.1-0.6)
Lymphocytes % 17.7 L %
(20.5-51.1)
BUN 40 H mg/dl
(9-20)
Creatinine 1.7 H mg/dL
(0.7-1.3)
Glucose 138 H mg/dl
(70-99)
Troponin I 0.063 H* ng/ml
06/29/24 09:18
06/29/24 09:18
Vital Signs
Initial and Last Documented VS:
Initial Vital Signs
Temp Pulse Resp BP Pulse Ox
94.4 F L 105 16 109/73 99
06/29/24 08:45 06/29/24 08:45 06/29/24 08:45 06/29/24 08:45 06/29/24 08:45
Last Documented Vital Signs
Temp Pulse Resp BP Pulse Ox
97.6 F 108 21 102/77 94
06/29/24 09:40 06/29/24 14:30 06/29/24 14:30 06/29/24 14:22 06/29/24 14:30
<Hanh Paris MD - Last Filed: 06/29/24 10:08>
Orders/Labs/Results
Orders:
Orders
06/29/24 08:34
EKG [Electrocardiogram (*1)] Urgent
Reason for Study: Chest Pain
EKG- Treatment ONCE
06/29/24 09:04
Cardiac Monitoring- Treatment ONCE
IV Insert/Care/Rem.- Treatment PRN
06/29/24 09:15
Interrogate Pacemaker- Treatment ONCE
CR Chest - 2 Views Urgent
Comment:
Reason For Exam: sob
06/29/24 09:18
Complete Blood Count/With Diff Urgent
Comprehensive Metabolic Panel Urgent
Pro-BNP [NT-proBNP] Urgent
Troponin I Urgent
06/29/24 09:21
0.9% Sodium Chloride 250 ml [Nss] 250 ml IV BOLUS
06/29/24 10:04
EKG- Treatment ONCE
06/29/24 10:15
Admit/Transfer Patient As Directed
Co-Sign Provider:
Level of Care: Inpatient admission
Assign to:: IVU
Physician / Group: Hospitalist
Diagnosis: Heart disease
Reason for Hospitalization: .
Expected length of stay greater than two midnights?: Yes
ELOS- Estimated Length of Stay in days: 3
I certify the patient meets the requirements for IP care: Yes
PRN Pain Medication Management As Directed
May give lesser potent ordered pain med per pt: Yes
preference::
Protocol:: Medication orders for pain may be administered in a
manner that supports deferring to patient preference
when the pt is:
- Requesting an ordered lesser potent pain medication.
Least to most potent pain medications are defined
as: acetaminophen < NSAID < tramadol < opioids
(morphine, oxycodone, hydromorphone).
- Requesting a lesser dose of the same medication IF
ORDERED.
- Requesting a less intrusive route of administration
if both routes are prescribed by the provider (PO <
IV).
06/29/24 12:00
Electrocardiogram (*1) Urgent
Reason for Study: Heart Failure, Left
06/29/24 12:04
Troponin I Urgent
07/01/24 11:00
DC Protocol for Telemetry ONCE
Abnormal Lab Results
06/29/24
09:18
RBC 4.51 L 10^6/uL
(4.70-6.10)
MCV 97.3 H fL
(80.0-94.0)
MCH 31.9 H pg
(27.0-31.0)
MCHC 32.8 L g/dL
(33.0-37.0)
RDW 16.8 H %
(11.5-14.5)
Absolute Neuts (auto) 6.8 H 10^3/uL
(1.4-6.5)
Absolute Monos (auto) 0.9 H 10^3/uL
(0.1-0.6)
Lymphocytes % 17.7 L %
(20.5-51.1)
BUN 40 H mg/dl
(9-20)
Creatinine 1.7 H mg/dL
(0.7-1.3)
Glucose 138 H mg/dl
(70-99)
Troponin I 0.063 H* ng/ml
06/29/24 09:18
06/29/24 09:18
Vital Signs
Initial and Last Documented VS:
Initial Vital Signs
Temp Pulse Resp BP Pulse Ox
94.4 F L 105 16 109/73 99
06/29/24 08:45 06/29/24 08:45 06/29/24 08:45 06/29/24 08:45 06/29/24 08:45
Last Documented Vital Signs
Temp Pulse Resp BP Pulse Ox
97.6 F 108 21 102/77 94
06/29/24 09:40 06/29/24 14:30 06/29/24 14:30 06/29/24 14:22 06/29/24 14:30
<Yanet Tate MD, Resident - Last Filed: 06/29/24 14:52>
MDM/Problems Addressed
Differential Diagnosis Includes:
Acute exacerbation of CHF, Pneumonia, Atelectasis, ACS, Acute exacerbation of COPD, Atrial Fibrillation
MDM/Problems Addressed:
CBC/CMP/CXR/Trop/BNP ordered. Likely exacerbation of of CHF due to CXR findings of cardiomegaly, elevated ProBNP and clinical picture of patient. Patient will be admitted to hospitalist service with cardiology consulted.
<Yanet Tate MD, Resident - Last Filed: 06/29/24 14:52>
*Critical Care Note
Total Time (30-74mins, 75-104mins- exclusive of procedures): Not Applicable
ED Attending Note
<Yanet Tate MD, Resident - Last Filed: 06/29/24 14:52>
-
Portions of this chart may have been created with voice recognition software.� Occasional wrong word or��sound alike� substitutions may have occurred due to the inherent limitations of voice recognition software.
<Hanh aPris MD - Last Filed: 06/29/24 10:08>
ED Attending Note
Patient seen and examined by attending physician: Yes
I performed a history and physical exam of patient and discussed management with resident, I reviewed resident's note and agree with documented findings and plan of care.: Yes
ED Attending Note:
I have seen and evaluated the patient with a [id number] encounter. I have spoken to the [resident] and involved in the medical history, the physical exam, medical decision making.
Evaluation and management service: agree unless noted differently below.
Results interpretation: agree unless noted differently below.
Patient is a 79-year-old man with extensive past medical history most notable for recent carotid artery bypass on June [address] Gallagher, HFrEF with a EF of 10 to 15% with ICD, CAD with stents, aortic stenosis status post valve replacement presenting
to the emergency department with shortness of breath. Patient states that since his surgery he has been having progressive weakness. He has exertional chest pain and shortness of breath. The shortness of breath is also notable when he is lying
flat. Denies any palpitations. No nausea vomiting diarrhea. No upper respiratory symptoms. He denies any recent ICD shocks. He did follow-up vascular surgery last week and everything was healing well. He has been compliant with his medications
including Eliquis and Lasix. He does feel dehydrated.
GENERAL: in no acute distress
HEENT: normocephalic, extraocular movements intact, dry oral mucosa
NECK: normal inspection
RESPIRATORY: no respiratory distress, fine crackles at bases with intermittent wheeze
CARDIOVASCULAR: regular rate and rhythm
ABDOMEN/: soft, non-distended, non-tender to palpation, no rebound or guarding
EXTREMITIES: non-tender, no edema/swelling
NEUROLOGIC: awake and alert, moves all extremities
SKIN: warm
79-year-old man presenting to the emergency department with weakness shortness of breath and chest pain. Vitals are notable for heart rate in the low 100s and blood pressure of systolic in the 98. Exam does show dry oral mucosa with fine crackles
at both bases. Concern for CHF exacerbation versus atypical ACS versus arrhythmia or metabolic derangement. Considered PE though less likely as patient has been compliant with his Eliquis and he does have crackles at both his bases suggesting of
an alternative etiology of his symptoms. Will check blood work chest x-ray and interrogate pacemaker. EKG per my interpretation AV paced rhythm. Given patient's dehydration but severely reduced EF will give 250 cc bolus of fluid. Anticipate
admission.
Received a call from [facility]. Patient's device does suggest some volume overload. He is also been in atrial arrhythmia since June 06 with some episodes of tachycardia greater than 100. Blood work does show elevated BNP as well as elevated
troponin. He does have prior elevated troponin. Chest x-ray per my interpretation with some vascular congestion. Will hold off on diuretic as patient is slightly hypotensive and he did receive IV fluids. I did discuss with cardiology and will
obtain delta troponin to evaluate for NSTEMI. Discussed with hospitalist who excepted patient to their service
Discharge Plan
Departure
Patient Disposition: Admit
Date of Disposition: 06/29/24
Time of Disposition: 10:08
Presentation/result/management discussed w/ accepting MD/DO: Hospitalist
Discharge Problem:
CHF (congestive heart failure)
Interventions
Interventions:
*Risk Screen - Suicide Last Done: 06/29/24 09:20
*General Assessment Last Done: 06/29/24 09:20
*Neglect/Abuse Screening Last Done: 06/29/24 09:20
ED- Fall Risk Assessment Last Done: 06/29/24 09:20
*ED COVID-19 Vaccine History Last Done: 06/29/24 09:20
ED- Cardiac Assessment Last Done: 06/29/24 09:20
ED- Pulmonary Assessment Last Done: 06/29/24 09:20
--- NOTE | 2024-06-29 09:00 | EDRN ---
ED resident MD DR. Adele Menchaca in room w/ pt at this time.
[2024-06-29 09:31] LABS: % Basophils 0.4 % (0-2); % Immature Granulocytes 0.3 % (0-0.5); % Lymphocytes 17.7 % (20.5-51.1); % Neutrophils 71.6 % (42.2-75.2); Absolute Eosinophils 0.1 10^3/uL (0-0.7); Absolute Lymphocytes 1.7 10^3/uL (1.2-3.4); Absolute Monocytes 0.9 10^3/uL (0.1-0.6); Absolute Neutrophils 6.8 10^3/uL (1.4-6.5); Hematocrit 43.9 % (39.0-52.0); Hemoglobin 14.4 g/dL (13.0-18.0); Mean Corp Hgb Conc. 32.8 g/dL (33.0-37.0); Mean Corpuscular Hgb 31.9 pg (27.0-31.0); Mean Corpuscular Volume 97.3 fL (80.0-94.0); Mean Platelet Volume 9.6 fL (7.4-10.4); Nucleated Red Blood Cells % 0 % (-); Platelet Count 225 10^3/uL (130-400); Red Blood Cell Count 4.51 10^6/uL (4.70-6.10); Red Cell Dist. Width 16.8 % (11.5-14.5); White Blood Cell Count 9.4 10^3/uL (4.8-10.8)
[2024-06-29 09:51] LABS: ALT (SGPT) 27 U/L (0-50); AST (SGOT) 41 U/L (17-59); Albumin 3.8 g/dl (3.5-5.0); Alkaline Phosphatase 119 U/L (38-126); Blood Urea Nitrogen 40 mg/dl (9-20); Carbon Dioxide 27 mmol/L (22-30); Chloride 100 mmol/L (98-107); Estimated Creatinine Clearance 45 ml/min; Glucose 138 mg/dl (70-99); Potassium 4.7 mmol/L (3.5-5.1); Sodium 140 mmol/L (135-145); Total Bilirubin 1.3 mg/dl (0.2-1.3); Total Protein 6.7 g/dl (6.3-8.2); eGFR 41.01
[2024-06-29 09:59] LABS: NT-proBNP 12300 pg/ml; Troponin I 0.063 ng/ml
--- NOTE | 2024-06-29 10:13 | EDRN ---
[facility] pharmacy informatics specialist in room w/ pt at this time.
--- NOTE | 2024-06-29 10:14 | HPS.HSE ---
Family Physician
-
Family Physician: Dennis Hidalgo
Chief Complaint
-
Weakness and exertional sob over last few weeks or days
History of Present Illness
79 years old male who presented with weakness. Patient reported that his weakness was generalized and nonfocal. He feels very fatigued if walking few steps or standing to brush his teeth. He also noted exertional shortness of breath but no cough
or chest pain. In the ER. He was noted to have hypotension was given IV fluid. His creatinine was 1.7 from normal baseline. Patient takes blood pressure medications in addition to diuretics. He had right carotid artery bypass with a graft by
Dr. Gallagher on08/09/23 and since discharged back home, he started to feel weak. No fevers.
Medical History
Past Medical History
Past Medical History: Reports Other (Hyperlipidemia, heart failure, valvular heart disease, CAD, PAD, A-fib, COPD, diabetes, pulmonary hypertension, renal insufficiency)
Past Surgical History: Reports Other (Recent right carotid artery bypass on June 09)
Social History
Tobacco: Former Smoker
Alcohol: Occasional
Drug: None
Personal:
Living: With Family
Employment: Retired
Family History
Family History: Diabetes
Allergies / Home Medications
Allergies reflects when Allergies were last updated in [facility].
Home Medications with original date entered in [facility]
Allergy/Medication List:
Allergies
Allergy/AdvReac Type Severity Reaction Status Date / Time
DANN Inhibitors Allergy Swelling/an Verified 06/29/24 08:45
gioedema
enalaprilat [From Vasotec] Allergy angioedema Verified 06/29/24 08:45
lisinopril Allergy angioedema Verified 06/29/24 08:45
losartan Allergy angioedema Verified 06/29/24 08:45
Home Medications
aspirin 81 mg tablet,delayed release 81 mg PO QPM Blood clot prevention/tx 03/20/17
atorvastatin 80 mg tablet 80 mg PO QPM High cholesterol 12/27/20
cyanocobalamin (vitamin B-12) 1,000 mcg tablet 1,000 mcg PO DAILY Supplement 12/27/20
metformin 1,000 mg tablet 1,000 mg PO BID Diabetes 01/15/21
potassium chloride 10 mEq tablet,extended release 10 meq PO QPM Electrolyte Repletion 08/24/23
insulin glargine 100 unit/mL subcutaneous solution (Lantus U-100 Insulin) 20 unit SC HS Diabetes 10/22/23
apixaban 5 mg tablet (Eliquis) 5 mg PO BID Blood Clot Prevention/Tx 11/23/23
empagliflozin 25 mg tablet (Jardiance) 12.5 mg PO DAILY Diabetes 11/23/23
insulin aspart U-100 100 unit/mL (3 mL) subcutaneous pen (Novolog FlexPen U-100 Insulin aspart) 5 unit SC BID@0800,1200 Diabetes 11/23/23
therapeutic multivitamin 1 tab PO DAILY Supplement 11/23/23
spironolactone 25 mg tablet 25 mg PO DAILY Blood pressure #30 tabs 11/27/23
furosemide 20 mg tablet 30 mg PO BID Fluid Retention/Swelling 12/24/23
magnesium oxide 500 mg PO DAILY Electrolyte Repletion 12/24/23
amiodarone 200 mg tablet 200 mg PO BID Arrhythmia 06/09/24
carvedilol 12.5 mg tablet (Coreg) 12.5 mg PO BID Blood Pressure 06/10/24
acetaminophen 325 mg tablet (Tylenol) 650 mg PO Q4HPRN PRN mild pain 06/29/24
insulin aspart U-100 100 unit/mL subcutaneous solution (Novolog U-100 Insulin aspart) 7 unit SC QPM Diabetes 06/29/24
Review of Systems
-
History Source: Patient
A 12 point ROS was completed and negative except as noted: Yes
Constitutional: Reports Fatigue; Denies Fever
EENT: Denies Sore Throat
Respiratory: Reports Trouble Breathing; Denies Cough
Cardiac: Denies Chest Pain
Abdomen/GI: Denies Abdominal Pain
: Denies Dysuria
Musculoskeletal: Denies Joint Pain or Edema
Neurological: Reports Weakness; Denies Headache
Endocrine: Denies Temp Intolerance
Hematologic/Lymphatic: Denies Bruising
Psych: Denies Panic Disorder
Physical Exam
Vital Signs
Vital Signs
Temp Pulse Resp BP Pulse Ox
97.6 F 105 23 99/75 93
06/29/24 09:40 06/29/24 10:01 06/29/24 10:01 06/29/24 10:01 06/29/24 09:30
Physical Exam
General: No Apparent Distress and Appears Chronically Ill
HEENT: Anicteric and Moist mucous membranes
Respiratory: Clear; No Wheezes or Rales
Cardiac: S1/S2 and Tachycardia
GI: Soft and Non Tender
Genito-urinary: No costovertebral tender; No Hodge
Musculoskeletal: No Clubbing, No Cyanosis and No Edema
Skin: Warm; No Jaundice
Neuro: AO x 3 and Nonfocal/grossly intact
Psych: Calm and Intact Judgment/Insight
Laboratory Results
-
06/29/24 09:18
06/29/24 09:18
Laboratory Results
Total Bilirubin 1.3 mg/dl (0.2-1.3) 06/29/24 09:18
AST 41 U/L (17-59) 06/29/24 09:18
ALT 27 U/L (0-50) 06/29/24 09:18
Alkaline Phosphatase 119 U/L (38-126) 06/29/24 09:18
Troponin I 0.063 ng/ml H* 06/29/24 09:18
Impression/Plan
-
79 years old male presented with fatigue and exertional shortness of breath
# Progressive shortness of breath. No hypoxia. Not in respiratory distress on presentation, suspect secondary to acute on chronic heart failure with reduced ejection fraction but will be also important to rule out other causes of shortness of
breath as ILD/thromboembolism.
Last echocardiogram in March 2024 showed LVEF 35 to 40% ( EF % improved per records)
Admit the patient to IVU
With low blood pressure, we might need to use a pressure support to put some diuretic treatment. Patient seems to have mild increment in his weight. No significant pulmonary crackles on examination. No leg edema.
Will check ambulatory oxygen.
Incentive spirometry
No signs of pneumonia/pulmonary infection.
Patient is compliant with Eliquis treatment but Eliquis was held for carotid surgery. He has impaired renal function. Will do bilateral lower extremity ultrasound for DVT and lung perfusion scan.
Will follow-up. Will discuss with bookie if need to repeat echocardiogram.
#Hypotension.
Admit the patient to the hospital. Patient takes Coreg, Lasix, Aldactone. No signs of active infection.
Will continue with medication as possible with lower doses. He might need inotropic support
Will reassess. Will try to avoid further IV fluid due to underlying cardiomyopathy
# Tachycardia, paced rhythm. Known to have persistent atrial fibrillation.
Continue carvedilol. Monitor blood pressure.
# Diabetes.
Continue with insulin therapy. Avoid hypoglycemia.
# PAD, recent right carotid bypass with a graft. Continue aspirin therapy
#Status post BiV ICD implant [employer] in December 2023
#COPD
No wheezes, check ambulatory oxygen level
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
# Chronic left bundle branch block
# Status post bioprosthetic AVR in 2017 for severe aortic stenosis
# Coronary artery disease, chronic positive troponin.
Total time spent to see the patient, examine the patient, review data and lab results, discuss treatment plan with patient, ER doctor, nursing care around 75 minutes
[2024-06-29] MEDS: NSS 250 IV (10:15)
--- NOTE | 2024-06-29 11:58 | EDRN ---
Anila ESCALERA w/ cardiology in room w/ pt at this time.
--- NOTE | 2024-06-29 12:08 | EDRN ---
Repeat troponin drawn and sent at this time.
--- NOTE | 2024-06-29 12:12 | CON.CAR ---
Addendum entered and electronically signed by Shannen Abarca MD 06/29/24 17:56:
I saw and examined the patient.
The Drama Teacher's note was reviewed and I agree with the note.
Comment: Discussed with patient and his at great length. He has been feeling short of breath. Exam consistent with heart failure with lower extremity edema and crackles at the bases. proBNP is 12,000.
He recently underwent carotid artery bypass 06/09.
He had recurrence of atrial fibrillation June 09 and then converted to sinus rhythm. He now has persistently been in atrial fibrillation since 06/25. Device was interrogated. He is on outpatient Eliquis and amiodarone.
Plan at this time:
-Diuresis with IV Lasix, follow input/output and daily weights.
-Follow electrolytes and renal function in the setting of chronic kidney disease
-Heart failure teaching with sodium and fluid restricted diet. He has been drinking more water than usual.
-Troponins are chronically elevated and flat. Likely non-HI troponin elevation.
-TSH in a.m.
-Continue rate control of atrial fibrillation. Appears that he is currently breaking through amiodarone which he is on for atrial fibrillation. Eventually discussion with electrophysiology regarding further plan for recurrent atrial fibrillation.
Continue anticoagulation.
-VQ scan ordered by primary service is pending, ultrasound lower extremities negative for DVT
Original Note:
Consultation
Consultation Request
Date/Time Consultation Performed: 06/29/24
Requesting Provider: Dr. Christian
Performing Provider: Anila Pak PA-C for Dr. Shannen Abarca
Reason for Consultation: CHF
Medical History
-
Chief Complaint: SOB
History of Present Illness:
Patient is a 79 yo M with chronic heart failure with reduced EF, chronic renal insufficiency, paroxysmal atrial fibrillation with history of amiodarone therapy, previously stopped due to abnormal LFTs/bradycardia/prolonged QT, however resumed
12/2023, chronic anticoagulation with Eliquis, she is not mixed ischemic and nonischemic cardiomyopathy and chronic left bundle branch block status post Medtronic BiV ICD 12/2023, CAD status post RCA PCI in 2005 and CABG x 1 and bioprosthetic AVR in
2017, PAD status post right lower extremity bypass surgery, COPD who underwent right common carotid to internal carotid bypass surgery 06/09/2024. We were not consulted during that admission. He reports for several days after discharge he felt
well, however since then has noted worsening shortness of breath and weakness. Denies weight changes, fevers chills. Does report lower extremity edema. Also reports he feels chest pains 'around his heart' as though it is 'pushing on his heart'.
He also feels that there is something 'weird' with his defibrillator. reports that since his surgery he has been drinking a lot�states that his fluid restriction is 64 ounces, however he has been drinking close to double this daily. proBNP
12,300. Chest x-ray with evidence of mild CHF. Taking po lasix 30mg BID. Cardiology consulted for evaluation.
PMH:
Chronic heart failure with reduced ejection fraction
Chronic renal insufficiency likely secondary to cardiorenal syndrome
Paroxysmal atrial fibrillation
s/p TARA/CV 11/24/23
Bradycardia/prolonged QTc post CV
Chronic amiodarone therapy - with history of abnormal LFTs
Chronic OAC with eliquis
Left bundle branch block, chronic
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
s/p Medtronic BiV ICD 12/24/23
s/p ICD wound revision 01/14/24
Coronary artery disease status post RCA PCI in 2005 and SVG to PDA in 2017 with recent cardiac catheterization noting significant mid RCA disease with RPDA filling through the widely patent SVG October 22, 2023
Severe s/p bioprosthetic AVR 2016
Hypertension
Hyperlipidemia
Left carotid CEA 2005
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
PAD s/p RLE bypass surgery
COPD
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
Past Medical History
Past Medical History: Other (See HPI)
Past Surgical History: Other (See HPI)
Social History
Tobacco: Former Smoker
Alcohol: None
Drug: None
Personal:
Living: With Family
Employment: Retired
Family History
Family History: CAD, Diabetes and Hypertension
Allergies / Home Medications
Allergy/AdvReac Type Severity Reaction Status Date / Time
DANN Inhibitors Allergy Swelling/an Verified 06/29/24 08:45
gioedema
enalaprilat [From Vasotec] Allergy angioedema Verified 06/29/24 08:45
lisinopril Allergy angioedema Verified 06/29/24 08:45
losartan Allergy angioedema Verified 06/29/24 08:45
�Medication �Instructions �Recorded �Confirmed �Type
aspirin 81 mg tablet,delayed 81 mg PO QPM Blood clot 03/20/17 06/29/24 History
release prevention/tx
atorvastatin 80 mg tablet 80 mg PO QPM High cholesterol 12/27/20 06/29/24 History
cyanocobalamin (vitamin B-12) 1,000 mcg PO DAILY Supplement 12/27/20 06/29/24 History
1,000 mcg tablet
metformin 1,000 mg tablet 1,000 mg PO BID Diabetes 01/15/21 06/29/24 History
potassium chloride 10 mEq 10 meq PO QPM Electrolyte Repletion 08/24/23 06/29/24 History
tablet,extended release
insulin glargine 100 unit/mL 20 unit SC HS Diabetes 10/22/23 06/29/24 History
subcutaneous solution (Lantus
U-100 Insulin)
apixaban 5 mg tablet (Eliquis) 5 mg PO BID Blood Clot 11/23/23 06/29/24 History
Prevention/Tx
empagliflozin 25 mg tablet 12.5 mg PO DAILY Diabetes 11/23/23 06/29/24 History
(Jardiance)
insulin aspart U-100 100 unit/mL 5 unit SC BID@0800,1200 Diabetes 11/23/23 06/29/24 History
(3 mL) subcutaneous pen (Novolog
FlexPen U-100 Insulin aspart)
therapeutic multivitamin 1 tab PO DAILY Supplement 11/23/23 06/29/24 History
spironolactone 25 mg tablet 25 mg PO DAILY Blood pressure #30 11/27/23 06/29/24 Rx
tabs
furosemide 20 mg tablet 30 mg PO BID Fluid 12/24/23 06/29/24 History
Retention/Swelling
magnesium oxide 500 mg PO DAILY Electrolyte 12/24/23 06/29/24 History
Repletion
amiodarone 200 mg tablet 200 mg PO BID Arrhythmia 06/09/24 06/29/24 History
carvedilol 12.5 mg tablet (Coreg) 12.5 mg PO BID Blood Pressure 06/10/24 06/29/24 History
acetaminophen 325 mg tablet 650 mg PO Q4HPRN PRN mild pain 06/29/24 06/29/24 History
(Tylenol)
insulin aspart U-100 100 unit/mL 7 unit SC QPM Diabetes 06/29/24 06/29/24 History
subcutaneous solution (Novolog
U-100 Insulin aspart)
Review of Systems
-
History Source: Patient and Family
All other systems: Negative unless noted
Physical Exam
Vital Signs
Temp Pulse Resp BP Pulse Ox
97.6 F 107 23 100/69 96
06/29/24 09:40 06/29/24 11:45 06/29/24 11:45 06/29/24 11:00 06/29/24 11:45
Lab Results
06/29/24 09:18
06/29/24 09:18
Troponin I 0.063 ng/ml H* 06/29/24 09:18
Tdw-N-Opemgxtfnge Pept 54209 pg/ml 06/29/24 09:18
Physical Exam
General: No Apparent Distress and Comfortable
HEENT: Normocephalic, Anicteric and Moist Mucous Membranes
Respiratory: Crackles and Non Labored Respirations
Cardiac: S1/S2, Regular Rhythm and Other (tachy)
GI: Soft, Non Tender, Non Distended and Normal Bowel Sounds
Musculoskeletal: No Clubbing, No Cyanosis and Edema (1+ of B/L LE)
Skin: Warm and Dry
Neuro: AO x 3
Impression / Plan
-
Primary Chip Frier: Dr. Yoo
Assessment:
Presentation with SOB
Acute on chronic heart failure with reduced ejection fraction
Acute on chronic renal insufficiency likely secondary to cardiorenal syndrome
Elevated troponin, suspected nonischemic myocardial injury
Paroxysmal atrial fibrillation
s/p TARA/CV 11/24/23
Bradycardia/prolonged QTc post CV
Chronic amiodarone therapy - with history of abnormal LFTs
Chronic OAC with eliquis
Left bundle branch block, chronic
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
s/p Medtronic BiV ICD 12/24/23
s/p ICD wound revision 01/14/24
Coronary artery disease status post RCA PCI in 2005 and SVG to PDA in 2016 with recent cardiac catheterization noting significant mid RCA disease with RPDA filling through the widely patent SVG October 22, 2023
Severe s/p bioprosthetic AVR 2016
Hypertension
Hyperlipidemia
Left carotid CEA 2005
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
PAD s/p RLE bypass surgery
COPD
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
Echo 10/14/2023: Normal LV size with severely reduced LV systolic function, EF estimated 10 to 15%. Apical akinesis. Mild LVH. Grade 3 diastolic dysfunction with increased filling pressures. Mild MR. #27 bovine aortic valve with peak/mean
gradient 9/5 mmHg with trace AI. No significant TR and unable to estimate right heart pressures.
ECHO 03/19/24: EF 35 to 40%, mild concentric LVH, well-seated, #27 bovine aortic valve replacement with peak/mean gradients 13/6 mmHg, trace TR, PAP 39 mmHg, trace NM
Plan:
-Patient underwent right common carotid to internal carotid bypass surgery 06/09/2024. incision site appears well healing. Over the last 2 weeks, reports worsening shortness of breath. reports significant oral intake
-proBNP 12,300. Chest x-ray with mild CHF. Will diurese with 40 mg IV Lasix twice daily. He has history of cardiorenal syndrome with CHF in the past. Creatinine 1.7 on 06/29. Follow closely with diuresis
-Last echo from 03/2024 with results as above, EF 35 to 40%
-educated patient on importance of fluid restriction
-Device interrogation completed in ER with uptrending OptiVol and ongoing AT/AF episode since 06/25/24. If med rec accurate continues on Amio 200 mg twice daily. He has limited other antiarrhythmic drug options. It does not appear he has ever had
an ablation
-By review of telemetry in ER heart rates in 100s, V paced. Blood pressures on the low side. Unclear if ideal digoxin candidate given transient renal insufficiency. Continue Eliquis
-Continue Coreg, Jardiance, spironolactone. Avoiding DANN/ARB given history of angioedema from DANN inhibitor in past
-trop mildly elevated and flat at 0.06. suspected nonischemic myocardial injury. last cath earlier this year 10/22/23 with patent SVG-PDA and nonobstructive L coronary system disease
-d/w ER nursing. d/w patient and at bedside
Data Reviewed
-
EKG: Tracing Personally Visualized and interpreted
Radiology: Report Reviewed by me
Medical Tests (Nuc Med, Echo etc): Report Reviewed by me
Labs: Labs Reviewed by me
Old Records: Reviewed
[2024-06-29 12:28] LABS: Glucose - Point of Care 79 mg/dl (70-99)
--- NOTE | 2024-06-29 12:35 | EDRN ---
Pt's glucose 79. Pt was fed a boxed lunch.
--- NOTE | 2024-06-29 14:23 | EDRN ---
Pt just returned from [employer] and . Pt replaced on cardiac cath technologist at this time.
--- NOTE | 2024-06-29 16:39 | EDRN ---
Admission orders done w/ 'process transfer' at this time as it has been 4 hours.
--- NOTE | 2024-06-29 16:47 | EDRN ---
No Delay Report sent to IVU at this time for room 2258. Attempting to give verbal report at this time. Dr. Eloy Heath was in to see pt at this time.
--- NOTE | 2024-06-29 16:49 | EDRN ---
No Delay REport sent to IVU for room 2258 at this time and verbal report given to Melinda LLANOS in IVU and she said pt can go up to floor.
[2024-06-29] MEDS: LASIX 40 MG IV (17:51)
[2024-06-29] MEDS: LIPITOR 80 MG PO (17:51)
[2024-06-29] MEDS: ASPIR LOW (ENTERIC COATED) 81 MG PO (17:51)
[2024-06-29 18:01] LABS: Glucose - Point of Care 110 mg/dl (70-99)
[2024-06-29] MEDS: NOVOLOG FLEXPEN SC (18:10)
[2024-06-29] MEDS: NOVOLOG FLEXPEN-LOW RESISTANCE SC (18:10)
--- NOTE | 2024-06-29 18:14 | PTCARENOTE ---
Rec'd from ED. VSS. Tele- V-paced 100s. Assessment completed as documented. Pt currently has no complaints. Oriented to room. Currently in bed; call lisa w/in reach.
[2024-06-29] MEDS: ELIQUIS 5 MG PO (20:55)
[2024-06-29] MEDS: PACERONE 200 MG PO (20:55)
[2024-06-29 22:38] LABS: Glucose - Point of Care 117 mg/dl (70-99)
[2024-06-29] MEDS: LANTUS 0.2 UNITS SC (23:08)
[2024-06-30] VITALS (12 sets, daily range): BP systolic 98–118; BP diastolic 69–86; PULSE 108; BMI 29.7
--- NOTE | 2024-06-30 05:36 | DOWNTIME ---
There was a [employer] Client Pack Mule Worker Downtime on 06/30/2024 from 0100 to 06/30/2024 at 0350. Downtime documentation of patient's care, including medication administrations, has been reconciled in the electronic record per guidelines. Refer to the
patient's paper chart under the miscellaneous tab to see printed paper medication records and downtime forms.
[2024-06-30 06:13] LABS: TSH Reflex To Free T4 3.95 uIU/ml (0.47-4.68)
--- NOTE | 2024-06-30 06:34 | W.PN.HOSP.TC ---
Today's Communication/Plan
-
c/w IV Lasix
c/w lower dose of Coreg & Amiodarone
Assessment / Plan
Assessment / Plan
Physical Exam
General: No Apparent Distress and Appears Chronically Ill
HEENT: Anicteric and Moist mucous membranes
Respiratory: Mild basal Rales
Cardiac: S1/S2 and Tachycardia
GI: Soft and Non Tender
Genito-urinary: No costovertebral tender; No Hodge
Musculoskeletal: No Clubbing, No Cyanosis and No Edema
Skin: Warm; No Jaundice
Neuro: AO x 3 and Nonfocal/grossly intact
Psych: Calm and Intact Judgment/Insight
79 years old male presented with fatigue and exertional shortness of breath
# Acute on chronic heart failure with reduced ejection fraction
Last echocardiogram in March 2024 showed LVEF 35 to 40% ( EF % improved per records)
c/w IV Lasix as BP tolerates
We ruled out PE by negative LE US for DVT & Low probability lung V/Q scan
No signs of pneumonia/pulmonary infection.
Lower dose of Coreg
Appreciate cardiology input
#Hypotension.
resolving.
# Tachycardia, paced rhythm. Known to have persistent atrial fibrillation.
Continue carvedilol but lower dose to accommodate Diuretic therapy
. Monitor blood pressure.
# Non [place] elevation of troponin
Chronic, not medically significant in this clinical scenario
# Diabetes.
Continue with insulin therapy. Avoid hypoglycemia.
# PAD, recent right carotid bypass with a graft. Continue aspirin therapy
#Status post BiV ICD implant Medtronic in December 2023
#COPD
No wheezes, to check ambulatory oxygen level upon discharge
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
# Chronic left bundle branch block
# Status post bioprosthetic AVR in 2017 for severe aortic stenosis
# Coronary artery disease, chronic positive troponin.
Total time spent to see the patient, examine the patient, review data and lab results, discuss treatment plan with patient, nursing care around 55 minutes
Anticipated Discharge: 24 - 48 hours
Subjective/Interval History
-
Date of Service: June 30, 2024
He feels better
No chest pain
Lesss sob
Objective Data
-
Vital Signs:
Vital Signs
Temp Pulse Resp BP Pulse Ox
97.4 F 108 18 106/72 97
06/30/24 04:31 06/30/24 05:15 06/30/24 04:31 06/30/24 04:28 06/30/24 04:31
I&O
06/28/24 06/29/24 06/30/24
06:59 06:59 06:59
Intake Total 150 / 150
Output Total 100 / 100
Balance 50 / 50
[2024-06-30 07:34] LABS: Glucose - Point of Care 113 mg/dl (70-99)
[2024-06-30] MEDS: NOVOLOG FLEXPEN-LOW RESISTANCE SC ×2 (07:34→12:23)
[2024-06-30] MEDS: MAGNESIUM OXIDE 500 MG PO (09:02)
[2024-06-30] MEDS: ELIQUIS 5 MG PO ×2 (09:02→19:32)
[2024-06-30] MEDS: PACERONE 200 MG PO ×2 (09:02→19:33)
[2024-06-30] MEDS: COREG 3.125 MG PO ×2 (09:03→19:32)
[2024-06-30] MEDS: LASIX 40 MG IV ×2 (09:03→16:53)
[2024-06-30] MEDS: NOVOLOG FLEXPEN SC (09:04)
--- NOTE | 2024-06-30 11:51 | CM ---
Chart reviewed. Patient is independent of ADLS, lives with his in a split level home, 0 ALEXUS, 0 DME. Plan is for the patient to return home. CM to follow
[2024-06-30 12:21] LABS: Glucose - Point of Care 122 mg/dl (70-99)
[2024-06-30] MEDS: NOVOLOG FLEXPEN 5 UNITS SC (12:34)
[2024-06-30] MEDS: ASPIR LOW (ENTERIC COATED) 81 MG PO (16:53)
[2024-06-30] MEDS: LIPITOR 80 MG PO (16:54)
--- NOTE | 2024-06-30 17:03 | W.PN.CARDCBS ---
Today's Communication / Plan
-
Remains volume overloaded. Continue Lasix 40 mg IV twice daily. Check repeat basic metabolic panel.
Continue Coreg, amiodarone, and Eliquis.
He is not to do well with this atrial tachycardia and likely will need cardioversion prior to discharge.
Impression / Plan
-
Primary Associate Brand Manager: Dr. Yoo
Assessment:
Presentation with SOB
Acute on chronic heart failure with reduced ejection fraction
Acute on chronic renal insufficiency likely secondary to cardiorenal syndrome
Elevated troponin, suspected nonischemic myocardial injury
Paroxysmal atrial fibrillation
s/p TARA/CV 11/24/23
Bradycardia/prolonged QTc post CV
Chronic amiodarone therapy - with history of abnormal LFTs
Chronic OAC with eliquis
Left bundle branch block, chronic
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
s/p Medtronic BiV ICD 12/24/23
s/p ICD wound revision 01/14/24
Coronary artery disease status post RCA PCI in 2005 and SVG to PDA in 2016 with recent cardiac catheterization noting significant mid RCA disease with RPDA filling through the widely patent SVG October 22, 2023
Severe s/p bioprosthetic AVR 2016
Hypertension
Hyperlipidemia
Left carotid CEA 2005
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
PAD s/p RLE bypass surgery
COPD
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
Echo 10/14/2023: Normal LV size with severely reduced LV systolic function, EF estimated 10 to 15%. Apical akinesis. Mild LVH. Grade 3 diastolic dysfunction with increased filling pressures. Mild MR. #27 bovine aortic valve with peak/mean
gradient 9/5 mmHg with trace AI. No significant TR and unable to estimate right heart pressures.
ECHO 03/19/24: EF 35 to 40%, mild concentric LVH, well-seated, #27 bovine aortic valve replacement with peak/mean gradients 13/6 mmHg, trace TR, PAP 39 mmHg, trace FL
Plan:
-Patient underwent right common carotid to internal carotid bypass surgery 06/09/2024. incision site appears well healing. Over the last 2 weeks, reports worsening shortness of breath. reports significant oral intake
-proBNP 12,300. Chest x-ray with mild CHF. Will diurese with 40 mg IV Lasix twice daily. He has history of cardiorenal syndrome with CHF in the past. Creatinine 1.7 on 06/29. Repeat in AM.
-Last echo from 03/2024 with results as above, EF 35 to 40%
-educated patient on importance of fluid restriction
-Device interrogation completed in ER with uptrending OptiVol and ongoing AT/AF episode since 06/25/24. If med rec accurate continues on Amio 200 mg twice daily. With tendency proceed with cardioversion 1129 if remains in atrial tachycardia
-By review of telemetry in ER heart rates in 100s, V paced. Blood pressures on the low side. Continue Eliquis
-Continue Coreg, Jardiance, spironolactone. Avoiding DANN/ARB given history of angioedema from DANN inhibitor in past
-trop mildly elevated and flat at 0.06. suspected nonischemic myocardial injury. last cath earlier this year 10/22/23 with patent SVG-PDA and nonobstructive L coronary system disease
-d/w ER nursing. d/w patient and at bedside
Progress Note - Associate Brand Manager
Subjective
Date of Service: June 30, 2024
Slowly improving. Ventricular rates remain in the 110 range. Still with shortness of breath
Objective
Labs:
06/29/24 09:18
06/29/24 09:18
Labs
Hgb 14.4 g/dL (13.0-18.0) 06/29/24 09:18
Hct 43.9 % (39.0-52.0) 06/29/24 09:18
Plt Count 225 10^3/uL (130-400) 06/29/24 09:18
Sodium 140 mmol/L (135-145) 06/29/24 09:18
Potassium 4.7 mmol/L (3.5-5.1) 06/29/24 09:18
BUN 40 mg/dl (9-20) H 06/29/24 09:18
Creatinine 1.7 mg/dL (0.7-1.3) H 06/29/24 09:18
Glucose 138 mg/dl (70-99) H 06/29/24 09:18
Troponins
06/29/24 06/29/24
09:18 12:04
Troponin I 0.063 H* 0.060 H*
Vital Signs and I&O:
Vital Signs
Temp Pulse Resp BP Pulse Ox
97.5 F 109 20 98/73 98
06/30/24 14:57 06/30/24 15:00 06/30/24 14:57 06/30/24 14:59 06/30/24 14:57
Vital Signs
Temp Pulse Resp BP Pulse Ox
97.5 F 109 20 98/73 98
06/30/24 14:57 06/30/24 15:00 06/30/24 14:57 06/30/24 14:59 06/30/24 14:57
Intake & Output
06/28/24 06/29/24 06/30/24 07/01/24
06:59 06:59 06:59 06:59
Intake Total 150 / 150 300 / 300
Output Total 100 / 100
Balance 50 / 50 300 / 300
Physical Exam
Physical Exam
GEN: No distress, awake, Ox3
HEENT: supple, anicteric, mmm
LUNGS: scatt rhonchi
CV: Reg, tachy, S1/S2, 1/6 syst LSB, no gallop
ABD: soft, BS+, NT/ND
EXT: No edema
NEURO: Gross non-focal
SKIN: No rash
[2024-06-30 17:16] LABS: Glucose - Point of Care 158 mg/dl (70-99)
[2024-06-30] MEDS: NOVOLOG FLEXPEN-LOW RESISTANCE 1 UNITS SC (17:20)
[2024-06-30] MEDS: NOVOLOG FLEXPEN 7 UNITS SC (17:20)
[2024-06-30] MEDS: KCL 20 MEQ PO (19:33)
[2024-06-30 22:32] LABS: Glucose - Point of Care 90 mg/dl (70-99)
[2024-06-30] MEDS: LANTUS SC (22:48)
[2024-06-30] MEDS: LANTUS 0.1 UNITS SC (23:08)
[2024-07-01 02:28] VITALS: BP 111/80
[2024-07-01 03:30] VITALS: BMI 29.8
[2024-07-01 04:52] LABS: Blood Urea Nitrogen 44 mg/dl (9-20); Calcium 8.8 mg/dl (8.4-10.2); Carbon Dioxide 28 mmol/L (22-30); Chloride 100 mmol/L (98-107); Estimated Creatinine Clearance 42 ml/min; Glucose 89 mg/dl (70-99); Potassium 4.5 mmol/L (3.5-5.1); Sodium 139 mmol/L (135-145)
--- NOTE | 2024-07-01 04:55 | PTCARENOTE ---
Pt.'s HS blood sugar 90 (2230 last night), due for Lantus 20 units. Pt. stated dose would drop him too low. House NICHOLE Doe notified, dose decreased to 10 units and given. Glucose on BMP 89 this morning. Otherwise pt. independent and
ambulatory in the room, no complaints of chest discomfort, some [place] assessed with pulse ox mid 90's on RA.
--- NOTE | 2024-07-01 06:40 | W.PN.HOSP.TC ---
Today's Communication/Plan
-
# KATJA
creatinine around 1.6 from 1.7,
Bladder scan is added to look for retention
Check urinalysis and urine sodium
Avoid hypotension. Given IVF on admission. Now on Lasix.
c/w current regimen
- Tachycardia management, appreciate cardiology help
Assessment / Plan
Assessment / Plan
Physical Exam
General: No Apparent Distress and Appears Chronically Ill
HEENT: Anicteric and Moist mucous membranes
Respiratory: Mild basal Rales
Cardiac: S1/S2 and Tachycardia
GI: Soft and Non Tender
Genito-urinary: No costovertebral tender; No Hodge
Musculoskeletal: No Clubbing, No Cyanosis and No Edema
Skin: Warm; No Jaundice
Neuro: AO x 3 and Nonfocal/grossly intact
Psych: Calm and Intact Judgment/Insight
79 years old male presented with fatigue and exertional shortness of breath
# Acute on chronic heart failure with reduced ejection fraction
Last echocardiogram in March 2024 showed LVEF 35 to 40% ( EF % improved per records)
c/w IV Lasix as BP tolerates
We ruled out PE by negative LE US for DVT & Low probability lung V/Q scan
No signs of pneumonia/pulmonary infection.
Lower dose of Coreg
Appreciate cardiology input
# KATJA
creatinine around 1.6 from 1.7, continue to monitor
Bladder scan is added to look for retention
Check urinalysis and urine sodium
Avoid hypotension
#Hypotension.
resolving.
# Tachycardia, paced rhythm. Known to have persistent atrial fibrillation.
Continue carvedilol but lower dose to accommodate Diuretic therapy
. Monitor blood pressure.
# Non [place] elevation of troponin
Chronic, not medically significant in this clinical scenario
# Diabetes.
Continue with insulin therapy. Avoid hypoglycemia.
# PAD, recent right carotid bypass with a graft. Continue aspirin therapy
#Status post BiV ICD implant Medtronic in December 2023
#COPD
No wheezes, to check ambulatory oxygen level upon discharge
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
# Chronic left bundle branch block
# Status post bioprosthetic AVR in 2017 for severe aortic stenosis
# Coronary artery disease, chronic positive troponin.
Total time spent to see the patient, examine the patient, review data and lab results, discuss treatment plan with patient, nursing care around 55 minutes
Anticipated Discharge: > 48 hours
Subjective/Interval History
-
Date of Service: July 01, 2024
No sob
No chest pain
Objective Data
-
Labs:
Laboratory Results
07/01/24
03:29
Sodium 139
Potassium 4.5
Chloride 100
Carbon Dioxide 28
BUN 44 H
Creatinine 1.6 H
Glucose 89
Calcium 8.8
Vital Signs:
Vital Signs
Temp Pulse Resp BP Pulse Ox
97.6 F 107 18 111/80 97
07/01/24 02:29 07/01/24 03:00 07/01/24 02:29 07/01/24 02:28 07/01/24 02:29
I&O
06/29/24 06/30/24 07/01/24
06:59 06:59 06:59
Intake Total 150 / 150 780 / 780
Output Total 100 / 100
Balance 50 / 50 780 / 780
[2024-07-01 06:49] VITALS: BP 118/79
[2024-07-01 06:57] LABS: Glucose - Point of Care 87 mg/dl (70-99)
[2024-07-01] MEDS: NOVOLOG FLEXPEN-LOW RESISTANCE SC ×3 (08:14→18:14)
[2024-07-01] MEDS: PACERONE 200 MG PO ×2 (08:38→19:32)
[2024-07-01] MEDS: MAGNESIUM OXIDE 500 MG PO (08:38)
[2024-07-01] MEDS: KCL 20 MEQ PO ×2 (08:38→19:32)
[2024-07-01] MEDS: ELIQUIS 5 MG PO ×2 (08:38→19:32)
[2024-07-01] MEDS: COREG 3.125 MG PO ×2 (08:38→19:31)
[2024-07-01] MEDS: NOVOLOG FLEXPEN 5 UNITS SC ×3 (08:39→18:14)
[2024-07-01] MEDS: LASIX 40 MG IV ×2 (08:39→16:11)
--- NOTE | 2024-07-01 09:37 | W.PN.CARDCBS ---
Today's Communication / Plan
-
Will continue with IV Lasix. Continue to attempt to diurese.
Creatinine down to 1.6. Continue to follow.
Continue amiodarone and Eliquis.
Will proceed with cardioversion in a.m.
Impression / Plan
-
Primary Cigarette Making Machine Catcher: Dr. Yoo
Assessment:
Presentation with SOB
Acute on chronic heart failure with reduced ejection fraction
Acute on chronic renal insufficiency likely secondary to cardiorenal syndrome
Elevated troponin, suspected nonischemic myocardial injury
Paroxysmal atrial fibrillation
s/p TARA/CV 11/24/23
Bradycardia/prolonged QTc post CV
Chronic amiodarone therapy - with history of abnormal LFTs
Chronic OAC with eliquis
Left bundle branch block, chronic
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
s/p Medtronic BiV ICD 12/24/23
s/p ICD wound revision 01/14/24
Coronary artery disease status post RCA PCI in 2005 and SVG to PDA in 2016 with recent cardiac catheterization noting significant mid RCA disease with RPDA filling through the widely patent SVG October 22, 2023
Severe s/p bioprosthetic AVR 2016
Hypertension
Hyperlipidemia
Left carotid CEA 2005
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
PAD s/p RLE bypass surgery
COPD
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
Echo 10/14/2023: Normal LV size with severely reduced LV systolic function, EF estimated 10 to 15%. Apical akinesis. Mild LVH. Grade 3 diastolic dysfunction with increased filling pressures. Mild MR. #27 bovine aortic valve with peak/mean
gradient 9/5 mmHg with trace AI. No significant TR and unable to estimate right heart pressures.
ECHO 03/19/24: EF 35 to 40%, mild concentric LVH, well-seated, #27 bovine aortic valve replacement with peak/mean gradients 13/6 mmHg, trace TR, PAP 39 mmHg, trace [place]
Plan:
-Patient underwent right common carotid to internal carotid bypass surgery 06/09/2024. incision site appears well healing. Over the last 2 weeks, reports worsening shortness of breath. reports significant oral intake
-proBNP 12,300. Chest x-ray with mild CHF.
-Continue diuresis with IV Lasix. Creatinine improved and down to 1.6.
-Last echo from 03/2024 with results as above, EF 35 to 40%
-educated patient on importance of fluid restriction
-Device interrogation completed in ER with uptrending OptiVol and ongoing AT/AF episode since 06/25/24. If med rec accurate continues on Amio 200 mg twice daily. Will proceed with cardioversion in a.m.
-By review of telemetry in ER heart rates in 100s, V paced. Blood pressures on the low side. Continue Eliquis
-Continue Coreg, Jardiance, spironolactone. Avoiding DANN/ARB given history of angioedema from DANN inhibitor in past
-trop mildly elevated and flat at 0.06. suspected nonischemic myocardial injury. last cath earlier this year 10/22/23 with patent SVG-PDA and nonobstructive L coronary system disease
Progress Note - Cigarette Making Machine Catcher
Subjective
Date of Service: July 01, 2024
Shortness of breath is slightly improved. Remains in atrial tachycardia.
Objective
Labs:
06/29/24 09:18
07/01/24 03:29
Labs
Hgb 14.4 g/dL (13.0-18.0) 06/29/24 09:18
Hct 43.9 % (39.0-52.0) 06/29/24 09:18
Plt Count 225 10^3/uL (130-400) 06/29/24 09:18
Sodium 139 mmol/L (135-145) 07/01/24 03:29
Potassium 4.5 mmol/L (3.5-5.1) 07/01/24 03:29
BUN 44 mg/dl (9-20) H 07/01/24 03:29
Creatinine 1.6 mg/dL (0.7-1.3) H 07/01/24 03:29
Glucose 89 mg/dl (70-99) 07/01/24 03:29
Troponins
06/29/24 06/29/24
09:18 12:04
Troponin I 0.063 H* 0.060 H*
Vital Signs and I&O:
Vital Signs
Temp Pulse Resp BP Pulse Ox
96.6 F L 108 20 118/79 98
07/01/24 06:47 07/01/24 08:39 07/01/24 06:47 07/01/24 08:39 07/01/24 06:47
Vital Signs
Temp Pulse Resp BP Pulse Ox
96.6 F L 108 20 118/79 98
07/01/24 06:47 07/01/24 08:39 07/01/24 06:47 07/01/24 08:39 07/01/24 06:47
Intake & Output
06/29/24 06/30/24 07/01/24 07/02/24
06:59 06:59 06:59 06:59
Intake Total 150 / 150 780 / 780
Output Total 100 / 100
Balance 50 / 50 780 / 780
Physical Exam
Physical Exam
GEN: No distress, awake, Ox3
HEENT: supple, anicteric, mmm
LUNGS: CTA, no wheezes/rales
CV: Reg, tachy, S1/S2, 1/6 syst LSB, no gallop
ABD: soft, BS+, NT/ND
EXT: No edema
NEURO: Gross non-focal
SKIN: No rash
[2024-07-01 11:37] VITALS: BP 108/78
[2024-07-01 12:24] LABS: Glucose - Point of Care 111 mg/dl (70-99)
[2024-07-01 15:16] VITALS: BP 101/73
[2024-07-01] MEDS: LIPITOR 80 MG PO (16:12)
[2024-07-01] MEDS: ASPIR LOW (ENTERIC COATED) 81 MG PO (16:12)
[2024-07-01 18:11] LABS: Glucose - Point of Care 112 mg/dl (70-99)
--- NOTE | 2024-07-01 19:02 | PTCARENOTE ---
pt is paced on the monitor, hr in the 100s, vss. pt offers no complaints at this time. pt educated on plan of care and pt verbalized understanding. call gonzalez within reach.
[2024-07-01] MEDS: NOVOLOG FLEXPEN SC (19:05)
[2024-07-01 19:16] VITALS: BP 111/76
[2024-07-01 21:12] LABS: Glucose - Point of Care 136 mg/dl (70-99)
--- NOTE | 2024-07-01 21:24 | W.PN.UPDATE ---
Update Note
Progress Note Update
pt requesting lower dose of lantus tonight for fear his BG will 'drop.' Accucheck 136. Wants same dose as he received previous night (10unit)
[2024-07-01] MEDS: LANTUS 0.1 UNITS SC (21:48)
[2024-07-01 21:52] VITALS: BP 100/75
[2024-07-02] VITALS (7 sets, daily range): BP systolic 95–122; BP diastolic 63–87; PULSE 68; O2SAT 97; BMI 29.9
--- NOTE | 2024-07-02 03:33 | PTCARENOTE ---
Pt. bladder scanned post void with results of 20 ml.
[2024-07-02 03:46] LABS: Hematocrit 43.6 % (39.0-52.0); Hemoglobin 14.5 g/dL (13.0-18.0); Mean Corp Hgb Conc. 33.3 g/dL (33.0-37.0); Mean Corpuscular Hgb 31.9 pg (27.0-31.0); Mean Corpuscular Volume 95.8 fL (80.0-94.0); Mean Platelet Volume 9.7 fL (7.4-10.4); Platelet Count 227 10^3/uL (130-400); Red Blood Cell Count 4.55 10^6/uL (4.70-6.10); Red Cell Dist. Width 16.8 % (11.5-14.5); White Blood Cell Count 10.1 10^3/uL (4.8-10.8)
[2024-07-02 04:13] LABS: Blood Urea Nitrogen 43 mg/dl (9-20); Calcium 8.8 mg/dl (8.4-10.2); Carbon Dioxide 27 mmol/L (22-30); Chloride 101 mmol/L (98-107); Estimated Creatinine Clearance 52 ml/min; Glucose 105 mg/dl (70-99); Potassium 4.5 mmol/L (3.5-5.1); Sodium 139 mmol/L (135-145); eGFR 56.58
--- NOTE | 2024-07-02 06:43 | W.PN.HOSP.TC ---
Today's Communication/Plan
-
NPO for the cardioversion
Assessment / Plan
Assessment / Plan
Physical Exam
General: No Apparent Distress and Appears Chronically Ill
HEENT: Anicteric and Moist mucous membranes
Respiratory: clear lungs
Cardiac: S1/S2 and Tachycardia
GI: Soft and Non Tender
Genito-urinary: No costovertebral tender; No Hodge
Musculoskeletal: No Clubbing, No Cyanosis and No Edema
Skin: Warm; No Jaundice
Neuro: AO x 3 and Nonfocal/grossly intact
Psych: Calm and Intact Judgment/Insight
79 years old male presented with fatigue and exertional shortness of breath
# Acute on chronic heart failure with reduced ejection fraction
Last echocardiogram in March 2024 showed LVEF 35 to 40% ( EF % improved per records)
c/w IV Lasix as BP tolerates
We ruled out PE by negative LE US for DVT & Low probability lung V/Q scan
No signs of pneumonia/pulmonary infection.
Lower dose of Coreg to use higher dose of Lasix
Appreciate cardiology input
# KATJA
creatinine around 1.3 from 1.7, continue to monitor
Bladder scan was added to look for retention but was not charted.
Holding Lasix for NPO and low BP this morning
Avoid hypotension
#Hypotension.
resolving.
# Tachycardia, paced rhythm. Known to have persistent atrial fibrillation.
Plan for cardioversion 07/02
Continue carvedilol but lower dose to accommodate Diuretic therapy
. Monitor blood pressure.
# Non [place] elevation of troponin
Chronic, not medically significant in this clinical scenario
# Diabetes.
Continue with insulin therapy. Avoid hypoglycemia.
# PAD, recent right carotid bypass with a graft. Continue aspirin therapy
#Status post BiV ICD implant Medtronic in December 2023
#COPD
No wheezes, to check ambulatory oxygen level upon discharge
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
# Chronic left bundle branch block
# Status post bioprosthetic AVR in 2017 for severe aortic stenosis
# Coronary artery disease, chronic positive troponin.
Total time spent to see the patient, examine the patient, review data and lab results, discuss treatment plan with patient, nursing care around 55 minutes
Anticipated Discharge: Within 24 hours
Subjective/Interval History
-
Date of Service: July 02, 2024
No chest pain
NPO for the procedure
Objective Data
-
Labs:
Laboratory Results
07/02/24
03:19
WBC 10.1
Hgb 14.5
Hct 43.6
Plt Count 227
Sodium 139
Potassium 4.5
Chloride 101
Carbon Dioxide 27
BUN 43 H
Creatinine 1.3
Glucose 105 H
Calcium 8.8
Vital Signs:
Vital Signs
Temp Pulse Resp BP Pulse Ox
97.0 F 108 18 102/80 95
07/02/24 03:09 07/02/24 03:05 07/02/24 03:09 07/02/24 03:05 07/02/24 03:09
I&O
06/30/24 07/01/24 07/02/24
06:59 06:59 06:59
Intake Total 150 / 150 780 / 780 960 / 960
Output Total 100 / 100
Balance 50 / 50 780 / 780 960 / 960
[2024-07-02] MEDS: COREG 3.125 MG PO ×2 (08:23→19:51)
[2024-07-02] MEDS: ELIQUIS 5 MG PO ×2 (08:23→19:51)
[2024-07-02] MEDS: KCL 20 MEQ PO (08:23)
[2024-07-02] MEDS: MAGNESIUM OXIDE 500 MG PO (08:23)
[2024-07-02] MEDS: PACERONE 200 MG PO ×2 (08:24→19:51)
[2024-07-02 08:41] LABS: Glucose - Point of Care 97 mg/dl (70-99)
[2024-07-02] MEDS: NOVOLOG FLEXPEN-LOW RESISTANCE SC ×2 (08:41→13:43)
--- NOTE | 2024-07-02 11:29 | ITS.CL.CARDI ---
Clinical Engineer - Cardioversion
Cardioversion
Procedure Report:
Date of Procedure: 07/02/24
Procedure: Cardioversion
Indication: Symptomatic atrial tachycardia
Performing Physician: Kameron Weber MD
Technique: The patient was brought to the holding area. Signed informed consent was obtained. A time out was called and performed. The patient was anesthetized by the anesthesia service. Anticoagulation status was reviewed and appropriate. R2 pads
were placed anteriorly and posteriorly. A 200 J synchronized biphasic shock restored Av paced rhythm without significant bradycardia. There were no complications.
Conclusion: Uncomplicated cardioversion from atrial tachycardia to AV paced rhythm.
Recommendation: Routine post cardioversion care. Continue terminal computer operator anticoagulation.
[2024-07-02 12:32] LABS: Glucose - Point of Care 97 mg/dl (70-99)
--- NOTE | 2024-07-02 12:43 | W.PN.CARDCBS ---
Addendum entered and electronically signed by Kameron Weber MD 07/02/24 17:44:
I saw and examined the patient.
The Natural Sciences Department Chair's note was reviewed and I agree with the note.
Comment:
GEN: No distress, awake, Ox3
HEENT: supple, anicteric, mmm
LUNGS: CTA, no wheezes/rales
CV: Reg, S1/S2, 1/6 syst LSB, no gallop
ABD: soft, BS+, NT/ND
EXT: No edema
NEURO: Gross non-focal
SKIN: No rash
Plan:
Status post cardioversion today now AV paced. Continue amiodarone and Eliquis.
Will diurese with IV Lasix for another 24 hours. Was somewhat hypoxic post cardioversion.
Hopeful for discharge in a.m.
Original Note:
Today's Communication / Plan
-
Still appears to be mildly volume overloaded, continue IV diuresis for another 24 hours
Status post cardioversion 07/02 now in sinus rhythm
Continue Amio, Eliquis
Anticipate discharge within 24 hours
Impression / Plan
-
Primary Rn Clinical Documentation: Dr. Yoo
Assessment:
Presented 06/29/2024 with SOB
Acute on chronic heart failure with reduced ejection fraction, proBNP 12,300
Acute on chronic renal insufficiency likely secondary to cardiorenal syndrome
Elevated troponin, peak trop 0.063, suspected nonischemic myocardial injury
KATJA, peak creat 1.7
Paroxysmal atrial fibrillation
s/p TARA/CV 11/24/23, 07/02/2024
Bradycardia/prolonged QTc post CV
Chronic amiodarone therapy - with history of abnormal LFTs
Chronic OAC with eliquis
Left bundle branch block, chronic
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
s/p Medtronic BiV ICD 12/24/23
s/p ICD wound revision 01/14/24
Coronary artery disease status post RCA PCI in 2005 and SVG to PDA in 2016 with recent cardiac catheterization noting significant mid RCA disease with RPDA filling through the widely patent SVG October 22, 2023
Severe s/p bioprosthetic AVR 2016
Hypertension
Hyperlipidemia
Left carotid CEA 2005
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
PAD s/p RLE bypass surgery
COPD
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
Echo 10/14/2023: Normal LV size with severely reduced LV systolic function, EF estimated 10 to 15%. Apical akinesis. Mild LVH. Grade 3 diastolic dysfunction with increased filling pressures. Mild MR. #27 bovine aortic valve with peak/mean
gradient 9/5 mmHg with trace AI. No significant TR and unable to estimate right heart pressures.
ECHO 03/19/24: EF 35 to 40%, mild concentric LVH, well-seated, #27 bovine aortic valve replacement with peak/mean gradients 13/6 mmHg, trace TR, PAP 39 mmHg, trace [place]
Plan:
-Patient underwent right common carotid to internal carotid bypass surgery 06/09/2024. incision site appears well healing. Over the last 2 weeks, reports worsening shortness of breath. reports significant oral intake
-proBNP 12,300. Chest x-ray with mild CHF. Device interrogation completed in ER with uptrending OptiVol
-Continue diuresis with IV Lasix. Weight down 4 lbs since admission
-Creatinine improved and down to 1.3 with diuresis. Peak creat 1.7
-Last echo from 03/2024 with results as above, EF 35 to 40%
-Continue Coreg, Jardiance, spironolactone. Avoiding DANN/ARB given history of angioedema from DANN inhibitor in past
-educated patient on importance of fluid restriction
History of paroxysmal atrial fibrillation on chronic anticoagulation with Eliquis
-Device interrogation on presentation shows ongoing AT/AF episode since 06/25/24.
-Continue Amio 200 mg twice daily.
-Successful cardioversion 07/02/2024 in am. Now V paced.
-Continue Eliquis
Elevated troponin. Peaked at 0.063. Suspect nonischemic myocardial injury secondary to acute heart failure exacerbation and A-fib with RVR.
-Last cath earlier this year 10/22/23 with patent SVG-PDA and nonobstructive L coronary system disease
-Continue medical management for CAD with aspirin, beta-vimal, Jardiance
HPI 06/29/2024:
Patient is a 79 yo M with chronic heart failure with reduced EF, chronic renal insufficiency, paroxysmal atrial fibrillation with history of amiodarone therapy, previously stopped due to abnormal LFTs/bradycardia/prolonged QT, however resumed
12/2023, chronic anticoagulation with Eliquis, she is not mixed ischemic and nonischemic cardiomyopathy and chronic left bundle branch block status post Medtronic BiV ICD 12/2023, CAD status post RCA PCI in 2005 and CABG x 1 and bioprosthetic AVR in
2016, PAD status post right lower extremity bypass surgery, COPD who underwent right common carotid to internal carotid bypass surgery 06/09/2024. We were not consulted during that admission. He reports for several days after discharge he felt
well, however since then has noted worsening shortness of breath and weakness. Denies weight changes, fevers chills. Does report lower extremity edema. Also reports he feels chest pains 'around his heart' as though it is 'pushing on his heart'.
He also feels that there is something 'weird' with his defibrillator. reports that since his surgery he has been drinking a lot�states that his fluid restriction is 64 ounces, however he has been drinking close to double this daily. proBNP
12,300. Chest x-ray with evidence of mild CHF. Taking po lasix 30mg BID. Cardiology consulted for evaluation.
Progress Note - Rn Clinical Documentation
Subjective
Date of Service: July 02, 2024
Objective
Labs:
07/02/24 03:19
07/02/24 03:19
Labs
Hgb 14.5 g/dL (13.0-18.0) 07/02/24 03:19
Hct 43.6 % (39.0-52.0) 07/02/24 03:19
Plt Count 227 10^3/uL (130-400) 07/02/24 03:19
Sodium 139 mmol/L (135-145) 07/02/24 03:19
Potassium 4.5 mmol/L (3.5-5.1) 07/02/24 03:19
BUN 43 mg/dl (9-20) H 07/02/24 03:19
Creatinine 1.3 mg/dL (0.7-1.3) 07/02/24 03:19
Glucose 105 mg/dl (70-99) H 07/02/24 03:19
Troponins
06/29/24
12:04
Troponin I 0.060 H*
Vital Signs and I&O:
Vital Signs
Temp Pulse Resp BP Pulse Ox
97.0 F 109 18 122/75 94
07/02/24 08:02 07/02/24 08:00 07/02/24 08:02 07/02/24 07:57 07/02/24 08:02
Vital Signs
Temp Pulse Resp BP Pulse Ox
97.0 F 109 18 122/75 94
07/02/24 08:02 07/02/24 08:00 07/02/24 08:02 07/02/24 07:57 07/02/24 08:02
Intake & Output
06/30/24 07/01/24 07/02/24 07/03/24
06:59 06:59 06:59 06:59
Intake Total 150 / 150 780 / 780 960 / 960
Output Total 100 / 100
Balance 50 / 50 780 / 780 960 / 960
Physical Exam
Physical Exam
GEN: No distress, awake, Ox3, sitting in chair eating
HEENT: supple, anicteric, mmm
LUNGS: Crackles at bilateral bases CTA, no wheezes/rales
CV: Reg, S1/S2, 1/6 syst LSB murmur, no rub or gallop
ABD: soft, BS+, NT/ND
EXT: +1 bilateral lower extremity edema
NEURO: Gross non-focal
SKIN: No rash, warm, dry, pink
--- NOTE | 2024-07-02 12:45 | SUR.OPER ---
Pt returned from the cardioversion awake, alert and oriented. Room air 97%. OOB to the chair, gait steady. Vpaced on the monitor.
[2024-07-02] MEDS: NOVOLOG FLEXPEN SC (13:43)
--- NOTE | 2024-07-02 17:00 | CM ---
dc plans remain home with when medically stable
[2024-07-02] MEDS: ASPIR LOW (ENTERIC COATED) 81 MG PO (17:24)
[2024-07-02] MEDS: LIPITOR 80 MG PO (17:24)
[2024-07-02] MEDS: NOVOLOG FLEXPEN 7 UNITS SC (17:25)
[2024-07-02] MEDS: NOVOLOG FLEXPEN-LOW RESISTANCE 2 UNITS SC (17:25)
[2024-07-02] MEDS: COLACE 100 MG PO (17:30)
[2024-07-02 17:34] LABS: Glucose - Point of Care 233 mg/dl (70-99)
--- NOTE | 2024-07-02 21:44 | PTCARENOTE ---
received patient at the change of shift. AAOx3. sitting in the chair. independent in the room. offers no complaints. Vpaced on tele 60s. bp stable. 99% on RA. denies sob. +1 LE edema noted/weak pulses. R neck incision GLOBE TESTER, intact. reviewed plan of
care with patient and verbalized understanding. call gonzalez within reach. calls appropriately.
[2024-07-02] MEDS: KCL PO (22:14)
[2024-07-02 22:43] LABS: Glucose - Point of Care 167 mg/dl (70-99)
[2024-07-02] MEDS: LANTUS 0.2 UNITS SC (22:45)
[2024-07-03 03:50] VITALS: BP 107/75
[2024-07-03 04:25] LABS: Blood Urea Nitrogen 45 mg/dl (9-20); Calcium 8.8 mg/dl (8.4-10.2); Carbon Dioxide 26 mmol/L (22-30); Chloride 98 mmol/L (98-107); Estimated Creatinine Clearance 42 ml/min; Glucose 146 mg/dl (70-99); Magnesium 2.5 mg/dl (1.6-2.3); Potassium 4.8 mmol/L (3.5-5.1); Sodium 135 mmol/L (135-145)
--- NOTE | 2024-07-03 06:43 | W.PN.HOSP.TC ---
Today's Communication/Plan
-
dc planning
f/w stringer up soldering machine recommendations
Assessment / Plan
Assessment / Plan
Physical Exam
General: No Apparent Distress and Appears Chronically Ill
HEENT: Anicteric and Moist mucous membranes
Respiratory: clear lungs
Cardiac: S1/S2 and Tachycardia
GI: Soft and Non Tender
Genito-urinary: No costovertebral tender; No Hodge
Musculoskeletal: No Clubbing, No Cyanosis and No Edema
Skin: Warm; No Jaundice
Neuro: AO x 3 and Nonfocal/grossly intact
Psych: Calm and Intact Judgment/Insight
79 years old male presented with fatigue and exertional shortness of breath
# Acute on chronic heart failure with reduced ejection fraction
Last echocardiogram in March 2024 showed LVEF 35 to 40% ( EF % improved per records)
s/p IV Lasix
We ruled out PE by negative LE US for DVT & Low probability lung V/Q scan
No signs of pneumonia/pulmonary infection.
Lowered dose of Coreg to use higher dose of Lasix
Appreciate cardiology input
# KATJA
creatinine around 1.3 from 1.7, continue to monitor
Bladder scan was added to look for retention but was not charted.
Holding Lasix for NPO and low BP this morning
Avoid hypotension
#Hypotension.
resolving.
# Tachycardia, paced rhythm. Known to have persistent atrial fibrillation.
Status post cardioversion 07/02, AV paced. Continue amiodarone and Eliquis.
Continue carvedilol
. Monitored blood pressure.
# Non [place] elevation of troponin
Chronic, not medically significant in this clinical scenario
# Diabetes.
Continue with insulin therapy. Avoid hypoglycemia.
# PAD, recent right carotid bypass with a graft. Continue aspirin therapy
#Status post BiV ICD implant Medtronic in December 2023
#COPD
No wheezes, to check ambulatory oxygen level upon discharge
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
# Chronic left bundle branch block
# Status post bioprosthetic AVR in 2017 for severe aortic stenosis
# Coronary artery disease, chronic positive troponin.
Total discharge time spent to see the patient, examine the patient, review data and lab results, discuss discharge plan with patient, nursing care around 65 minutes
Anticipated Discharge: Today
Subjective/Interval History
-
Date of Service: July 03, 2024
No sob
No chest pain
Objective Data
-
Labs:
Laboratory Results
07/03/24
03:49
Sodium 135
Potassium 4.8
Chloride 98
Carbon Dioxide 26
BUN 45 H
Creatinine 1.6 H
Glucose 146 H
Calcium 8.8
Vital Signs:
Vital Signs
Temp Pulse Resp BP Pulse Ox
97.6 F 63 18 107/75 98
07/03/24 04:14 07/03/24 04:00 07/03/24 04:14 07/03/24 03:50 07/03/24 04:14
I&O
07/01/24 07/02/24 07/03/24
06:59 06:59 06:59
Intake Total 780 / 780 960 / 960 250 / 250
Balance 780 / 780 960 / 960 250 / 250
[2024-07-03 06:52] VITALS: BMI 30.1
[2024-07-03 06:55] VITALS: BP 110/77
[2024-07-03 06:59] LABS: Glucose - Point of Care 138 mg/dl (70-99)
[2024-07-03] MEDS: NOVOLOG FLEXPEN-LOW RESISTANCE SC (08:42)
[2024-07-03] MEDS: MAGNESIUM OXIDE 500 MG PO (09:22)
[2024-07-03] MEDS: ELIQUIS 5 MG PO (09:23)
[2024-07-03] MEDS: PACERONE 200 MG PO (09:23)
[2024-07-03] MEDS: COREG 3.125 MG PO (09:23)
[2024-07-03] MEDS: KCL PO (09:23)
[2024-07-03] MEDS: NOVOLOG FLEXPEN 5 UNITS SC (09:24)
--- NOTE | 2024-07-03 09:47 | PTCARENOTE ---
received patient this am, sitting in chair eating breakfast, voices no complaints. monitor shows AV paced, VSS. will continue to monitor.
--- NOTE | 2024-07-03 10:57 | W.PN.CARDCBS ---
Addendum entered and electronically signed by Allie Veloz DO 07/03/24 17:09:
I saw and examined the patient.
The Forestry Scientist's note was reviewed and I agree with the note.
Comment: Patient seen and examined. Chart reviewed. Patient reports improved shortness of breath and is Requesting discharge home today
GEN: NAD
HEENT: mmm
LUNGS: Mildly decreased breath sounds at bilateral bases CTA, no wheezes/rales
CV: Reg, S1/S2, 1/6 syst LSB murmur, no rub or gallop
ABD: soft, BS+, NT/ND
EXT: Trace bilateral lower extremity edema
Plan:
Paroxysmal atrial fibrillation status post cardioversion 07/02/2024
-Continue amiodarone And carvedilol. Carvedilol dose reduced and will reassess as an outpatient.
-Continue Uninterrupted Eliquis anticoagulation
-Monitor rhythm burden through device
Heart failure with reduced ejection fraction with initial proBNP 12,300
-Status post IV diuresis With increased creatinine
-Lasix held today but will resume tomorrow.
-Resume Lasix 30 mg twice daily and monitor volume status closely.
-Repeat labs next week to reassess renal function
-Continue Coreg, Jardiance, spironolactone.
-Patient has allergy to DANN inhibitors/ARB's secondary to angioedema
-Maintain sinus rhythm
-s/p right common carotid to internal carotid bypass surgery 06/09/2024.
-Outpatient follow-up with vascular surgery
-Continue aspirin and statin
Elevated troponin. Peaked at 0.063. Suspect nonischemic myocardial injury secondary to acute heart failure exacerbation and A-fib with RVR.
-Last cath earlier this year 10/22/23 with patent SVG-PDA and nonobstructive L coronary system disease
-Continue medical management for CAD with aspirin, beta-vimal, Jardiance
Bioprosthetic AVR in 2017 with 2D echocardiogram 03/19/2024 noting normal function with peak/mean gradients 13/6 mmHg.
Original Note:
Today's Communication / Plan
-
hold Lasix today.
On 07/04/2024 resume 30 mg p.o. Lasix in a.m. only. Then on 07/05/2024 resume normal outpatient dosing of Lasix 30 mg twice daily.
Hold potassium today
Needs BMP 5 days after d/c
Outpatient cardiology follow-up has been arranged
Impression / Plan
-
Primary Binder Roller: Dr. Yoo
Assessment:
Presented 06/29/2024 with SOB
Acute on chronic heart failure with reduced ejection fraction, proBNP 12,300
Acute on chronic renal insufficiency likely secondary to cardiorenal syndrome
Elevated troponin, peak trop 0.063, suspected nonischemic myocardial injury
KATJA, peak creat 1.7
Paroxysmal atrial fibrillation
s/p TARA/CV 11/24/23, 07/02/2024
Bradycardia/prolonged QTc post CV
Chronic amiodarone therapy - with history of abnormal LFTs
Chronic OAC with eliquis
Left bundle branch block, chronic
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
s/p Medtronic BiV ICD 12/24/23
s/p ICD wound revision 01/14/24
Coronary artery disease status post RCA PCI in 2005 and SVG to PDA in 2016 with recent cardiac catheterization noting significant mid RCA disease with RPDA filling through the widely patent SVG October 22, 2023
Severe s/p bioprosthetic AVR 2016
Hypertension
Hyperlipidemia
Left carotid CEA 2005
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
PAD s/p RLE bypass surgery
COPD
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
Echo 10/14/2023: Normal LV size with severely reduced LV systolic function, EF estimated 10 to 15%. Apical akinesis. Mild LVH. Grade 3 diastolic dysfunction with increased filling pressures. Mild MR. #27 bovine aortic valve with peak/mean
gradient 9/5 mmHg with trace AI. No significant TR and unable to estimate right heart pressures.
ECHO 03/19/24: EF 35 to 40%, mild concentric LVH, well-seated, #27 bovine aortic valve replacement with peak/mean gradients 13/6 mmHg, trace TR, PAP 39 mmHg, trace UT
Plan:
-Patient underwent right common carotid to internal carotid bypass surgery 06/09/2024. incision site appears well healing. Over the last 2 weeks, reports worsening shortness of breath. reports significant oral intake
-proBNP 12,300. Chest x-ray with mild CHF. Device interrogation completed in ER with uptrending OptiVol
-Creatinine bumped overnight now 1.6. Would hold Lasix today. On 07/04/2024 resume 30 mg p.o. Lasix in a.m. only. Then on 07/05/2024 resume normal outpatient dosing of Lasix 30 mg twice daily.
-Hold potassium today with holding of Lasix. K currently 4.8
-Last echo from 03/2024 with results as above, EF 35 to 40%
-Continue Coreg, Jardiance, spironolactone. Avoiding DANN/ARB given history of angioedema from DANN inhibitor in past
-educated patient on importance of fluid restriction
-Needs BMP in 5 days after d/c
History of paroxysmal atrial fibrillation on chronic anticoagulation with Eliquis
-Device interrogation on presentation shows ongoing AT/AF episode since 06/25/24.
-Successful cardioversion 07/02/2024 in am. Now V paced.
-Continue Amio 200 mg twice daily.
-Continue Eliquis 5 mg BID
Elevated troponin. Peaked at 0.063. Suspect nonischemic myocardial injury secondary to acute heart failure exacerbation and A-fib with RVR.
-Last cath earlier this year 10/22/23 with patent SVG-PDA and nonobstructive L coronary system disease
-Continue medical management for CAD with aspirin, beta-vimal, Jardiance
and nursing at bedside reviewed above plan. Outpatient cardiology follow-up has been arranged.
HPI 06/29/2024:
Patient is a 79 yo M with chronic heart failure with reduced EF, chronic renal insufficiency, paroxysmal atrial fibrillation with history of amiodarone therapy, previously stopped due to abnormal LFTs/bradycardia/prolonged QT, however resumed
12/2023, chronic anticoagulation with Eliquis, she is not mixed ischemic and nonischemic cardiomyopathy and chronic left bundle branch block status post Medtronic BiV ICD 12/2023, CAD status post RCA PCI in 2005 and CABG x 1 and bioprosthetic AVR in
2016, PAD status post right lower extremity bypass surgery, COPD who underwent right common carotid to internal carotid bypass surgery 06/09/2024. We were not consulted during that admission. He reports for several days after discharge he felt
well, however since then has noted worsening shortness of breath and weakness. Denies weight changes, fevers chills. Does report lower extremity edema. Also reports he feels chest pains 'around his heart' as though it is 'pushing on his heart'.
He also feels that there is something 'weird' with his defibrillator. reports that since his surgery he has been drinking a lot�states that his fluid restriction is 64 ounces, however he has been drinking close to double this daily. proBNP
12,300. Chest x-ray with evidence of mild CHF. Taking po lasix 30mg BID. Cardiology consulted for evaluation.
Progress Note - Binder Roller
Subjective
Date of Service: July 03, 2024
Patient seen and examined. Patient reports symptomatically he is feeling significantly better without shortness of breath or chest pain. He was able to sleep comfortably last night without difficulty.
Objective
Labs:
07/02/24 03:19
07/03/24 03:49
Labs
Hgb 14.5 g/dL (13.0-18.0) 07/02/24 03:19
Hct 43.6 % (39.0-52.0) 07/02/24 03:19
Plt Count 227 10^3/uL (130-400) 07/02/24 03:19
Sodium 135 mmol/L (135-145) 07/03/24 03:49
Potassium 4.8 mmol/L (3.5-5.1) 07/03/24 03:49
BUN 45 mg/dl (9-20) H 07/03/24 03:49
Creatinine 1.6 mg/dL (0.7-1.3) H 07/03/24 03:49
Glucose 146 mg/dl (70-99) H 07/03/24 03:49
Vital Signs and I&O:
Vital Signs
Temp Pulse Resp BP Pulse Ox
97.3 F 64 18 110/77 99
07/03/24 06:52 07/03/24 09:23 07/03/24 06:52 07/03/24 09:23 07/03/24 06:52
Vital Signs
Temp Pulse Resp BP Pulse Ox
97.3 F 64 18 110/77 99
07/03/24 06:52 07/03/24 09:23 07/03/24 06:52 07/03/24 09:23 07/03/24 06:52
Intake & Output
07/01/24 07/02/24 07/03/24 07/04/24
06:59 06:59 06:59 06:59
Intake Total 780 / 780 960 / 960 250 / 250
Balance 780 / 780 960 / 960 250 / 250
Physical Exam
Physical Exam
GEN: No distress, awake, Ox3, sitting in chair eating
HEENT: supple, anicteric, mmm
LUNGS: Mildly decreased breath sounds at bilateral bases CTA, no wheezes/rales
CV: Reg, S1/S2, 1/6 syst LSB murmur, no rub or gallop
ABD: soft, BS+, NT/ND
EXT: Trace bilateral lower extremity edema
NEURO: Gross non-focal
SKIN: No rash, warm, dry, pink
[2024-07-03 12:03] VITALS: BP 111/73
--- NOTE | 2024-07-03 12:38 | PTCARENOTE ---
D/C instructions given to patient and , both verbalizes understanding. INT D/C'd. telemetry D/C'd, personal belongings packed and sent home with patient. patient refused flu vaccine at this time. D/C to home via wc accompanied by staff.
--- NOTE | 2024-07-03 14:56 | W.DCSUMMARY ---
Discharge Summary
Discharge Data
Date of Admission: 06/29/24
Date of Discharge: 07/03/24
-
Pending Results: No
Hospital Course
79 years old male admitted to the hospital with history of progressive exertional shortness of breath and fatigue. Patient was found to have hypotension in the ER was given a bolus of normal saline with stabilizing of his blood pressure. Patient
was admitted to IVU unit. He was evaluated by shale miner. He was started on low-dose of intravenous furosemide as his blood pressure tolerated. His last echocardiogram in March 2024 showed left ventricular ejection fraction of 35 to 40%,
improved EF from previous echocardiogram. He had low probability lung VQ scan. Doppler ultrasound of lower extremities did not show deep venous thrombosis. Likelihood of pulmonary embolism was ruled out. He had acute kidney injury. Bladder scan
did not show retention. Patient was noticed to have tachycardia. He had history of persistent atrial fibrillation. Patient underwent successful cardioversion on 07/02 resulted and well-controlled paced rhythm. Kidney function stabilized with
creatinine around 1.6 upon discharge. Metformin was held due to instability of kidney function. Carvedilol dose was reduced to allow use of diuretic to avoid hypotension. Patient started to feel better. He was given a prescription to do
follow-up blood work after discharge. Patient remained hemodynamically stable and was discharged home in stable condition. Discharge directions were discussed with patient and his , they verbalized understanding.
Discharge Plan
-
Patient Disposition: Home (Routine Discharge)
Discharge Diagnosis/Procedures: Acute on chronic heart failure with reduced ejection fraction
Acute on chronic renal insufficiency likely secondary to cardiorenal syndrome
Paroxysmal atrial fibrillation status post successful cardioversion 07/02/2024. Now V paced.
Resume Lasix 30 mg on 07/04 ( one time dose)
then 30 mg twice a day on 07/05 and onward.
We lowered the dose of carvedilol(Coreg) due to low blood pressure and to avoid hypotension.
Repeat blodo work to monitor your potassium and kidney fuction.
- Diabetes. We recommend to hold metformin due to instability of your kidney function and to avoid acidosis.
Diet: Low Sodium and Diabetic, Carb Controlled
Blood Work: BMP in 5 days
Instructions: *[facility] Heart Failure Instructions
Referrals:
Roberto Yoo MD [Active] - 07/16/24 10:00 am (You have cardiology follow-up with Dr. Yoo in [address] in [address] [place] on July 16, 2024 at 10 AM. If you are unable to make this appointment please call [phone] to [facility])
Dennis Hidalgo MD [Family Provider] - in one to two weeks
Prescriptions:
New
carvedilol 3.125 mg Tablet
3.125 mg PO BID Qty: 60 0RF
Continued
aspirin 81 MG tablet,delayed release (DR/EC)
81 mg PO QPM
atorvastatin 80 MG tablet
80 mg PO QPM
cyanocobalamin (vitamin B-12) 1,000 MCG tablet
1,000 mcg PO DAILY
potassium chloride 10 mEq Tablet Extended Release
10 meq PO QPM
insulin glargine [Lantus U-100 Insulin] 100 unit/mL solution
20 unit SC HS
therapeutic multivitamin Tablet
1 tab PO DAILY
Eliquis 5 mg Tablet
5 mg PO BID
Jardiance 25 mg Tablet
12.5 mg PO DAILY
insulin aspart U-100 [Novolog FlexPen U-100 Insulin] 100 unit/mL (3 mL) insulin pen
5 unit SC BID@0800,1200
spironolactone 25 mg Tablet
25 mg PO DAILY Qty: 30 0RF
magnesium oxide 500 MG tablet
500 mg PO DAILY
furosemide 20 mg Tablet
30 mg PO BID
amiodarone 200 mg Tablet
200 mg PO BID
acetaminophen [Tylenol] 325 mg Tablet
650 mg PO Q4HPRN PRN (Reason: mild pain)
insulin aspart U-100 [Novolog U-100 Insulin aspart] 100 unit/mL Solution
7 unit SC QPM
Discontinued
metformin 1,000 MG tablet
1,000 mg PO BID
carvedilol [Coreg] 12.5 mg Tablet
12.5 mg PO BID
Discharge Orders:
Discharge Patient (As Directed); Ordered 07/03/24
Ordered By: Tatyana Christian
Care Plan Goals
Care Plan Goals:
Problem: Readiness for enhanced knowledge related to diagnosis and treatment plan
Goal: Understand your diagnosis and treatment plan needs, including medications if applicable.
Instructions: Know your diagnosis, underlying causes and treatment plan options, including medications if applicable. Consult with your health care team to learn about your diagnosis and treatment plan, including medications if applicable.
Discharge Date and Time
Discharge Date/Time: 07/03/24 12:42
Print Language: SINHALA
--- NOTE | 2024-07-07 10:02 | HFEDUCATE ---
Pt had a 72 hr phone call from PCP rep, Susan Hidalgo, on 07/05/24 at 2:49PM to discuss discharge, medications and F/U appointments. Pt had F/U appt on 07/06/24 at 5:45Pm with Dr. Dennis Hidalgo MD.
== END 2024-07-03 12:42 | disposition home or self-care (01) | DRG 291 ==
LOC: IVU 10:30
PROVIDERS: Internal Medicine Cardiovascular Disease; Physician Assistant Medical; Student in an Organized Health Care Education/Training Program; ADMITTING PHYSICIAN Internal Medicine; CONSULT PHYSICIAN Internal Medicine Cardiovascular Disease; EMERGENCY PHYSICIAN Student in an Organized Health Care Education/Training Program; FAMILY PHYSICIAN Family Medicine
PROC: 5A2204Z Restoration of Cardiac Rhythm, Single (ICD-10-PCS; 2024-07-02)
DX: I13.0 Hypertensive heart and chronic kidney disease with heart failure and stage 1 through stage 4 chronic kidney disease, or unspecified chronic kidney disease (principal); I50.23 Acute on chronic systolic (congestive) heart failure; I48.19 Other persistent atrial fibrillation; E11.22 Type 2 diabetes mellitus with diabetic chronic kidney disease; I5A Non-ischemic myocardial injury (non-traumatic); F17.200 Nicotine dependence, unspecified, uncomplicated; N18.9 Chronic kidney disease, unspecified; Z79.01 Long term (current) use of anticoagulants; I25.10 Atherosclerotic heart disease of native coronary artery without angina pectoris
CPT/HCPCS: 71046; 78582; 80048; 80053; 82962; 83735; 83880; 84443; 84484; 85025; 85027; 92960; 93005; 93970; 97110; 97116; 97162; 97166; 99285; A9540; A9567

== ENCOUNTER → 2024-07-15 08:03 | Outpatient (REF) | payer OTHER, SELFPAY | LOC: RAD 08:03 | PROVIDERS: ATTENDING PHYSICIAN Physician Assistant; FAMILY PHYSICIAN Family Medicine | DX: I65.21 Occlusion and stenosis of right carotid artery (principal) | CPT/HCPCS: 93880 ==

== ENCOUNTER → 2024-11-05 13:36 | Outpatient (REF) | payer OTHER, SELFPAY | LOC: DHVS 13:36 | PROVIDERS: ATTENDING PHYSICIAN Surgery Vascular Surgery | DX: I73.9 Peripheral vascular disease, unspecified (principal); I77.9 Disorder of arteries and arterioles, unspecified | CPT/HCPCS: 93880; 93922; 93925 ==

== ENCOUNTER → 2025-05-11 08:41 | Outpatient (REF) | payer OTHER, SELFPAY | LOC: RAD 08:41 | PROVIDERS: ATTENDING PHYSICIAN Surgery Vascular Surgery; FAMILY PHYSICIAN Family Medicine | DX: I65.21 Occlusion and stenosis of right carotid artery (principal); I73.9 Peripheral vascular disease, unspecified | CPT/HCPCS: 93880; 93922; 93925 ==